=== PATIENT | male | born 1945 | race Caucasian/White ===

== ENCOUNTER 2019-06-20 02:36 | Inpatient (IN) | payer OTHER ==
--- NOTE | 2019-06-20 03:07 | ER ---
Nurse's Notes [facility] Name: Mj Mendez Age: 74 yrs Sex: Male : 1945 Arrival Date: 06/20/2019 Time: 02:37 Bed 5 Private MD: Diagnosis: Dyspnea;Weakness;Type 1 diabetes mellitus;Obesity, unspecified;Anemia, unspecified;Hypoglycemia, unspecified;Elevated white blood cell count Presentation: 06/20 02:53 Presenting complaint: [facility] called with report that pt dx pneumonia via chest ak1 xray on 06/17. pt started augment 875mg 06/18. pt denies SOB. pt called his daughter asking to come to ER due to cough x3 days. pt was given Tessalon eusebia at 2130. Transition of care: patient was not received from another setting of care. Onset of symptoms is unknown. Risk Assessment: Do you want to hurt yourself or someone else? Patient reports no desire to harm self or others. Initial Sepsis Screen: Does the patient meet any 2 criteria? No. Patient's initial sepsis screen is negative. Does the patient have a suspected source of infection? No. Patient's initial sepsis screen is negative. Care prior to arrival: None. 02:53 Method Of Arrival: EMS: [facility] ak1 02:53 Acuity: PAMELA 3 ak1 Triage Assessment: 03:02 General: Appears in no apparent distress. Behavior is calm, cooperative. Pain: Denies ak1 pain. EENT: No signs and/or symptoms were reported regarding the EENT system. Neuro: Level of Consciousness is awake, alert, obeys commands, Oriented to person, place, time, situation, Sound Person are equal bilaterally. Cardiovascular: No deficits noted. Respiratory: Reports pt dx pneumonia via chest xray 06/17/19. pt c/o nonproductive cough X3 days. GI: No signs and/or symptoms were reported involving the gastrointestinal system. : No signs and/or symptoms were reported regarding the genitourinary system. Derm: No signs and/or symptoms reported regarding the dermatologic system. Musculoskeletal: pt with right hip fx. Historical: - Allergies: 03:02 metformin; ak1 - Home Meds: 03:02 amlodipine 5 mg oral tab 1 tab once daily [Active]; asprin 325mg daily [Active]; ak1 metoprolol tartrate 50 mg oral tab 1 tab once daily [Active]; hydrochlorothiazide 25 mg Oral tab 1 tab once daily [Active]; Tessalon Perles 100 mg Oral cap 1 cap 3 times per day [Active]; Claritin 10 mg Oral tab 1 tab once daily [Active]; Insulin: Regular Sub-Q [Active]; losartan 100 mg oral tab 1 tab once daily [Active]; Augmentin Oral [Active]; Santyl 250 unit/gram Topical oint once daily [Active]; glipizide 10 mg oral tab 2 tabs once daily [Active]; omeprazole 20 mg Oral cpDR 1 cap once daily [Active]; terazosin oral 20mg oral [Active]; tramadol 50 mg Oral tab 1 tab every 12 hours PRN [Active]; colchicine 0.6 mg Oral tab 1 tab once daily [Active]; - PMHx: 03:02 Diabetes - IDDM; Hypertension; ak1 - PSHx: 03:02 back surgery; amputation left great toe; right hip fx; ak1 - Immunization history:: Adult Immunizations unknown. - Social history:: Smoking status: Patient/guardian denies using tobacco. - Ebola Screening: : No symptoms or risks identified at this time. - Family history:: not pertinent. Screenin:04 Abuse screen: Denies threats or abuse. Denies injuries from another. Nutritional ak1 screening: No deficits noted. Tuberculosis screening: No symptoms or risk factors identified. Fall Risk Gait- Impaired (20 pts.). Assessment: 03:37 General: Appears in no apparent distress. comfortable, Behavior is calm, cooperative. ak1 04:21 Reassessment: Patient appears in no apparent distress at this time. Patient and/or cc3 family updated on plan of care and expected duration. Pain level reassessed. Patient is alert, oriented x 3, equal unlabored respirations, skin warm/dry/pink. 05:26 Reassessment: Patient appears in no apparent distress at this time. Patient and/or ak1 family updated on plan of care and expected duration. Pain level reassessed. Patient is alert, oriented x 3, equal unlabored respirations, skin warm/dry/pink. Patient states feeling better. Patient states symptoms have improved. 06:30 Reassessment: Patient states feeling better. Patient states symptoms have improved. pt ak1 resting with eyes closed, resp even and unlabored. . 07:00 Reassessment: RECD REPORT FROM ROSANNA SHIRLEY. 74YO WM P/W COUGH, ADMIT IN PROCESS, DX WITH bp PNEUMONIA. 07:48 Reassessment: ADMIT COMPLETED, PT WES WITH TECH. bp Vital Signs: 02:52 BP 118 / 42; Pulse 89; Resp 18; Temp 98.1(O); Pulse Ox 97% on R/A; Weight 125.65 kg ak1 (R); Height 5 ft. 11 in. (180.34 cm) (R); Pain 0/10; 03:30 BP 133 / 62; Pulse 92; Resp 18; Pulse Ox 99% on R/A; ak1 04:20 BP 148 / 62; Pulse 86; Resp 19 S; Pulse Ox 97% on R/A; cc3 05:50 BP 172 / 57; Pulse 95; Resp 18; Temp 98.3; Pulse Ox 96% on R/A; Pain 0/10; ak1 06:30 BP 154 / 63; Pulse 98; Resp 16; Temp 98.3; Pulse Ox 96% on R/A; Pain 0/10; ak1 07:00 BP 153 / 61; Pulse 100; Resp 18; Pulse Ox 97% ; bp 02:52 Body Mass Index 38.63 (125.65 kg, 180.34 cm) ak1 ED Course: 02:37 Patient arrived in ED. ds1 02:39 Santiago Fuentes MD is Attending Physician. richard 02:52 Arm band placed on Patient placed in an exam room, on a stretcher, on pulse oximetry, ak1 Patient notified of wait time. 02:55 Triage completed. ak1 03:04 Patient has correct armband on for positive identification. Bed in low position. Call ak1 light in reach. Side rails up X2. Adult w/ patient. Pulse ox on. NIBP on. 03:05 Sonny Mccain DO is Hospitalizing Provider. richard 03:10 XRAY Chest (1 view) In Process Unspecified. EDMS 03:15 Initial lab(s) drawn, by tn, sent to lab. First set of blood cultures drawn Second set ak1 of blood cultures drawn by me, EKG done, by ED staff, reviewed by Santiago Fuentes MD X-ray(s) taken. 03:37 Rosanna Holland, RN is Primary Nurse. ak1 03:37 Inserted saline lock: 20 gauge in right forearm, using aseptic technique. Blood ak1 collected. 03:39 No provider procedures requiring assistance completed. Patient admitted, IV remains in ak1 place. 05:08 CT Chest Abdomen Pelvis W/O Contrast In Process Unspecified. EDMS Administered Medications: 03:27 Drug: NS 0.9% 1000 ml Route: IV; Rate: 125 ml/hr; Site: right hand; cc3 05:13 Follow up: IV Status: Infusion continued upon admission ak1 04:16 Drug: Zosyn 3.375 grams Route: IVPB; Infused Over: 30 mins; Site: right forearm; ak1 05:20 Follow up: IV Status: Completed infusion ak1 04:30 Drug: Tussionex Pennkinetic ER 5 ml Route: PO; cc3 05:05 Follow up: Response: No adverse reaction; Marked relief of symptoms cc3 04:55 Drug: Xopenex 1.25 mg Route: Inhalation; cc3 04:55 Drug: AtroVENT Aerosol 0.5 mg Route: Inhalation; cc3 05:19 Drug: Lovenox 40 mg Route: Sub-Q; Site: right lower abdomen; ak1 05:20 Follow up: Response: No adverse reaction ak1 05:20 Drug: Magnesium Sulfate 1 grams Route: IVPB; Infused Over: 1 hrs; Site: right forearm; ak1 06:29 Follow up: IV Status: Completed infusion ak1 05:25 Drug: Zithromax 500 mg Route: IVPB; Infused Over: 1 hrs; Site: right forearm; ak1 06:29 Follow up: IV Status: Completed infusion ak1 Outcome: 03:06 Decision to Hospitalize by Provider. richard 03:38 Condition: stable ak1 03:38 Instructed on the need for admit. 07:47 Admitted to Med/surg accompanied by tech, family with patient, via stretcher, room 423, bp with chart, Report called to QUIRINO SHIRLEY 08:01 Patient left the ED. bp Signatures: Dispatcher [employer] Santiago Dixon MD MD cha Sanford, Demi ds1 Rosanna Holland, RN RN ak1 Jonathan Ramirez RN RN bp [place] cc3
--- NOTE | 2019-06-20 03:07 | EDPHYS ---
Physician Documentation [facility] Name: Mj Mendez Age: 74 yrs Sex: Male : 1945 Arrival Date: 06/20/2019 Time: 02:37 Bed 5 Private MD: MELISSA Physician Santiago Fuentes HPI: 06/20 03:01 This 74 yrs old Male presents to ER via EMS with complaints of cough and sob. richard 03:01 The patient has shortness of breath at rest, with light activity. Onset: The richard symptoms/episode began/occurred 3 day(s) ago. Duration: The symptoms are continuous, and are steadily getting worse. The patient's shortness of breath has no apparent modifying factors. The patient or guardian reports cough. Modifying factors: The symptoms are alleviated by nothing. the symptoms are aggravated by lying flat. Associated signs and symptoms: Pertinent positives: non-productive cough, weakness. Historical: - Allergies: 03:02 metformin; ak1 - Home Meds: 03:02 amlodipine 5 mg oral tab 1 tab once daily [Active]; asprin 325mg daily [Active]; ak1 metoprolol tartrate 50 mg oral tab 1 tab once daily [Active]; hydrochlorothiazide 25 mg Oral tab 1 tab once daily [Active]; Tessalon Perles 100 mg Oral cap 1 cap 3 times per day [Active]; Claritin 10 mg Oral tab 1 tab once daily [Active]; Insulin: Regular Sub-Q [Active]; losartan 100 mg oral tab 1 tab once daily [Active]; Augmentin Oral [Active]; Santyl 250 unit/gram Topical oint once daily [Active]; glipizide 10 mg oral tab 2 tabs once daily [Active]; omeprazole 20 mg Oral cpDR 1 cap once daily [Active]; terazosin oral 20mg oral [Active]; tramadol 50 mg Oral tab 1 tab every 12 hours PRN [Active]; colchicine 0.6 mg Oral tab 1 tab once daily [Active]; - PMHx: 03:02 Diabetes - IDDM; Hypertension; ak1 - PSHx: 03:02 back surgery; amputation left great toe; right hip fx; ak1 - Immunization history:: Adult Immunizations unknown. - Social history:: Smoking status: Patient/guardian denies using tobacco. - Ebola Screening: : No symptoms or risks identified at this time. - Family history:: not pertinent. ROS: 03:01 Constitutional: Negative for fever, chills, and weight loss, Eyes: Negative for injury, richard pain, redness, and discharge, ENT: Negative for injury, pain, and discharge, Neck: Negative for injury, pain, and swelling, Cardiovascular: Negative for chest pain, palpitations, and edema, Abdomen/GI: Negative for abdominal pain, nausea, vomiting, diarrhea, and constipation, Back: Negative for injury and pain, : Negative for injury, bleeding, discharge, and swelling, Skin: Negative for injury, rash, and discoloration, Neuro: Negative for headache, weakness, numbness, tingling, and seizure, Psych: Negative for depression, anxiety, suicide ideation, homicidal ideation, and hallucinations, Allergy/Immunology: Negative for hives, rash, and allergies, Endocrine: Negative for neck swelling, polydipsia, polyuria, polyphagia, and marked weight changes, Hematologic/Lymphatic: Negative for swollen nodes, abnormal bleeding, and unusual bruising. 03:01 Respiratory: Positive for cough. 03:01 MS/extremity: Positive for decreased range of motion, pain, swelling, tenderness, of the right leg. Exam: 03:01 Constitutional: This is a well developed, well nourished patient who is awake, alert, richard and in no acute distress. Head/Face: Normocephalic, atraumatic. Eyes: Pupils equal round and reactive to light, extra-ocular motions intact. Lids and lashes normal. Conjunctiva and sclera are non-icteric and not injected. Cornea within normal limits. Periorbital areas with no swelling, redness, or edema. ENT: Nares patent. No nasal discharge, no septal abnormalities noted. Tympanic membranes are normal and external auditory canals are clear. Oropharynx with no redness, swelling, or masses, exudates, or evidence of obstruction, uvula midline. Mucous membranes moist. Neck: Trachea midline, no thyromegaly or masses palpated, and no cervical lymphadenopathy. Supple, full range of motion without nuchal rigidity, or vertebral point tenderness. No Meningismus. Chest/axilla: Normal chest wall appearance and motion. Nontender with no deformity. No lesions are appreciated. Cardiovascular: Regular rate and rhythm with a normal S1 and S2. No gallops, murmurs, or rubs. Normal PMI, no JVD. No pulse deficits. Abdomen/GI: Soft, non-tender, with normal bowel sounds. No distension or tympany. No guarding or rebound. No evidence of tenderness throughout. Back: No spinal tenderness. No costovertebral tenderness. Full range of motion. Male : Normal genitalia with no discharge or lesions. Skin: Warm, dry with normal turgor. Normal color with no rashes, no lesions, and no evidence of cellulitis. Neuro: Awake and alert, GCS 15, oriented to person, place, time, and situation. Cranial nerves II-XII grossly intact. Motor strength 5/5 in all extremities. Sensory grossly intact. Cerebellar exam normal. Normal gait. Psych: Awake, alert, with orientation to person, place and time. Behavior, mood, and affect are within normal limits. 03:01 Respiratory: mild respiratory distress is noted, Respirations: normal, Breath sounds: decreased breath sounds, rhonchi, that are mild, are scattered, Respiratory rate: 20 Vital Signs: 02:52 BP 118 / 42; Pulse 89; Resp 18; Temp 98.1(O); Pulse Ox 97% on R/A; Weight 125.65 kg ak1 (R); Height 5 ft. 11 in. (180.34 cm) (R); Pain 0/10; 03:30 BP 133 / 62; Pulse 92; Resp 18; Pulse Ox 99% on R/A; ak1 04:20 BP 148 / 62; Pulse 86; Resp 19 S; Pulse Ox 97% on R/A; cc3 05:50 BP 172 / 57; Pulse 95; Resp 18; Temp 98.3; Pulse Ox 96% on R/A; Pain 0/10; ak1 06:30 BP 154 / 63; Pulse 98; Resp 16; Temp 98.3; Pulse Ox 96% on R/A; Pain 0/10; ak1 07:00 BP 153 / 61; Pulse 100; Resp 18; Pulse Ox 97% ; bp 02:52 Body Mass Index 38.63 (125.65 kg, 180.34 cm) ak1 MDM: 02:39 Patient medically screened. [facility] 03:04 Data reviewed: vital signs, nurses notes, lab test result(s), EKG, radiologic studies, [facility] CT scan, plain films. 06/20 02:43 Order name: Basic Metabolic Panel; Complete Time: 03:57 [facility] 06/20 02:43 Order name: CBC with Diff; Complete Time: 03:56 [facility] 06/20 02:43 Order name: LFT's; Complete Time: 03:57 [facility] 06/20 02:43 Order name: Magnesium; Complete Time: 03:57 [facility] 06/20 02:43 Order name: NT PRO-BNP; Complete Time: 03:57 [facility] 06/20 02:43 Order name: PT-INR; Complete Time: 03:56 [facility] 06/20 02:43 Order name: Troponin (emerg Dept Use Only); Complete Time: 03:57 [facility] 06/20 02:43 Order name: Blood Culture Adult (2) [facility] 06/20 02:43 Order name: Urine Culture [facility] 06/20 02:43 Order name: Procalcitonin; Complete Time: 04:48 [facility] 06/20 02:43 Order name: Lactate; Complete Time: 03:56 [facility] 06/20 02:43 Order name: Lipase; Complete Time: 03:57 [facility] 06/20 03:57 Order name: Type And Screen [facility] 06/20 05:03 Order name: ABO/RH no charge [facility] 06/20 02:43 Order name: XRAY Chest (1 view) [facility] 06/20 02:43 Order name: EKG; Complete Time: 02:45 [facility] 06/20 02:43 Order name: Cardiac monitoring; Complete Time: 03:20 [facility] 06/20 04:03 Order name: US Extremity Venous W Compression Kaveh: in the morning ok [facility] 06/20 04:37 Order name: CT Chest Abdomen Pelvis W/O Contrast [facility] 06/20 05:22 Order name: Urine Dipstick--Ancillary (enter results) [facility] 06/20 05:42 Order name: Urine Dipstick-Ancillary [facility] 06/20 02:43 Order name: EKG - Nurse/Tech; Complete Time: 03:58 [facility] 06/20 02:43 Order name: IV Saline Lock; Complete Time: 03:58 [facility] 06/20 02:43 Order name: Labs collected and sent; Complete Time: 03:58 [facility] 06/20 02:43 Order name: O2 Per Protocol; Complete Time: 03:04 [facility] 06/20 02:43 Order name: O2 Sat Monitoring; Complete Time: 03:04 [facility] 06/20 02:43 Order name: Urine Dipstick-Ancillary (obtain specimen); Complete Time: 05: [facility] 06/20 04:00 Order name: PO challenge; Complete Time: 04:17 [facility] Administered Medications: 03:27 Drug: NS 0.9% 1000 ml Route: IV; Rate: 125 ml/hr; Site: right hand; cc3 05:13 Follow up: IV Status: Infusion continued upon admission ak1 04:16 Drug: Zosyn 3.375 grams Route: IVPB; Infused Over: 30 mins; Site: right forearm; ak1 05:20 Follow up: IV Status: Completed infusion ak1 04:30 Drug: Tussionex Pennkinetic ER 5 ml Route: PO; cc3 05:05 Follow up: Response: No adverse reaction; Marked relief of symptoms cc3 04:55 Drug: Xopenex 1.25 mg Route: Inhalation; cc3 04:55 Drug: AtroVENT Aerosol 0.5 mg Route: Inhalation; cc3 05:19 Drug: Lovenox 40 mg Route: Sub-Q; Site: right lower abdomen; ak1 05:20 Follow up: Response: No adverse reaction ak1 05:20 Drug: Magnesium Sulfate 1 grams Route: IVPB; Infused Over: 1 hrs; Site: right forearm; ak1 06:29 Follow up: IV Status: Completed infusion ak1 05:25 Drug: Zithromax 500 mg Route: IVPB; Infused Over: 1 hrs; Site: right forearm; ak1 06:29 Follow up: IV Status: Completed infusion ak1 Disposition: 06/20/19 03:06 Hospitalization ordered by Sonny Mccain for Inpatient Admission. Preliminary diagnosis are Dyspnea, Weakness, Type 1 diabetes mellitus, Obesity, unspecified, Anemia, unspecified, Hypoglycemia, unspecified, Elevated white blood cell count. - Bed requested for Telemetry/MedSurg (Inpatient). - Status is Inpatient Admission. bp - Condition is Fair. - Problem is new. - Symptoms have improved. UTI on Admission? No Signatures: Dispatcher [employer] EDSantiago Diamond MD MD cha Krenek, Amber RN RN Jessica Granger, RN RN Jonathan Garza RN RN Nereyda Nguyen cc3 Corrections: (The following items were deleted from the chart) 04:01 03:06 Hospitalization Ordered by Sonny Mccain DO for Inpatient Admission. Preliminary richard diagnosis is Dyspnea; Weakness; Type 1 diabetes mellitus; Obesity, unspecified. Bed requested for Telemetry/MedSurg (Inpatient). Status is Inpatient Admission. Condition is Fair. Problem is new. Symptoms have improved. UTI on Admission? No. richard 05:03 04:01 06/20/2019 03:06 Hospitalization Ordered by Sonny Mccain DO for Inpatient cg Admission. Preliminary diagnosis is Dyspnea; Weakness; Type 1 diabetes mellitus; Obesity, unspecified; Anemia, unspecified; Hypoglycemia, unspecified; Elevated white blood cell count. Bed requested for Telemetry/MedSurg (Inpatient). Status is Inpatient Admission. Condition is Fair. Problem is new. Symptoms have improved. UTI on Admission? No. richard 05:09 04:21 [place] Wo Con+CT.RAD.BRZ ordered. [facility] EDIL 08:01 05:03 06/20/2019 03:06 Hospitalization Ordered by Sonny Mccain DO for Inpatient bp Admission. Preliminary diagnosis is Dyspnea; Weakness; Type 1 diabetes mellitus; Obesity, unspecified; Anemia, unspecified; Hypoglycemia, unspecified; Elevated white blood cell count. Bed requested for Telemetry/MedSurg (Inpatient). Status is Inpatient Admission. Condition is Fair. Problem is new. Symptoms have improved. UTI on Admission? No. cg
[2019-06-20] MEDS ORDERED: NA CHLORIDE 0.9% 1,000 ML ONE (03:22)
[2019-06-20 03:40] LABS: Absolute Lymphocytes (CBC) 2.1 K/uL (0.7-4.9); Basophils % 0.8 % (0-1.3); Hematocrit 28.8 % (39.6-49.0); Lymphocytes % 14.6 % (15.3-44.8); MPV 6.9 fL (7.6-11.3); RBC Red Blood Cell Count 3.59 M/uL (4.33-5.43)
[2019-06-20 03:41] LABS: Protime INR 1.25
[2019-06-20 03:55] LABS: ALT/SGPT 144 U/L (12-78); AST/SGOT 76 U/L (15-37); Alkaline Phosphatase 142 U/L (45-117); BUN Blood Urea Nitrogen 47 mg/dL (7-18); Bicarbonate 22 mmol/L (21-32); Bilirubin Direct 0.1 mg/dL (0-0.2); Bilirubin Total 0.3 mg/dL (0.2-1.0); Glucose Level 62 mg/dL (74-106); Lipase 414 U/L (73-393); Magnesium 1.6 mg/dL (1.8-2.4); NT PRO-BNP 384 pg/mL (<450); Potassium 3.8 mmol/L (3.5-5.1); Protein, Total 6.9 g/dL (6.4-8.2); Sodium Level 142 mmol/L (136-145); Troponin (Emerg Dept Use Only) < 0.02 ng/mL (0.0-0.045)
[2019-06-20] MEDS ORDERED: MAGNESIUM SULFATE 1 gm IVPB 1 GM/100 ML BAG IV ONE ×2 (04:03→21:00)
[2019-06-20] MEDS ORDERED: PIPER/TAZO/NS 3.375gm 3.375 GM/100 ML BAG ONE (04:03)
[2019-06-20] MEDS ORDERED: LEVALBUTEROL 1.25 MG/3 ML NEB ONE (04:26)
[2019-06-20] MEDS ORDERED: IPRATROPIUM BROM 0.5MG/2.5ML ONE (04:26)
[2019-06-20] MEDS ORDERED: HYDROCODONE/CHLORPHEN 5 ML/OSYR ONE (04:27)
[2019-06-20] MEDS ORDERED: NA CHLORIDE 0.9% 250 ML ONE (04:28)
[2019-06-20] MEDS ORDERED: AZITHROMYCIN 500 MG INJ IVPB ONE (04:28)
--- NOTE | 2019-06-20 05:16 | P.HP ---
Certification for Inpatient Patient admitted to: Inpatient With expected LOS: >2 Midnights Patient will require the following post-hospital care: Other (Inpatient rehab vs back to SNF) Practitioner: I am a practitioner with admitting privileges, knowledge of patient current condition, hospital course, and medical plan of care. Services: Services provided to patient in accordance with Admission requirements found in Title 42 Section 412.3 of the Code of Federal Regulations Patient History Date of Service: 06/20/19 Primary Care Provider: [facility] Reason for admission: Cough, shortness of breath History of Present Illness: 74-year-old male presented to the emergency room from the skilled facility due to increasing cough, shortness of breath. Patient with history of diabetes mellitus type 2 insulin dependent, hypertension , gout, and obesity. Patient had right hip replacement early this month. He was transferred from the [facility] to the skilled facility. Since being at the skilled facility. He has had poor oral intake. Physical therapy has been slow. Over the last 3 days he has been having increasing cough, congestion and shortness of breath. Some chills noted. He denies fever. He was to start antibiotic therapy for possible underlying pneumonia. He came to the ER for further evaluation. Patient evaluated. White count 14.3, hemoglobin 9.1. In the ER patient evaluated. White count 14.3, hemoglobin 9.1. Platelet count 440. Sodium 142, potassium 3.8. BUN of 43, creatinine 1.3 with a GFR 52. 62. Lactic acid within normal range. AST ALT elevated at 76 and 144 respectively. Troponin unremarkable. Lipase 414. Chest x-ray shows pneumonia. CT chest and abdomen pending. Patient admitted for further evaluation and treatment When I saw the patient ER, he appeared comfortable. Oxygen saturation within normal range. Family reports that since being in the skilled facility, physical therapy has not done much. Recent right hip replacement done early this month. He has had poor oral intake. Decreased physical status noted. Patient is obese. Family concerned of pressor ulcers to the buttocks region. Family desires inpatient rehab versus skilled placement at discharge Allergies No Known Allergies Allergy (Unverified 10/24/15 08:43) Home medications list reviewed: Yes Home Medications: Amlodipine Besylate [Norvasc] 10 mg PO DAILY 10/24/15 Aspirin [Aspirin EC] 81 mg PO DAILY 10/24/15 Clobetasol Propionate/Emoll [Clobetasol Emollient 0.05% Crm] 1 gm TOP BID Ferrous Gluconate 324 mg PO DAILY 10/24/15 Finasteride [Proscar] 5 mg PO DAILY 10/24/15 Folic Acid 1 mg PO DAILY 10/24/15 Gabapentin [Gralise] 600 mg PO BID 10/24/15 Glipizide [Glipizide Xl] 10 mg PO DAILY 10/24/15 Lisinopril [Zestril] 40 mg PO DAILY 10/24/15 Losartan Potassium [Cozaar] 100 mg PO DAILY 10/24/15 Metformin HCl [Metformin HCl ER] 1,000 mg PO BID 10/24/15 Metoprolol Tartrate [Lopressor] 50 mg PO BID 10/24/15 Omeprazole 1 tab PO DAILY 10/24/15 Terazosin HCl [Hytrin] 20 mg PO BEDTIME 10/24/15 hydroCHLOROthiazide [Hydrochlorothiazide] 25 mg PO DAILY 10/24/15 - Past Medical/Surgical History Diabetic: Yes -: HTN -: Hyperlipidemia -: Diabetes mellitus type 2 insulin dependent -: Hx : Amputation left 2nd and 3rd toe -: BPH -: Osteoarthritis -: Obesity -: Amputation 2003 -: Appendix 1999 -: Gall bladder 2007 -: Right hip replacement Psychosocial/ Personal History: Patient normally lives at home. He is - Family History Family History: Reviewed- Non-Contributory - Social History Smoking Status: Never smoker Alcohol use: No CD- Drugs: No Caffeine use: Yes Place of Residence: Home Review of Systems General: Chills, Weakness, As per HPI Eyes: Unremarkable ENT: Nose Congestion, As per HPI Respiratory: Cough, Shortness of Breath, As per HPI Cardiovascular: Unremarkable Gastrointestinal: Unremarkable Genitourinary: Unremarkable Musculoskeletal: As per HPI Integumentary: Unremarkable Neurological: Unremarkable Lymphatics: Unremarkable Physical Examination - Physical Exam General: Alert, In no apparent distress, Oriented x3, Cooperative HEENT: Atraumatic, Normocephalic, PERRLA, Mucous membr. moist/pink Neck: Supple, No Thyromegaly Respiratory: Crackles/rales (Crackles to the bases bilateral) Cardiovascular: Normal pulses, Regular rate/rhythm Gastrointestinal: Normal bowel sounds, Soft and benign, Non-distended, No ascites, No tenderness, No masses, No rebound, No guarding Musculoskeletal: No erythema, No tenderness, No warmth Integumentary: No tenderness/swelling, No erythema, No warmth, No cyanosis, Other (Patient with history of left toes amputation) Neurological: Normal speech, Normal strength at 5/5 x4 extr, Normal tone, Normal affect - Studies Laboratory Data (last 24 hrs) 06/20/19 03:23: PT 14.6 H, INR 1.25 06/20/19 03:23: WBC 14.3 H D, Hgb 9.1 L, Hct 28.8 L, Plt Count 440 H 06/20/19 03:23: Sodium 142, Potassium 3.8, BUN 47 H, Creatinine 1.33 H, Glucose 62 L, Magnesium 1.6 L, Total Bilirubin 0.3, AST 76 H, ALT 144 H, Alkaline Phosphatase 142 H, Lipase 414 H Assessment and Plan - Plan Impression: Cough, shortness of breast suspect bilateral pneumonia Recent right hip replacement Anemia likely of chronic disease Diabetes mellitus type 2 insulin-dependent with hypoglycemia Renal insufficiency likely dehydration Hypertension Elevated liver function suspect fatty liver BPH Plan: Cough, shortness of breast suspect bilateral pneumonia: Patient will be admitted for further evaluation and treatment. CT scan chest/abdomen pelvis pending. Will start IV Rocephin and Zithromax. Pharmacy to monitor and adjust. Will provide medication for cough and congestion. Will maintain sats above 90%. Encourage incentive spirometer. Will provide DVT prophylaxis- Lovenox. Will provide IV fluids. Physical therapy will assess ambulation. Family desires patient to go to inpatient rehab versus skilled placement where he is at currently. Daytime hospitalist to continue his care. Anticipate discharge to inpatient rehab versus skilled placement likely on Saturday. Recent right hip replacement: Encourage physical therapy. Will provide incentive spirometer. Family desires patient to go to inpatient rehab. Await recommendation by physical therapy. Otherwise patient will return back to skilled placement facility. Anemia likely of chronic disease: Suspect iron deficiency. Will check iron and B12 studies. Patient may require supplementation. Will monitor hemoglobin. Diabetes mellitus type 2 insulin-dependent with hypoglycemia: Will need to monitor for hypoglycemia. Will continue to monitor Accu-Cheks. Will provide insulin sliding scale. Will hold off on basal insulin and his oral medication. Will provide IV fluids. Renal insufficiency likely dehydration: Will provide IV fluids. Will monitor and adjust appropriately. Hypertension: Restart losartan and metoprolol. Hold off on hydrochlorothiazide at this time. Will monitor-appropriately. Elevated liver function suspect fatty liver: Await CT scan. Monitor liver function closely. Suspect fatty liver disease. BPH: Continue medication. Discharge Plan: Home Plan to discharge in: Greater than 2 days - Advance Directives Does patient have a Living Will: No Does patient have a Durable POA for Healthcare: No - Code Status/Comfort Care Code Status Assessed: Yes (Patient is full code) Time Spent Managing Pts Care (In Minutes): 55
[2019-06-20] MEDS ORDERED: ENOXAPARIN 40 MG/0.4 ML SQ ONE (05:17)
[2019-06-20 05:42] LABS: Urine Blood 1+ (NEG); Urine Glucose NEGATIVE (NEG); Urine Protein NEGATIVE (NEG); Urine Specific Gravity 1.015 (1.005-1.030); Urine pH 5.5 (5.0-7.0)
[2019-06-20] MEDS ORDERED: ALBUTEROL 2.5 MG/3 ML NEB SOL NEB PRN (08:42)
[2019-06-20] MEDS ORDERED: BENZONATATE 100 MG CAP PO PRN (08:42)
[2019-06-20] MEDS: NACHLORIDE 0.45% 1,000 ML IV SCH (08:42)
[2019-06-20] MEDS ORDERED: IPRATROPIUM BROM 0.5MG/2.5ML NEB PRN (08:42)
[2019-06-20] MEDS: INSULIN -REGULAR HUMAN 50 UNIT/0.5 ML ML SQ SCH ×4 (08:42→21:00)
[2019-06-20] MEDS ORDERED: ONDANSETRON 4 MG/2 ML VIAL IV PRN (08:42)
[2019-06-20] MEDS: METOPROLOL XL 50 MG TAB PO SCH (08:42)
[2019-06-20] MEDS ORDERED: ACETAMINOPHEN 500 MG TAB PO PRN (08:42)
[2019-06-20] MEDS: LOSARTAN POTASSIUM 50 MG TABLET PO SCH (09:00)
[2019-06-20] MEDS ORDERED: ENOXAPARIN 40 MG/0.4 ML SQ SCH (09:00)
[2019-06-20 09:59] LABS: Ferritin 566.7 ng/mL (26-388)
[2019-06-20] MEDS: PANTOPRAZOLE 40MG TABLET PO SCH (10:22)
[2019-06-20] MEDS: GUAIFENESIN 600 MG SA TAB PO SCH ×2 (10:22→21:01)
[2019-06-20] MEDS: LORATADINE 10 MG TAB PO SCH (10:22)
[2019-06-20] MEDS: ASPIRIN EC 81 MG TAB PO SCH (10:22)
--- NOTE | 2019-06-20 11:31 | RAD REPORT ---
EXAM DESCRIPTION: RAD - Chest Single View - 06/20/2019 3:11 am CLINICAL HISTORY: Cough;Dyspnea Chest pain. COMPARISON: No comparisons FINDINGS: Portable technique limits examination quality. Small right pleural effusion infiltrate suspected. Calcified pleural plaques are evident. The heart i s normal in size. No displaced fractures. IMPRESSION: Small right base infiltrate suspected.
--- NOTE | 2019-06-20 12:03 | PN ---
Date of Progress Note: 06/20/2019 Code Status: Full. Patient is seen and examined, chart reviewed and case discussed with RN. Family at the bedside. Treatment plan explained. All questions answered. Medications: List reviewed. Physical Examination: Vital Signs: Temperature 98.3, heart rate 98, blood pressure 154/63, respirations 16, O2 at 96% on room air. General: Awake, alert, oriented x3. Elderly male, obese, ill-appearing. CV: S1, S2. Regular rate and rhythm. Peripheral pulses present. Respiratory: Diminished breath sounds. No wheezing. Some rhonchi heard. No use of accessory muscles. Gastrointestinal: Abdomen is soft, nondistended. Positive bowel sounds. Nontender. Extremities: No clubbing, cyanosis. Patient does have peripheral edema. Neurologic: Nonfocal. Musculoskeletal: Right hip incision site clean, dry, intact. Left foot status post amputation of the toes. Skin: The patient has multiple ulcerations including bilateral heels and stage I on the sacrum. Laboratory Data: Sodium 142, potassium 3.8, chloride 111, CO2 of 22, BUN 47, creatinine 1.33, glucose 62. Hemoglobin A1c pending. Iron 12, TIBC 155, transferrin 111, ferritin 566, magnesium 1.6, albumin is 2. WBC 14.3, H and H 9.1 and 28.8. Platelets 440. Cultures pending. Influenza screen, throat culture pending. Assessment And Plan: A 74-year-old male with: 1. Bilateral pneumonia. We will continue with IV antibiotics. Encourage incentive spirometer and physical therapy to ambulate patient and to have the patient sit up in the chair. We will follow up on blood cultures and sputum cultures. 2. Recent right hip replacement. Continue physical therapy. Continue DVT prophylaxis with Lovenox. 3. Anemia of chronic disease and iron deficiency. We will continue to monitor H and H. 4. Diabetes mellitus type 2, insulin dependent with hypoglycemia. We will continue with sliding scale. Hold off on basal insulin and oral medications. We will monitor. 5. Renal insufficiency, likely due to dehydration. We will continue IV fluids. Monitor kidney function. Avoid NSAIDs. 6. Hypomagnesemia. We will replace and monitor. 7. Severe protein-calorie malnutrition. Albumin is 2. 8. Essential hypertension. Continue losartan and metoprolol. Hold off hydrochlorothiazide. 9. Elevated liver function, likely due to fatty liver disease. CT scan of the abdomen is pending. 10. Benign prostatic hypertrophy. Continue home medications. 11. Obesity, BMI 38.6. 12. DVT prophylaxis. Lovenox. Plan: Inpatient rehab consultation, PT evaluation, OT evaluation. Anticipate discharge to rehab likely on Saturday. 17:01 ADDENDUM: Blood sugar levels in the 200s. Will resume lower dose of bedtime lantus. /NAINA Voice ID: [id number] Report ID: [id number] MTDD
--- NOTE | 2019-06-20 14:13 | EKG ---
Test Date: 2019-06-20 Test Time: 03:22:30 Interior Design Assistant: HELADIO MEASUREMENT RESULTS: Intervals: Rate: 88 AK: 224 QRSD: 80 QT: 344 QTc: 416 [place]: P: 112 AK: 224 QRS: 54 T: 43 INTERPRETIVE STATEMENTS: Sinus rhythm with 1st degree AV block Nonspecific T wave abnormality Abnormal ECG Compared to ECG 03/24/2003 18:27:00 First degree AV block now present T-wave abnormality now present Sinus tachycardia no longer present ST (T wave) deviation no longer present Electronically Signed On 06-20-19 14:13:17 CDT by Kavon Polo
[2019-06-20 16:21] VITALS: BMI 38.6
[2019-06-20] MEDS ORDERED: INSULIN DETEMIR 50 UNIT SQ SCH (21:00)
[2019-06-20] MEDS: INSULIN GLARGINE 100 UNITS/ML SQ SCH (21:00)
[2019-06-20] MEDS ORDERED: GLIPIZIDE 20 MG PO SCH (21:00)
[2019-06-20] MEDS: TERAZOSIN HCL 5 MG CAP PO SCH (21:00)
[2019-06-21] MEDS: NACHLORIDE 0.45% 1,000 ML IV SCH ×2 (04:42→17:23)
[2019-06-21 05:56] LABS: Basophils % 0.8 % (0-1.3); Hematocrit 25.2 % (39.6-49.0); Lymphocytes % 16.3 % (15.3-44.8); MPV 6.9 fL (7.6-11.3); RBC Red Blood Cell Count 3.16 M/uL (4.33-5.43)
[2019-06-21] MEDS: AZITHROMYCIN IV 500 MG in NA CHLORIDE 0.9% 250 ML IVPB SCH (05:57)
[2019-06-21] MEDS: METOPROLOL XL 50 MG TAB PO SCH (05:57)
[2019-06-21] MEDS: PANTOPRAZOLE 40MG TABLET PO SCH (05:57)
[2019-06-21 06:04] LABS: Bilirubin Total 0.7 mg/dL (0.2-1.0); Magnesium 1.6 mg/dL (1.8-2.4); Potassium 4.1 mmol/L (3.5-5.1); Protein, Total 6.5 g/dL (6.4-8.2)
[2019-06-21] MEDS ORDERED: MAGNESIUM SULFATE 1 gm IVPB 1 GM/100 ML BAG IV ONE (06:11)
[2019-06-21] MEDS: INSULIN -REGULAR HUMAN 50 UNIT/0.5 ML ML SQ SCH ×4 (07:30→21:29)
--- NOTE | 2019-06-21 07:51 | RAD REPORT ---
EXAM DESCRIPTION: US - Extrem Venous W Compress Kaveh - 06/20/2019 9:49 pm CLINICAL HISTORY: Bilateral lower extremity pain COMPARISON: None. TECHNIQUE: Real-time sonographic evaluation of the bilateral lower extremity common femoral, superfi cial femoral, popliteal and posterior tibial veins was performed. FINDINGS: Normal compressibility, flow augmentation, phasic flow and spontaneous flow are identified in the left and right lower extremity common femoral, superficial femoral, popliteal and posterior t ibial veins. No intraluminal filling defects seen. There is a 6 x 4 x 2 centimeter complex hypoechoic collection posterior to the left. This is most lik reginald a popliteal fossa cyst with hemorrhagic debris. IMPRESSION: No DVT in either lower extremity. Large complex collection posterior to the knee 6 x 4 x 2 cm most likely hemorrhagic debris in a Peters 's cyst.
[2019-06-21] MEDS: ENOXAPARIN 40 MG/0.4 ML SQ SCH (08:45)
[2019-06-21] MEDS: ASPIRIN EC 81 MG TAB PO SCH (08:45)
[2019-06-21] MEDS: CEFTRIAXONE/SWI 1gm 1 GM/10 ML SYR IV SCH (08:46)
[2019-06-21] MEDS: COLCHICINE 0.6 MG TAB PO SCH (08:46)
[2019-06-21] MEDS: LORATADINE 10 MG TAB PO SCH (08:46)
[2019-06-21] MEDS: GUAIFENESIN 600 MG SA TAB PO SCH ×2 (08:46→20:18)
[2019-06-21] MEDS: LOSARTAN POTASSIUM 50 MG TABLET PO SCH (08:46)
[2019-06-21] MEDS: MEDIHONEY 44 ML TOPICAL TUBE TOP SCH (09:00)
[2019-06-21] MEDS ORDERED: INSULIN DETEMIR 55 UNIT SQ SCH (09:00)
[2019-06-21] MEDS ORDERED: COLLAGENASE 30 GM OINTMENT TOP SCH (09:00)
--- NOTE | 2019-06-21 14:44 | RAD REPORT ---
EXAM DESCRIPTION: RAD - Hip Right 2 View - 06/21/2019 1:49 pm CLINICAL HISTORY: Right hip surgery, pelvic pain COMPARISON: None. FINDINGS: AP and frog-leg views of the right hip were obtained. Right total prosthesis of the hip h as been placed. Hardware is well positioned. No suspicious or unexpected finding. Detail is limited b y body habitus. IMPRESSION: Right total hip prosthesis in place. No suspicious or unexpected finding.
--- NOTE | 2019-06-21 15:40 | PN ---
Date of Progress Note: 06/21/2019 Subjective: Patient is seen and examined. Chart reviewed and case discussed with RN. Patient did w ork with the physical therapist yesterday, overall feels better. Medication List: Reviewed. Physical Examination: Vital Signs: Temperature 97.8, heart rate 72, blood pressure 143/66, respirations 18, O2 at 95% on r oom air. General: Awake, alert, oriented x3, obese male, somewhat ill appearing. No acute distress. CV: S1, S2. Peripheral pulses present. Regular rate and rhythm. Respiratory: Diminished breath sounds, rhonchi present. No wheezing or crackles. No use of accesso ry muscles. Gastrointestinal: Abdomen is soft, nondistended, nontender. Positive bowel sounds. Extremities: No clubbing, cyanosis, or edema. Neuro: Nonfocal. Musculoskeletal: Decreased range of motion of the right lower extremity. Incision site clean, dry, intact of the hip. Laboratory Data: Sodium 141, potassium 4.1, chloride 110, CO2 of 23, BUN 30, creatinine 0.99, glucos e 178, calcium 8.7, magnesium 1.6, albumin is 2. WBC 12.1, H and H 8.1 and 25.2, platelets 392. Blo od cultures, no growth to date. Urine culture, mixed marcos. Influenza screen still pending. Throat culture pending. Wound from the left heel is pending. Sputum cultures are also pending. Assessment And Plan: A 74-year-old male with: 1.Bilateral pneumonia. We will continue IV antibiotics. Encourage ambulation and incentive spirome try. I asked nurse to place the patient in the chair today for several hours. 2.Recent right hip replacement. We will continue PT. Continue deep venous thrombosis prophylaxis w ith Lovenox. 3.Anemia of chronic disease and iron deficiency. We will monitor H and H. 4.Diabetes mellitus type, insulin requiring with hypoglycemia. Continue with sliding scale insulin. 5.Renal insufficiency, likely due to dehydration. Continue IV fluids. 6.Hypomagnesemia. Replace and monitor. 7.Severe protein-calorie malnutrition. Albumin is 2. We will continue with supplementation. 8.Essential hypertension, stable. Continue home medications. 9.Elevated liver function, likely due to fatty liver disease. We will continue to monitor. 10.Benign prostatic hypertrophy, stable. 11.Obesity, BMI 38.6. 12.Deep venous thrombosis prophylaxis with Lovenox. /NAINA Voice ID: [id number] Report ID: [id number]
[2019-06-21] MEDS: TERAZOSIN HCL 5 MG CAP PO SCH (21:24)
[2019-06-21] MEDS: INSULIN GLARGINE 100 UNITS/ML SQ SCH (21:28)
[2019-06-22 05:04] LABS: Basophils % 0.5 % (0-1.3); Hematocrit 26.3 % (39.6-49.0); Lymphocytes % 15.9 % (15.3-44.8); MPV 6.9 fL (7.6-11.3); RBC Red Blood Cell Count 3.32 M/uL (4.33-5.43)
[2019-06-22 05:08] LABS: Albumin 1.9 g/dL (3.4-5.0); Bilirubin Total 0.4 mg/dL (0.2-1.0); Magnesium 1.5 mg/dL (1.8-2.4); Potassium 4.7 mmol/L (3.5-5.1); Protein, Total 6.4 g/dL (6.4-8.2)
[2019-06-22] MEDS: METOPROLOL XL 50 MG TAB PO SCH (06:24)
[2019-06-22] MEDS: PANTOPRAZOLE 40MG TABLET PO SCH (06:24)
[2019-06-22] MEDS: AZITHROMYCIN IV 500 MG in NA CHLORIDE 0.9% 250 ML IVPB SCH (06:24)
[2019-06-22] MEDS: INSULIN -REGULAR HUMAN 50 UNIT/0.5 ML ML SQ SCH ×3 (08:23→16:19)
[2019-06-22] MEDS: LORATADINE 10 MG TAB PO SCH (08:24)
[2019-06-22] MEDS: GUAIFENESIN 600 MG SA TAB PO SCH (08:24)
[2019-06-22] MEDS: ASPIRIN EC 81 MG TAB PO SCH (08:24)
[2019-06-22] MEDS: CEFTRIAXONE/SWI 1gm 1 GM/10 ML SYR IV SCH (08:24)
[2019-06-22] MEDS: COLCHICINE 0.6 MG TAB PO SCH (08:24)
[2019-06-22] MEDS: ENOXAPARIN 40 MG/0.4 ML SQ SCH (08:24)
[2019-06-22] MEDS: MEDIHONEY 44 ML TOPICAL TUBE TOP SCH (08:25)
[2019-06-22] MEDS: LOSARTAN POTASSIUM 50 MG TABLET PO SCH (08:25)
[2019-06-22] MEDS ORDERED: Magnesium Sulfate 2gm IVPB 2 G/50 ML BAG IV ONE (09:00)
--- NOTE | 2019-06-22 11:13 | RAD REPORT ---
EXAM DESCRIPTION: CT Chest, Abdomen and Pelvis Without Intravenous Contrast CLINICAL HISTORY: The patient is 74 years years old, Male; CONGESTION TECHNIQUE: Axial computed tomography images of the chest, abdomen and pelvis without intravenous con trast. Sagittal and coronal reformatted images were created and reviewed. This CT exam was perfor med using one or more of the following dose reduction techniques: automated exposure control, adjus tment of the mA and/or kV according to patient size, and/or use of iterative reconstruction technique . COMPARISON: No relevant prior studies available. FINDINGS: CHEST: LUNGS: There is a calcified granuloma in the left upper lobe and another in the right lower lobe c onsistent with antecedent granulomatous disease. Other tiny nodules less than 3 mm noted bilaterally. Fleischner Society Guidelines (MacMahon, et al. Radiology 2017; 284(1):228-43) suggest the followi ng. For low-risk patients, no follow-up is necessary. For high-risk patients (smoking history or other known risk factors) an optional chest CT at 12 months could be performed. Minimal groundglass opacification noted in the right lower lobe which may reflect mild edema. Infecti on not excluded. PLEURAL SPACE: There are bilateral pleural effusions with a dependent interpleural distance of up to 3.9 cm on the right and up to 0.7 cm on the left with associated adjacent compressive atelectasis. Small amount of loculated fluid noted in the intersection of the right major and minor fissures as well as elsewhere in the major fissure. There is extensive pleural calcification bilaterally suggesting prior asbestos exposure. HEART: Unremarkable. No cardiomegaly. No significant pericardial effusion. MEDIASTINUM: There is mild mural thickening in the distal esophagus. This may reflect nondistentio n and/or esophagitis. ABDOMEN: LIVER: The liver is enlarged, measuring 22.6 longitudinally in the right lobe. There are no focal defects in the liver. GALLBLADDER AND BILE DUCTS: The gallbladder is absent status post cholecystectomy with surgical cl ips in the gallbladder fossa. PANCREAS: There is mild diffuse atrophy of the pancreas without evidence of mass or acute pancreat itis. SPLEEN: The spleen is borderline enlarged, measuring 12.2 cm longitudinally. ADRENALS: There is focal thickening in the left adrenal gland, measuring 2.5 cm x 1.2 cm x 1.6 cm ACR White Paper guidelines (Keri, et al. JACR 2010; 7(10):754-73) suggest follow-up abdominal CT or MR in 12 months. Alternatively, if there is a history of malignancy, consider further evaluatio n with PET, unenhanced abdominal CT or MR. KIDNEYS AND URETERS: Unremarkable. There are no acute findings. There is no evidence of solid re nal mass, nonobstructive intrarenal calculi or pelvocaliectases/ureterectases. STOMACH AND BOWEL: There are scattered colonic diverticula with hyperdensities in the lumen of the ascending colon, presumably radiopaque ingested material. Dilated loops of small bowel containing air-fluid levels noted measuring up to 3.1 cm without areas o f abrupt transition and may reflect a mild focal ileus.. There is no evidence of intestinal obstructi on. The stomach contains hyperdense dependent material, probably ingested tablets or other radiopaque sub stance. PELVIS: APPENDIX: No findings to suggest acute appendicitis. BLADDER: Unremarkable, allowing for the degree of distention. There is no evidence of cystolithias is or bladder mass. REPRODUCTIVE: Unremarkable as visualized. CHEST, ABDOMEN and PELVIS: INTRAPERITONEAL SPACE: Unremarkable. No free air or free fluid. No significant focal fluid collect ion. BONES/JOINTS: There are no acute fractures. There are diffuse enthesopathic changes on the initial unremarkable as the consistent with diffuse id iopathic skeletal hyperostosis (DISH). There is multilevel degenerative disc disease with loss of disc height in the lumbar spine as well as mild erosive changes at L2-3 and L3-4. Absence of the spinous processes at L3 and L4 noted from pres umably postoperative. Grade 1 anterolisthesis of L4 relative to L5 is likely on the basis of facet arthropathy. Right total hip arthroplasty appears well seated and intact visualized. SOFT TISSUES: Unremarkable. VASCULATURE: There is three-vessel coronary atherosclerosis. LYMPH NODES: No evidence of hilar, mediastinal, supraclavicular or axillary adenopathy. IMPRESSION: 1. There is three-vessel coronary atherosclerosis. 2. Mild hepatomegaly. 3. Extensive pleural calcification suggests previous asbestos exposure. 4. Remainder of findings as described above. Electronically signed by: Amira Zavala MD 06/20/2019 6:32 AM CDT Due to temporary technical issues with the PACS/Fluency reporting system, reports are being signed by the in house radiologist as a courtesy to ensure prompt reporting. The interpreting radiologist is f ully responsible for the content of the report.
[2019-06-22 12:57] VITALS: O2SAT 96
--- NOTE | 2019-06-22 15:47 | PN ---
Date of Progress Note: 06/22/2019 Subjective: Patient seen and examined. Chart reviewed and case discussed with RN. Patient states alysia verdugo worked with Physical Therapy, was able to stand up, move [id number]. He does have some drainage from the hip incision site, serosanguineous. Medications: List reviewed. Physical Examination: Vital Signs: Temperature 98, heart rate 89, blood pressure 102/43, respirations 20, O2 95% on room a ir. General: Awake, alert, oriented x3. Elderly male, obese. CV: S1 and S2. Peripheral pulses present. Respiratory: Moving air well better. Minimal rhonchi. No wheezing or stridor. Gastrointestinal: Abdomen is soft, nontender, nondistended. Positive bowel sounds. No guarding or rigidity. Extremities: No clubbing, cyanosis, or edema. Neurologic: Nonfocal. Laboratory Data: Sodium 141, potassium 4.7, chloride 111, CO2 of 25, BUN 24, creatinine 0.96, glucos e 174, calcium 9.1, magnesium 1.5, albumin 1.9. WBC 12.7, H and H 8.7 and 26.3, platelets 412, neutr ophils 62%. Hep panel pending. Wound culture from the hip is pending. Influenza screen is negative . Group A strep rapid screen is also negative. Sputum culture shows normal marcos. Wound from the l eft heel showing skin marcos. Urine culture, mixed marcos. Blood cultures, no growth to date. Hip x- ray from 06/21/2019, personally reviewed, shows right total hip prosthesis in place. No suspicious f or unexpected finding. Assessment: A 74-year-old male with: 1.Bilateral pneumonia. We will continue with IV antibiotics. WBC count trending up, however, afebr ile. Continue with incentive spirometer and out of bed to the chair. 2.Recent right hip replacement. We will continue with PT. Continue deep venous thrombosis prophyla xis with Lovenox. 3.Hypomagnesemia. We will replace and monitor. 4.Renal insufficiency due to dehydration. Patient is on IV fluids. Kidney functions normalized. W e will discontinue fluids. 5.Severe protein-calorie malnutrition. Albumin is less than 2. We will continue with supplementati on. 6.Anemia of chronic disease and iron deficiency. Monitor H and H. 7.Essential hypertension, stable. 8.Elevated liver function, likely due to fatty liver disease. 9.Benign prostatic hypertrophy, stable. 10.Obesity, BMI 38.6. 11.Previous suspect asbestos exposure. 12.Left adrenal gland focal thickening on CT. Recommend followup abdominal CT or MR in 12 months. 13.Degenerative disk disease. 14.Right hip incision site drainage. Patient had recent surgery at the [facility]. There is some yellow to clear drainage from the incision site, which is minimally open. No surrounding erythema. Does not appear to be infected. We will culture drainage. Hip x-ray does not show any abscess or any unusual findings. We will continue to monitor. Plan: Referral for inpatient rehab. /NAINA Voice ID: [id number] Report ID: [id number]
[2019-06-22 16:19] VITALS: BP 145/64; TEMP 97.8
[2019-06-22] MEDS ORDERED: JUVEN PACKET PO SCH (21:00)
--- NOTE | 2019-06-23 00:29 | DS ---
Date of Discharge: 06/22/2019 Admitting Diagnoses: 1. Bilateral pneumonia. 2. Shortness of breath. 3. Recent right hip replacement at the [facility]. 4. Anemia of chronic disease. 5. Diabetes mellitus type 2, insulin requiring with hypoglycemia. 6. Renal insufficiency due to dehydration. 7. Essential hypertension. 8. Elevated liver function secondary to fatty liver disease. 9. Benign prostatic hypertrophy. 10. Obesity. Discharge Diagnoses: 1. Bilateral pneumonia, improving. 2. Recent right hip replacement, on Lovenox for deep venous thrombosis prophylaxis. 3. Anemia of chronic disease and iron deficiency, stable. 4. Diabetes mellitus type 2, insulin requiring with hypoglycemia, stable. 5. Renal insufficiency due to dehydration, improving. 6. Hypomagnesemia, replaced. 7. Severe protein-calorie malnutrition, albumin less than 2. 8. Essential hypertension, stable. 9. Elevated liver function, likely due to fatty liver disease. 10. Benign prostatic hypertrophy. 11. Obesity, body mass index 38.6. Hospital Course: Patient is a 74-year-old male, comes in with altered mental status and pneumonia, has multiple chronic medical conditions and complicated history, comes from nursing home facility after hip surgery at the [facility] 3 weeks ago. Patient was found to have pneumonia, pleural effusion. Patient had a Doppler study done which was negative for DVT. Patient was started on IV antibiotics. Cultures were obtained, which did not show any growth. His influenza screen and group A strep screen were negative. Patient did have a slight opening on his right hip incision site with very minimal drainage. No signs of infection that was cultured as well. Overall, the patient did well. His white blood cell count was trending down, not appear to be septic. He did have some hypoglycemia, however, that improved. He did have severe protein- calorie malnutrition with albumin of 1.9, started on supplements. Patient was working with physical therapy. Hip x-ray did not show any acute changes. He was then referred to rehab for further physical therapy and was accepted. He was then discharged in a stable condition. Activity: As per rehab. Medications: As per medication reconciliation list. Finish off course of antibiotics for pneumonia. Repeat chest x-ray in 2 to 3 days. Follow up with primary care physician in 2 to 3 days and follow up with orthopedic surgeon at the [facility] as scheduled. Return to ER for worsening condition. Diet: Diabetic. Physical Examination: For physical exam findings, please see progress note dictated on the day of discharge. BECKY Voice ID: [id number] Report ID: [id number] [email or web address]
[2019-06-25 04:31] LABS: HBsAG Nonreactive (Nonreactive)
== END 2019-06-22 18:00 | DRG 193 ==
LOC: ER 02:36 → ERHOLD 05:12 → 4TH 07:48
PROVIDERS: ADMIT Family Medicine; ATTEND Family Medicine
DX: J18.9 Pneumonia, unspecified organism (principal); E43 Unspecified severe protein-calorie malnutrition; J91.8 Pleural effusion in other conditions classified elsewhere; D50.9 Iron deficiency anemia, unspecified; E11.649 Type 2 diabetes mellitus with hypoglycemia without coma; N28.9 Disorder of kidney and ureter, unspecified; E86.0 Dehydration; E83.42 Hypomagnesemia; Z68.38 Body mass index [BMI] 38.0-38.9, adult; E66.9 Obesity, unspecified; I10 Essential (primary) hypertension; R79.89 Other specified abnormal findings of blood chemistry; N40.0 Benign prostatic hyperplasia without lower urinary tract symptoms; Z96.641 Presence of right artificial hip joint
CPT/HCPCS: 36415; 71045; 71250; 74176; 80048; 80053; 80074; 80076; 81003; 82607; 82728; 82962; 83036; 83540; 83605; 83690; 83735; 83880; 84145; 84466; 84484; 85025; 85610; 86850; 86900; 86901; 87040; 87070; 87077; 87081; 87086; 87088; 87186; 87205; 87804; 93005; 93970; 94640; 96361; 96365; 96367; 96368; 96372; 97110; 97116; 97161; 97530; 99251; 99285; J0456; J0696; J1650; J2543; J3475; J7030

== ENCOUNTER 2019-06-22 14:01 | Inpatient (IN) | payer OTHER ==
--- NOTE | 2019-06-22 17:04 | R.PREADM ---
SCREENING DATE AND TIME 06/22/2019 15:20 (CDT) ANTICIPATED REHAB ADMISSION DATE 06/24/2019 REFERRING FACILITY [facility] REFERRAL DATE AND TIME 06/22/2019 15:20 (CDT) REFERRAL ROOM# 423 ACUTE ADMIT DATE 06/20/2019 Previous Rehabilitation(s): No. 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 Magdi De Jesus M.D. MR# [id number] NAME NABIL MENDEZ ADDRESS [address] [place] [address] [place]IP [id number] DATE OF 1945 AGE 74 SSN# [id number] GENDER male MARITAL STATUS RACE white ADMIT FROM 02 - [facility] PRE-HOSPITAL LIVING SETTING 01 - Home (private home/apt. board/care, assisted living, half-way, transitional living) HOME TYPE AND DETAILS Type of home: single family house # of levels in the residence: 1 # of steps within the residence: 0 # of steps to enter the residence: 0 PRE-HOSPITAL LIVING WITH Family/Relatives FAMILY SUPPORT Yes PRIMARY FAMILY CONTACT NAME LISSY MENDEZ PRIMARY FAMILY CONTACT PHONE PRIMARY FAMILY CONTACT RELATIONSHIP PHONE PRIMARY FAMILY CONTACT ON ADM.? no IS PRIMARY FAMILY CONTACT AUTH. REP.? no 1ST EMERGENCY CONTACT LISSY MENDEZ 1ST CONTACT PHONE 1ST CONTACT RELATIONSHIP PHONE 1ST CONTACT ON ADM. no IS 1ST CONTACT AUTH. REP.? no PHONE 2ND CONTACT ON ADM.? no PATIENT EMPLOYMENT STATUS Retired (for age) PATIENT EMPLOYER No Employer PAYOR INFORMATION: 1ST PAYOR NAME MEDICARE 1ST PAYOR PHONE [phone] 1ST PAYOR INJURY/ILLNESS DUE TO ACCIDENT? No ANOTHER LIBERTARIAN RESPONSIBLE? No PRIMARY REHAB/ACUTE DIAGNOSIS: RIGHT HIP FRACTURE ONSET DATE 06/20/2019 REHAB IMPAIRMENT CATEGORY (BOOKER): 07 Fracture of LE (FracLE) MEETS 60% rule AFFECTED EXTREMITIES: RLE PRIMARY DIAGNOSIS-RELATED SURGERIES: Right Total Hip Replacement COMORBID REHAB/ACUTE DIAGNOSES: - Tier 3 Type 2 diabetes mellitus with diabetic neuropathy, unspecified (E11.40) - N/A Hypertension Hyperlipidemia BPH Osteoarthritis Obesity INTERVENTIONS: - Hypertension Fluid management Medications VS - Osteoarthritis Energy conservation Exercise Joint Protection Medications Pain management RISK FOR COMPLICATIONS: - Hypertension CVA Hypotension NC TIA - Osteoarthritis Falls SUMMARY OF ACUTE HOSPITALIZATION: Pt. is a 74 yo Right-handed white male. On 06/20/2019 he was admitted to [facility] with diagnosis RIGHT HIP FRACTURE. His impairment category is Orthopaedic Disorders 08 - Unilateral Hip Fracture (08.11). Pre-morbidly, Pt. was independent/mod-I in Self-Care, Sphincter Control, Transfers Control, Locomotio n, Communication, and Social Cognition; and he had good Sphincter Control. Currently, he has deficits of Self-Care, Transfers Control, Locomotion, Endurance, Balance, and Safet y Awareness. Pt. is now referred to [facility] for acute in-patient rehabilitation in order to maximize patient's functional independence in activities of daily living, strength, ROM, and mobi lity. Patient has realistic goal of being discharged at assistance level 6-[place] to reside at Home with Fam delmy/Relatives. Nabil Mendez is a 74 year old male that lives in a single mt house with his . Patient is independent with ADLs and self care. Early this month patient fell and had a right hip fracture and had Right Total Hip Replacement and was discharged to SNF but was not able to complete his therapy. On 06/20/2019, patient was brought to emergency room due to increasing cough and shortness of breath was admitted to [facility] and treated. He is now medically stable but in need of 24-hour nursing, doctor supervision and oversite participate in 3hours of therapy a day/15 hours per week and receive care with an intensive interdisciplinary approach. PAST MEDICAL HISTORY BPH Hyperlipidemia Hypertension Obesity Osteoarthritis Type 2 diabetes mellitus with diabetic neuropathy, unspecified (E11.40) PAST SURGICAL HISTORY: APPENDECTOMY Gall Bladder surgery Right hip replacement MEDICATION ALLERGIES: No Known Drug Allergies (NKDA) ENVIRONMENTAL ALLERGIES: None Known - Substance Allergies None Known - Other Allergies None Known CODE STATUS: Full code WEIGHT/HEIGHT/BMI: WEIGHT 277 lbs HEIGHT 5' 11" BMI 38.6 DIET: - Diet Type Regular - Diet - Solid Texture Regular - Diet - Liquid Texture Regular - Tube Feed N/A REVIEW OF SYSTEMS: - Gen Alert and awake Lying in bed No apparent distress Oriented to: person, time, and place - Vital Signs Temperature: 98 F SBP/DBP: 136/65 Pulse: 84 Resp: 20 Vital signs stable, afebrile - CVS RRR VITAL SIGNS Temperature: 98 F SBP/DBP: 136/65 Pulse: 84 Resp: 20 Vital signs stable, afebrile MEDICATIONS/TREATMENT: Other- See attached MAR (Medication Administration Record). See attached MAR (Medication Administration Record) Nabil Mendez.pdf. CURRENT SPHINCTER CONTROL: Pre-hospital bladder status: continent # of bladder accidents in the last 7 days prior to screenin Pre-hospital bowel status: continent # of bowel accidents in the last 7 days prior to screenin Last Bowel Movement Date: 06/22/2019 DETAILED CURRENT FUNCTIONAL STATUS: - Bladder accident frequency: Ind - No accidents in the past 7 days - Bowel accident frequency: Ind - No accidents in the past 7 days - Walking score based on distance walked: 1(<=50ft) - Wheelchair score based on distance traveled: 0(N/A) FUNCTIONAL STATUS: - Self-Care A. Eating Ind sup B. Grooming Ind sup C. Bathing Ind modA D. Dressing - Upper Ind modA E. Dressing - Lower Ind maxA F. Toileting Ind maxA - Sphincter Control G: Bladder control Ind Ind H: Bowel control Ind Ind - Transfers Control I. Bed/Chair/Wheelchair Ind maxA J. Toilet Ind maxA K. Tub/Shower Ind ADNO - Locomotion L. Walk/Wheelchair (C) Ind maxA L. Walk/Wheelchair (W) Ind maxA M. Stairs Ind ADNO - Communication N. Comprehension (B) Ind Ind O. Expression (B) Ind Ind - Social Cognition P. Social Interaction Ind Ind Q. Problem Solving Ind Ind R. Memory Ind Ind - Endurance Poor - Balance Fair - Safety Awareness Fair CURRENT FUNC. DEFICITS: Self-Care, Transfers Control, Locomotion, Endurance, Balance, and Safety Awareness THERAPY NOTES FROM ACUTE CARE: Attached. SPECIAL NEEDS: - Safety Concerns Skin breakdown precautions needed due to skin breakdown risk PRECAUTIONS: - Posterior Hip Precaution No adduction across midline No external rotation No hip flexion >90 degrees No internal rotation No wheel chair propulsion - Weight Bearing Precaution WBAT right LE PATIENT NEEDS ACTIVE AND ONGOING THERAPEUTIC INTERVENTION OF MULTIPLE THERAPY DISCIPLINES, INCLUDING: - Dietary and Nutrition Adequate Nutrition. Nutritional Education. Nutritional Supplements. PATIENT NEEDS CLOSE MEDICAL SUPERVISION BY A REHABILITATION PHYSICIAN FOR: Bowel and Bladder Management Coordination of Treatment Team Diabetes Management Medical and Co-Morbidity Management Post-Op Complications PATIENT REQUIRES 24X7 REHAB NURSING FOR MEDICAL AND FUNCTIONAL MGT. OF THE FOLLOWING DEFICITS: ADL's Ambulation Bowel and Bladder Management Communication Disease Management Medication Management Patient/Family Education Providing Safe Environment Transfers Pain Management DVT Management PATIENT REQUIRES INTENSIVE, COORDINATED INTERDISCIPLINARY APPROACH TO REHAB: Arranging Home Equipment/Services Discharge Planning Family Intervention/Training Application Operations Engineer/Case Management PATIENT REHAB POTENTIAL: Melody MENDEZ is able and expected to receive 3 hours of individualized therapy daily on at least 5 of juan ry 7 days Melody MENDEZ's prognosis for significant practical improvement within a reasonable period of time appears Good Expected level of measurable improvement will be of a practical value to Melody MENDEZ's functional capaci ty or adaptations to impairments Has a viable Discharge Plan Medically appropriate; condition is sufficiently stable to participate in intensive rehab program DISCHARGE PLAN: - Estimated Length of Stay (days) 14. - Consensus on plan Discharge plan has been discussed with primary caregiver. Patient/Family is in agreement with the janee n. Primary caregiver is in agreement with the plan. - Patient/Family Goals Return home with assistance. - Planned Living Setting Upon Discharge Home, to live with Family/Relatives. Transitional Living. RECOMMENDED CARE LEVEL: IRF RECOMMENDATION DETAILS: Recommended Admission to Comprehensive Rehabilitation Program to Increase Functional Kennedy SCREENER'S COMPLETENESS CONFIRMATION: - Screening Confirmation The patient data collection on this preadmission screening form is finished PHYSICIANS REVIEW AND ADMISSION DETERMINATION Admit - Based on my review of the Pre-Admission Screening results, in my medical judgment and experie nce, I concur with the findings and recommend admission to [facility], as this patient requires an IRF level of care. SIGNATURE PANEL: Clinical Liaison - [electronically] signed by Sarita Andujar on 06/22/2019 at 16:25 (CDT) Physician Reviewer - [electronically] signed by Dr. Magdi De Jesus M.D. on 06/22/2019 at 17:05 (CDT )
[2019-06-22] MEDS ORDERED: D50W 25 GM/50 ML SYRINGE IV PRN (18:36)
[2019-06-22] MEDS ORDERED: GLUCAGON 1 MG/VIAL IM PRN (18:36)
[2019-06-22] MEDS ORDERED: ACETAMINOPHEN 500 MG TAB PO PRN (18:45)
[2019-06-22] MEDS ORDERED: MAGNES/ALUMIN/SIMET 30ML UCUP PO PRN (18:45)
[2019-06-22] MEDS ORDERED: MAGNESIUM HYDROXIDE 8% 30 ML PO PRN (18:45)
[2019-06-22] MEDS ORDERED: ALBUTEROL 2.5 MG/3 ML NEB SOL NEB PRN (18:45)
[2019-06-22] MEDS ORDERED: IPRATROPIUM BROM 0.5MG/2.5ML NEB PRN (18:45)
[2019-06-22] MEDS: CEFUROXIME 250 MG TAB PO SCH (19:41)
[2019-06-22] MEDS: METOPROLOL TAR 50 MG TAB PO SCH (19:42)
[2019-06-22] MEDS: TERAZOSIN HCL 5 MG CAP PO SCH (20:27)
[2019-06-22 21:27] VITALS: BMI 28.5
[2019-06-22] MEDS: INSULIN GLARGINE 100 UNITS/ML SQ SCH (21:36)
[2019-06-22] MEDS: INSULIN -REGULAR HUMAN 50 UNIT/0.5 ML ML SQ SCH (21:37)
[2019-06-22] MEDS ORDERED: BENZONATATE 100 MG CAP PO PRN (22:27)
[2019-06-22] MEDS ORDERED: ONDANSETRON 4 MG (ODT) TAB PO PRN (22:27)
--- NOTE | 2019-06-23 00:09 | FAST ---
SHIFT START DATE/TIME: 06/22/2019 19:00 (CDT) SHIFT END DATE/TIME: 06/23/2019 07:00 (CDT) NAME NABIL MARTI DATE OF : 1945 DATE OF ADMISSION: 06/22/2019 18:11 (CDT) PHONE: AGE: 74 SSN# [id number] GENDER: Male ENCOUNTER PHYSICIAN: Dr. Magdi De Jesus M.D. ADMISSION DIAGNOSIS: - Orthopaedic Disorders 08 - Unilateral Hip Fracture (08.11) RIGHT HIP FRACTURE. EATING: Activity did not occur on this shift EATING - SCORE: 0-UNK GROOMING: Activity did not occur on this shift GROOMING - SCORE: 0-UNK BATHING: Activity did not occur on this shift BATHING - SCORE: 0-UNK DRESSING - UPPER BODY: Patient is not dressing in public clothing ARTICLES SCORE Total number of steps: 0 DRESSING - UPPER BODY - SCORE: 0-UNK DRESSING - LOWER BODY: Patient is not dressing in public clothing ARTICLES SCORE Total number of steps: 0 DRESSING - LOWER BODY - SCORE: 0-UNK TOILETING: TOILETING - STEP 1: Does the patient require the assistance of a person or device, or need extra time with toileting? Yes . TOILETING - STEP 2: Does the patient require the assistance of a helper? Yes. TOILETING - STEP 3: How much assistance does the patient require from the helper? Hands-on assistance from the helper TOILETING - STEP 4: Of the 3 tasks: 1) Adjusting clothing prior to use, 2) Cleansing of perineal area, 3) Adjusting clot stefano after use; How many tasks does the patient perform WITHOUT assistance of the helper? No tasks; h elper performs all three tasks TOILETING - SCORE: 1-DEP BLADDER MANAGEMENT: Boaz removes incontinent device (Depends, pull ups, etc.); cleans the patient after accident / inco ntinent episode; and, applies new incontinent device. BLADDER MANAGEMENT - SCORE: 1-DEP BOWEL MANAGEMENT: Activity did not occur on this shift BOWEL MANAGEMENT - SCORE: 7-IND TRANSFERS: BED, CHAIR, WHEELCHAIR: Patient requires more than one helper and/or the use of a mechanical lift is utilized TRANSFERS: BED, CHAIR, WHEELCHAIR - SCORE: 1-DEP TRANSFERS: TOILET: Activity did not occur on this shift TRANSFERS: TOILET - SCORE: 0-UNK TRANSFERS: SHOWER: Activity did not occur on this shift TRANSFERS: SHOWER - SCORE: 0-UNK TRANSFERS: TUB: Activity did not occur on this shift TRANSFERS: TUB - SCORE: 0-UNK LOCOMOTION: WALK: Activity did not occur on this shift LOCOMOTION: WALK - SCORE: 0-UNK LOCOMOTION: WHEELCHAIR: Activity did not occur on this shift LOCOMOTION: WHEELCHAIR - SCORE: 0-UNK COMPREHENSION: COMPREHENSION: TYPE: Both COMPREHENSION - STEP 1: Does the patient require help from a person or device, or need extra time to understand complex and a bstract ideas (such as current events, finances, discharge planning, medical issues, relationships, e tc)? Yes. COMPREHENSION - STEP 2: Does the patient require help to understand questions or statements about basic needs or ideas (such as hunger, thirst, sleep, safety, daily schedule, room location, or discomfort) half or more of the t merle? No. COMPREHENSION - STEP 3: How often does the patient need help to understand directions and conversation about basic needs? 10% - 24% of the time COMPREHENSION - SCORE: 4-MIN EXPRESSION EXPRESSION: TYPE: Both EXPRESSION - STEP 1: Does the patient require help from a person or device, or need extra time expressing complex and abst ract ideas (such as current events, finances, discharge planning, medical issues, relationships, etc) ? No. EXPRESSION - STEP 2: Does the patient need extra time, require an assistive device (such as augmentive communication syste m or a communication board), OR does s/he have mild difficulty expressing complex and abstract ideas (including mild dysarthria or mild word-find problems)? No. EXPRESSION - SCORE: 7-IND SOCIAL INTERACTION: SOCIAL INTERACTION - STEP 1: Does the patient require a helper to interact with others in social and therapeutic situations? No. SOCIAL INTERACTION - STEP 2: Does the patient need extra time in social situations, OR does s/he interact with staff, other patien ts, and family members ONLY in structured environments, OR does s/he require medication for social in teraction? Yes, patient needs extra time SOCIAL INTERACTION - SCORE: 6-SUYAPA PROBLEM SOLVING: PROBLEM SOLVING - STEP 1: Does the patient need help from a person or device, or need extra time to solve complex problems such as managing a checking account or confronting interpersonal problems? Yes. PROBLEM SOLVING - STEP 2: Does the patient solve basic routine problems half or more of the time? Yes. PROBLEM SOLVING - STEP 3: How often does the patient need help to solve basic routine problems? 25%-49% of the time PROBLEM SOLVING - SCORE: 3-MOD MEMORY: MEMORY - STEP 1: Does the patient need help from a person or device, or need extra time to remember frequently encount ered people, daily routines, and executing requests? No. MEMORY - STEP 2: Does the patient have slight difficulty recognizing frequently encountered people, daily routines, or executing requests without the need for repetition or using self-initiated or environmental cues to remember? Yes. MEMORY - SCORE: 6-SUYAPA SIGNATURE PANEL: The following modified sections: Eating - Score, Grooming - Score, Dressing - Upper Body - Score, Karl ssing - Lower Body - Score, Toileting - Score, Bladder Management - Score, Bowel Management - Score, Transfers: Bed, Chair, Wheelchair - Score, Transfers: Toilet - Score, Transfers: Shower - Score, Miguel sfers: Tub - Score, Locomotion: Walk - Score, Locomotion: Wheelchair - Score, Comprehension - Score, Expression - Score, Social Interaction - Score, Problem Solving - Score, Memory - Score were [electro nically] signed by Hazel Miller CNA on SatJun 23 2019 00:08:49 GMT-0500 (Central Daylight Time)
[2019-06-23 06:15] LABS: Absolute Lymphocytes (CBC) 2.2 K/uL (0.7-4.9); Basophils % 0.8 % (0-1.3); Hematocrit 26.3 % (39.6-49.0); Lymphocytes % 17.6 % (15.3-44.8); MPV 6.7 fL (7.6-11.3); RBC Red Blood Cell Count 3.31 M/uL (4.33-5.43)
[2019-06-23 06:35] LABS: Albumin 1.9 g/dL (3.4-5.0); Prealbumin 10.7 mg/dL (20-40)
[2019-06-23 06:37] LABS: Magnesium 1.4 mg/dL (1.8-2.4)
[2019-06-23] MEDS: PANTOPRAZOLE 40MG TABLET PO SCH (06:45)
[2019-06-23] MEDS: INSULIN -REGULAR HUMAN 50 UNIT/0.5 ML ML SQ SCH ×4 (07:30→20:44)
[2019-06-23] MEDS: CEFUROXIME 250 MG TAB PO SCH ×2 (07:41→19:15)
[2019-06-23] MEDS: LOSARTAN POTASSIUM 50 MG TABLET PO SCH (07:41)
[2019-06-23] MEDS: GUAIFENESIN 600 MG SA TAB PO SCH ×2 (07:41→19:14)
[2019-06-23] MEDS: COLCHICINE 0.6 MG TAB PO SCH (07:41)
[2019-06-23] MEDS: ASPIRIN EC 81 MG TAB PO SCH (07:41)
[2019-06-23] MEDS: METOPROLOL TAR 50 MG TAB PO SCH ×2 (07:41→19:16)
[2019-06-23] MEDS: AMLODIPINE 5 MG TAB PO SCH (07:41)
[2019-06-23] MEDS: hydroCHLOROthiazide 12.5 MG CAP PO SCH (07:42)
[2019-06-23] MEDS: LORATADINE 10 MG TAB PO SCH (07:42)
[2019-06-23] MEDS: AZITHROMYCIN 250 MG TAB PO SCH (07:42)
[2019-06-23] MEDS: MAGNESIUM OXIDE 400 MG TAB PO SCH ×2 (07:42→19:15)
[2019-06-23] MEDS: ENOXAPARIN 40 MG/0.4 ML SQ SCH (07:43)
[2019-06-23] MEDS: glipiZIDE 5 MG TAB PO SCH ×2 (07:43→17:15)
[2019-06-23] MEDS: INSULIN GLARGINE 100 UNITS/ML SQ SCH ×2 (08:15→20:44)
[2019-06-23] MEDS: MEDIHONEY 44 ML TOPICAL TUBE TOP SCH (11:04)
[2019-06-23] MEDS: TRAMADOL HCL 50 MG TAB PO PRN (11:11)
[2019-06-23] MEDS ORDERED: NYSTATIN PWDR 100000 UNIT/GM TOP PRN (13:25)
--- NOTE | 2019-06-23 15:18 | FAST ---
SHIFT START DATE/TIME: 06/23/2019 07:00 (CDT) SHIFT END DATE/TIME: 06/23/2019 19:00 (CDT) NAME NABIL MARTI DATE OF : 1945 DATE OF ADMISSION: 06/22/2019 18:11 (CDT) PHONE: AGE: 74 SSN# [id number] GENDER: Male ENCOUNTER PHYSICIAN: Dr. Magdi De Jesus M.D. ADMISSION DIAGNOSIS: - Orthopaedic Disorders 08 - Unilateral Hip Fracture (08.11) RIGHT HIP FRACTURE. EATING: EATING - STEP 1: Does the patient require the assistance of a person or device, or need extra time when eating? Yes. EATING - STEP 2: Does the patient require the assistance of a helper? No, patient only requires an assistive device, O R s/he takes more than reasonable time to eat, OR there is a safety concern, OR s/he requires modifie d food consistency EATING - SCORE: 6-SUYAPA GROOMING: Activity did not occur on this shift GROOMING - SCORE: 0-UNK BATHING: Activity did not occur on this shift BATHING - SCORE: 0-UNK DRESSING - UPPER BODY: Activity did not occur on this shift ARTICLES SCORE Total number of steps: 0 DRESSING - UPPER BODY - SCORE: 0-UNK DRESSING - LOWER BODY: Activity did not occur on this shift ARTICLES SCORE Total number of steps: 0 DRESSING - LOWER BODY - SCORE: 0-UNK TOILETING: TOILETING - STEP 1: Does the patient require the assistance of a person or device, or need extra time with toileting? Yes . TOILETING - STEP 2: Does the patient require the assistance of a helper? Yes. TOILETING - STEP 3: How much assistance does the patient require from the helper? Hands-on assistance from the helper TOILETING - STEP 4: Of the 3 tasks: 1) Adjusting clothing prior to use, 2) Cleansing of perineal area, 3) Adjusting clot stefano after use; How many tasks does the patient perform WITHOUT assistance of the helper? One task TOILETING - SCORE: 2-MAX BLADDER MANAGEMENT: BLADDER MANAGEMENT - STEP 1: Does the patient control the bladder completely and intentionally without equipment or devices or med ications, and is always continent? No. BLADDER MANAGEMENT - STEP 2: Does the patient require the assistance of a helper? No, patient requires and independently uses an a ssistive device, such as a urinal, bedpan, bedside commode, catheter, absorbent pad, or collecting de vice BLADDER MANAGEMENT - SCORE: 6-SUYAPA BOWEL MANAGEMENT: Activity did not occur on this shift BOWEL MANAGEMENT - SCORE: 7-IND TRANSFERS: BED, CHAIR, WHEELCHAIR: TRANSFERS: BED, CHAIR, WHEELCHAIR - STEP 1: Does the patient require assistance of a person or device, or need extra time with bed, chair, or whe elchair transfers? Yes. TRANSFERS: BED, CHAIR, WHEELCHAIR - STEP 2: Does the patient require the assistance of a helper? Yes. TRANSFERS: BED, CHAIR, WHEELCHAIR - STEP 3: How much assistance does the patient require from the helper? Lifting of the patient TRANSFERS: BED, CHAIR, WHEELCHAIR - STEP 4: Does the helper lift the patient ONLY up? ONLY down? Up AND Down? ONLY up. TRANSFERS: BED, CHAIR, WHEELCHAIR - SCORE: 3-MOD TRANSFERS: TOILET: TRANSFERS: TOILET - STEP 1: Does the patient require the assistance of a person or device, or need extra time with toilet transfe rs? Yes. TRANSFERS: TOILET - STEP 2: Does the patient require the assistance of a helper? Yes. TRANSFERS: TOILET - STEP 3: How much assistance does the patient require from the helper? Patient performs half or more of the tr ansferring tasks TRANSFERS: TOILET - STEP 4: Does the patient need only incidental help such as contact guard or steadying during toilet transfer? No. Patient needs more than incidental help TRANSFERS: TOILET - SCORE: 3-MOD TRANSFERS: SHOWER: Activity did not occur on this shift TRANSFERS: SHOWER - SCORE: 0-UNK TRANSFERS: TUB: Activity did not occur on this shift TRANSFERS: TUB - SCORE: 0-UNK LOCOMOTION: WALK: Activity did not occur on this shift LOCOMOTION: WALK - SCORE: 0-UNK LOCOMOTION: WHEELCHAIR: Activity did not occur on this shift LOCOMOTION: WHEELCHAIR - SCORE: 0-UNK COMPREHENSION: COMPREHENSION - SCORE: 0-UNK EXPRESSION EXPRESSION - SCORE: 0-UNK SOCIAL INTERACTION: SOCIAL INTERACTION - SCORE: 0-UNK PROBLEM SOLVING: PROBLEM SOLVING - SCORE: 0-UNK MEMORY: MEMORY - SCORE: 0-UNK SIGNATURE PANEL: The following modified sections: Eating - Score, Grooming - Score, Bathing - Score, Dressing - Upper Body - Score, Dressing - Lower Body - Score, Toileting - Score, Bladder Management - Score, Bowel Man agement - Score, Transfers: Bed, Chair, Wheelchair - Score, Transfers: Toilet - Score, Transfers: Rosalina wer - Score, Transfers: Tub - Score, Locomotion: Walk - Score, Locomotion: Wheelchair - Score, Compre hension - Score, Expression - Score, Social Interaction - Score, Problem Solving - Score, Memory - Sc ore were [electronically] signed by Scott Alonzo on SatJun 23 2019 15:17:38 GMT-0500 (Central Daylight Time)
--- NOTE | 2019-06-23 16:21 | FAST ---
ENCOUNTER DATE AND TIME: 06/23/2019 08:00 (CDT) NAME NABIL MARTI DATE OF : 1945 DATE OF ADMISSION: 06/22/2019 18:11 (CDT) PHONE: AGE: 74 SSN# [id number] GENDER: Male ENCOUNTER PHYSICIAN: Dr. Magdi De Jesus M.D. ADMISSION DIAGNOSIS: - Orthopaedic Disorders 08 - Unilateral Hip Fracture (08.11) RIGHT HIP FRACTURE. EATING: Activity did not occur on this shift EATING - SCORE: 0-UNK GROOMING: Activity did not occur on this shift GROOMING - SCORE: 0-UNK BATHING: Activity did not occur on this shift BATHING - SCORE: 0-UNK DRESSING - UPPER BODY: Activity did not occur on this shift Patient is not dressing in public clothing ARTICLES SCORE Total number of steps: 0 DRESSING - UPPER BODY - SCORE: 0-UNK DRESSING - LOWER BODY: Activity did not occur on this shift Patient is not dressing in public clothing ARTICLES SCORE Total number of steps: 0 DRESSING - LOWER BODY - SCORE: 0-UNK TOILETING: Activity did not occur on this shift TOILETING - SCORE: 0-UNK BLADDER MANAGEMENT: Activity did not occur on this shift BLADDER MANAGEMENT - SCORE: 7-IND BOWEL MANAGEMENT: Activity did not occur on this shift BOWEL MANAGEMENT - SCORE: 7-IND TRANSFERS: BED, CHAIR, WHEELCHAIR: TRANSFERS: BED, CHAIR, WHEELCHAIR - STEP 1: Does the patient require assistance of a person or device, or need extra time with bed, chair, or whe elchair transfers? Yes. TRANSFERS: BED, CHAIR, WHEELCHAIR - STEP 2: Does the patient require the assistance of a helper? Yes. TRANSFERS: BED, CHAIR, WHEELCHAIR - STEP 3: How much assistance does the patient require from the helper? Lifting of the patient TRANSFERS: BED, CHAIR, WHEELCHAIR - STEP 4: Does the helper lift the patient ONLY up? ONLY down? Up AND Down? Up AND Down. TRANSFERS: BED, CHAIR, WHEELCHAIR - SCORE: 2-MAX TRANSFERS: TOILET: Activity did not occur on this shift TRANSFERS: TOILET - SCORE: 0-UNK TRANSFERS: SHOWER: Activity did not occur on this shift TRANSFERS: SHOWER - SCORE: 0-UNK TRANSFERS: TUB: Activity did not occur on this shift TRANSFERS: TUB - SCORE: 0-UNK LOCOMOTION: WALK: Patient walks less than 50 feet LOCOMOTION: WALK - SCORE: 1-DEP LOCOMOTION: WHEELCHAIR: LOCOMOTION: WHEELCHAIR - STEP 1: Does the patient need help to go 150 feet in a wheelchair? Yes. LOCOMOTION: WHEELCHAIR - STEP 2: How much assistance does the patient need from the helper? Patient goes less than 150 feet - but more than 50 feet - with the assistance of only one helper LOCOMOTION: WHEELCHAIR - SCORE: 2-MAX LOCOMOTION: STAIRS: Activity did not occur on this shift LOCOMOTION: STAIRS - SCORE: 0-UNK COMPREHENSION: COMPREHENSION - SCORE: 0-UNK EXPRESSION EXPRESSION - SCORE: 0-UNK SOCIAL INTERACTION: SOCIAL INTERACTION - SCORE: 0-UNK PROBLEM SOLVING: PROBLEM SOLVING - SCORE: 0-UNK MEMORY: MEMORY - SCORE: 0-UNK SIGNATURE PANEL: The following modified sections: Transfers: Bed, Chair, Wheelchair - Score, Locomotion: Walk - Score, Locomotion: Wheelchair - Score, Locomotion: Stairs - Score, Transfers: Toilet - Score were [electron [email or web address]] signed by David Carlin PT on SatJun 23 2019 16:20:56 T-0500 (Central Daylight Time)
--- NOTE | 2019-06-23 19:05 | R.HP ---
FACILITY: [facility] ENCOUNTER DATE AND TIME: 06/23/2019 19:01 (CDT) MR#: [id number] NAME NABIL MENDEZ ADDRESS: [address] [place] [address] CITY: [place]IP [address] PHONE: DATE OF : 1945 AGE: 74 SSN# [id number] GENDER: Male DEXTERITY Right-handed MARITAL STATUS RACE White PRE-HOSPITAL LIVING SETTING 01 - Home (private home/apt. board/care, assisted living, detention, transitional living) PRE-HOSPITAL LIVING WITH Family/Relatives ENCOUNTER PHYSICIAN: Dr. Magdi De Jesus M.D. REFERRING DOCTOR: tristin Valdez DATE OF ADMISSION: 06/22/2019 18:11 (CDT) REFERRING FACILITY [facility] HOME TYPE AND DETAILS: Type of home: single family house # of levels in the residence: 1 # of steps within the residence: 0 # of steps to enter the residence: 0 ADMISSION DIAGNOSIS: RIGHT HIP FRACTURE ONSET DATE: 06/20/2019 PRIMARY DIAGNOSIS-RELATED SURGERIES: Right Total Hip Replacement SECONDARY/COMORBID DIAGNOSES (TIERED): - Tier 3 Type 2 diabetes mellitus with diabetic neuropathy, unspecified (E11.40) - N/A Hypertension Hyperlipidemia BPH Osteoarthritis Obesity HISTORY OF PRESENT ILLNESS (HPI): Pt. is a 74 yo Right-handed white male. On 06/20/2019 he was admitted to [facility] with diagnosis RIGHT HIP FRACTURE. His impairment category is Orthopaedic Disorders 08 - Unilateral Hip Fracture (08.11). Pre-morbidly, Pt. was independent/mod-I in Self-Care, Sphincter Control, Transfers Control, Locomotio n, Communication, and Social Cognition; and he had good Sphincter Control. Currently, he has deficits of Self-Care, Transfers Control, Locomotion, Endurance, Balance, and Safet y Awareness. Pt. is now referred to [facility] for acute in-patient rehabilitation in order to maximize patient's functional independence in activities of daily living, strength, ROM, and mobi lity. Patient has realistic goal of being discharged at assistance level 6-[place] to reside at Home with Fam delmy/Relatives. Nabil Mendez is a 74 year old male that lives in a single mt house with his . Patient is independent with ADLs and self care. Early this month patient fell and had a right hip fracture and had Right Total Hip Replacement and was discharged to SNF but was not able to complete his therapy. On 06/20/2019, patient was brought to emergency room due to increasing cough and shortness of breath was admitted to [facility] and treated. He is now medically stable but in need of 24-hour nursing, doctor supervision and oversite participate in 3hours of therapy a day/15 hours per week and receive care with an intensive interdisciplinary approach. MEDICATION ALLERGIES: No Known Drug Allergies (NKDA) ENVIRONMENTAL ALLERGIES: None Known - Substance Allergies None Known - Other Allergies None Known PAST MEDICAL HISTORY: BPH Hyperlipidemia Hypertension Obesity Osteoarthritis Type 2 diabetes mellitus with diabetic neuropathy, unspecified (E11.40) PAST SURGICAL HISTORY: APPENDECTOMY Gall Bladder surgery Right hip replacement FAMILY HISTORY: Family history is not contributory. SOCIAL HISTORY: - Home Living Family/Relatives REVIEW OF SYSTEMS: - Gen No Chills Fatigue No Fever - Eyes No Double Vision No itchiness - ENMT No Difficulty Swallowing - CVS No Chest Discomfort No Chest Pain Fatigue No Weight Gain - Resp No Cough No Shortness of Breath - GI Continent No Abdominal Pain No Constipation No Diarrhea - Continent No Kidney Pain No Painful Urination No Urinary Urgency - MSK Joint Pain Muscle Cramps Stiffness - Skin No Itching No Rash No Suspicious Lesions - Neuro No Coordination Difficulty No Difficulty with Concentration No Memory Loss No Seizures No Weakness - Psych No Anxiety No Depression No HIV Exposure No Persistent Infections No Seasonal Allergies - Endo No Cold/Heat Intolerance No Excessive Hunger No Excessive Thirst No Excessive Urination PHYSICAL EXAM - Gen Alert and awake Lying in bed No apparent distress Oriented to: person, time, and place - Skin Right hip incision intact No abnormalities - Eyes No abnormalities - ENMT No abnormalities - Neck No abnormalities - CVS RRR - Chest No abnormalities - Resp Clear to auscultation - Abd Soft - GI nondistended Deferred - No abnormalities - Ext Mild bilateral lower extremity edema. - MSK 4+/5 weakness in both lower extremities. - Neuro No focal deficits - Psych No abnormalities VITAL SIGNS Temperature: 98 F SBP/DBP: 136/65 Pulse: 84 Resp: 20 NURSING: - Shower allowing shower - Lab Results blood Sugar Check ACHS - Skin care per protocol PRECAUTIONS: - Posterior Hip Precaution No adduction across midline No external rotation No hip flexion >90 degrees No internal rotation No wheel chair propulsion - Weight Bearing Precaution WBAT right LE ACTIVITIES OOB only with supervision FUNCTIONAL STATUS: - Self-Care A. Eating Ind sup B. Grooming Ind sup C. Bathing Ind modA D. Dressing - Upper Ind modA E. Dressing - Lower Ind maxA F. Toileting Ind maxA - Sphincter Control G: Bladder control Ind Ind H: Bowel control Ind Ind - Transfers Control I. Bed/Chair/Wheelchair Ind maxA J. Toilet Ind maxA K. Tub/Shower Ind ADNO - Locomotion L. Walk/Wheelchair (C) Ind maxA L. Walk/Wheelchair (W) Ind maxA M. Stairs Ind ADNO - Communication N. Comprehension (B) Ind Ind O. Expression (B) Ind Ind - Social Cognition P. Social Interaction Ind Ind Q. Problem Solving Ind Ind R. Memory Ind Ind - Endurance Poor - Balance Fair - Safety Awareness Fair CURRENT FUNC. DEFICITS: Self-Care, Transfers Control, Locomotion, Endurance, Balance, and Safety Awareness MEDICATIONS: - Other See attached MAR (Medication Administration Record) See attached MAR (Medication Administration Record) Nabil [email or web address].pdf ASSESSMENT: Pt. is a 74 yo Right-handed white male.On 06/20/2019 he was admitted to [facility] with diagnosis RIGHT HIP FRACTURE.His impairment category is Orthopaedic Disorders 08 - Unilater al Hip Fracture (08.11).Pre-morbidly, Pt. was independent/mod-I in Self-Care, Sphincter Control, Migule sfers Control, Locomotion, Communication, and Social Cognition; and he had good Sphincter Control.Cur rently, he has deficits of Self-Care, Transfers Control, Locomotion, Endurance, Balance, and Safety A wareness.Pt. is now referred to [facility] for acute in-patient rehabilitation in order to maximize patient's functional independence in activities of daily living, strength, ROM, and mobility.- Rehab Goal Patient has realistic goal of being discharged at assistance level 6-[place] to reside at Home with Fam delmy/Relatives. Nabil Mendez is a 74 year old male that lives in a single mt house with his . Patient is independent with ADLs and self care. Early this month patient fell and had a right hip fracture and had Right Total Hip Replacement and was discharged to SNF but was not able to complete his therapy. On 06/20/2019, patient was brought to emergency room due to increasing cough and shortness of breath was admitted to [facility] and treated. He is now medically stable but in need of 24-hour nursing, doctor supervision and oversite participate in 3hours of therapy a day/15 hours per week and receive care with an intensive interdisciplinary approach.REHAB PLAN: - Physical Therapy Decreased range of motion - to improve, our physical therapists will perform initial evaluation of pt 's status upon admission and devise an individualized program for increasing patient's Range of Motio n. Gait dysfunction - to improve, our physical therapists will perform initial evaluation of pt's status upon admission and devise an individualized program for Gait Training, and Wheel Chair mobility Inability to transfer - to improve, our physical therapists will perform initial evaluation of pt's s tatus upon admission and devise an individualized program for Bed mobility Need for home safety evaluation - to improve, our physical therapists will perform initial evaluation of pt's status upon admission and devise an individualized program for Home Evaluation Need in caregiver upon discharge - to improve, our physical therapists will perform initial evaluatio n of pt's status upon admission and devise an individualized program for Caregiver Training New precaution - to improve, our physical therapists will perform initial evaluation of pt's status u chano admission and devise an individualized program for Patient precaution education Edema - to improve, our physical therapists will perform initial evaluation of pt's status upon admi ssion and devise an individualized program for Elevation Training, and Lymphedema Therapy Poor balance - to improve, our physical therapists will perform initial evaluation of pt's status upo n admission and devise an individualized program for Balance Training Poor endurance - to improve, our physical therapists will perform initial evaluation of pt's status u chano admission and devise an individualized program for Endurance Training Weakness - to improve, our physical therapists will perform initial evaluation of pt's status upon ad mission and devise an individualized program for Aquatic Therapy, Neuromuscular Reeducation, and Stre ngthening Achieving independence - to improve, our physical therapists will perform initial evaluation of pt's status upon admission and devise an individualized program for Community Reintegration Activities - Occupational Therapy ADL deficits - to improve, our occupation therapists will perform initial evaluation of pt's status u chano admission and devise an individualized program for Bathing, Bed mobility, Community Reintegration , Cooking, Dressing, Eating, Fine Motor Skills, Grooming, Homemaking, Kitchen Mobility, Laundry, Angela ent Education, Safety Awareness, Splinting - Positioning, Transfers(Toilet, Tub, Shower), and Wheel C hair Management Need for care taker - to improve, our occupation therapists will perform initial evaluation of pt's s tatus upon admission and devise an individualized program for Caregiver Training Weakness - to improve, our occupation therapists will perform initial evaluation of pt's status upon admission and devise an individualized program for Aquatic Therapy, Balance, Endurance, UE ROM, and U E strengthening MEDICAL PLAN: - Anterior Hip Precaution No abduction No active extension No adduction across midline No external rotation No hip flexion >90 degrees No internal rotation - Diet - Liquid Texture Start Regular - Tube Feed Start N/A - Diet Type Start Regular - Posterior Hip Precaution No adduction across midline No external rotation No hip flexion >90 degrees No internal rotation No wheel chair propulsion - Lab Results blood Sugar Check ACHS - Weight Bearing Precaution WBAT right LE - Skin care per protocol - Other See attached MAR (Medication Administration Record) See attached MAR (Medication Administration Record) Nabil Mendez.pdf - Diet - Solid Texture Regular - Shower shower DISCHARGE PLAN: - Estimated Length of Stay (days) 14. - Consensus on plan Discharge plan has been discussed with primary caregiver. Patient/Family is in agreement with the janee n. Primary caregiver is in agreement with the plan. - Patient/Family Goals Return home with assistance. - Planned Living Setting Upon Discharge Home, to live with Family/Relatives. Transitional Living. SIGNATURE PANEL: (CDT)
--- NOTE | 2019-06-23 19:06 | PAPE ---
PATIENT: [facility] MR# [id number] REFERRING DOCTOR tristin Valdez EVALUATION DATE AND TIME 06/23/2019 19:06 (CDT) NAME NABIL MARTI DATE OF 1945 AGE 74 PHONE SSN# [id number] GENDER male EVALUATING PHYSICIAN Dr. Magdi De Jesus M.D. ADMISSION DIAGNOSIS: RIGHT HIP FRACTURE ONSET DATE 06/20/2019 SECONDARY/COMORBID DIAGNOSES TIERED: - Tier 3 Type 2 diabetes mellitus with diabetic neuropathy, unspecified (E11.40) - N/A Hypertension Hyperlipidemia BPH Osteoarthritis Obesity POST-ADMISSION FUNCTIONAL/MEDICAL STATUS: - Bladder Same accident frequency: Ind - No accidents in the past 7 days - Bowel Same accident frequency: Ind - No accidents in the past 7 days - Walking Same score based on distance walked: 1(<=50ft) - Wheelchair Same score based on distance traveled: 0(N/A) STATUS CHANGE EVALUATION: No change in Functional or Medical Status is identified compared with Pre-Admission screening. PATIENT NEEDS CLOSE MEDICAL SUPERVISION BY A REHABILITATION PHYSICIAN FOR: Bowel and Bladder Management Coordination of Treatment Team Diabetes Management Medical and Co-Morbidity Management Post-Op Complications PATIENT REQUIRES 24X7 REHAB NURSING FOR MEDICAL AND FUNCTIONAL MGT. OF THE FOLLOWING DEFICITS: ADL's Ambulation Bowel and Bladder Management Communication Disease Management Medication Management Patient/Family Education Providing Safe Environment Transfers Pain Management DVT Management PATIENT REQUIRES INTENSIVE, COORDINATED INTERDISCIPLINARY APPROACH TO REHAB: Arranging Home Equipment/Services Discharge Planning Family Intervention/Training [employer] Heavy Service/Case Management LIST OF IDENTIFIED AND POTENTIAL PROBLEMS: Alteration in leisure activities Bladder, Incontinence Blood Pressure, Hypertension/hypotension Issues Bowel, Incontinence Diabetes, Hyperglycemia/hypoglycemia Issues Infection, Actual or Potential Mobility Impaired Pain, Alteration in Comfort Self Care Deficit Skin Integrity, Actual or Potential Urinary Tract Infection (UTI), Actual or Potential RISK FOR COMPLICATIONS - Hypertension CVA. Hypotension. IA. TIA. - Osteoarthritis Falls. INTERVENTIONS - Hypertension - Osteoarthritis Energy conservation. Exercise. Joint Protection. Medications. Pain management. PATIENT COULD BE AT RISK FOR COMPLICATIONS FROM ADVERSE MEDICAL CONDITIONS DUE TO HIS/HER COMORBIDITI ES AND THE RIGORS OF THE INTENSIVE REHABILLITATION PROGRAM. METHODS OR INTERVENTIONS TO AVOID COMPLIC ATIONS INCLUDE: - Infection Clinical staff to assess and manage the signs and symptoms of infection including fever, redness, war mth, etc. - Urinary Tract Infection - Falls Patient will be evaluated for Fall Precautions and will be placed on Fall Precautions as indicated pe r protocol. - Skin Breakdown Nursing will assess skin daily using assessment tool and will place on Skin Breakdown Precautions as indicated per protocol. - Pain Clinical staff may employ non-medication methods such as massage, distraction, decrease stimulus, etc . as needed. Clinical staff will assess patient's pain level every shift per protocol to assess and e nsure pain management effectiveness. Medications will be given and the pain level re-assessed. PRELIMINARY PLAN OF CARE: - Physical Therapy Patient needs Physical Therapy for a daily minimum of 1.5 hours at least 5 out of 7 days, to improve: Mobility, Strengthening, Transfers, Stretching, ROM, Endurance, Ability to manage stairs, Gait, and Balance. - Rehabilitation Nursing Patient requires 24x7 Rehabilitation Nursing for: Pain Issues, Identifying and preventing risk factor s, Monitoring and reporting current medical conditions, Assisting with ambulation and transfer, Jason ting with all ADL-s, Teaching patients about disease process and medications, Family teaching, Provid ing safe environment, Bowel and Bladder Issues, Skin Integrity, and Medication Management. Patient needs [employer] Heavy Service and/or Case Management for: Discharge Planning, Arranging Home Equipmen t or Services, and Family Interventions. - Dietary and Nutrition Services Patient needs Dietary and Nutrition Services for: Adequate Nutrition, Nutritional Supplements, and Nu tritional Education. - Occupational Therapy Patient needs Occupational Therapy for a daily minimum of 1.5 hours at least 5 out of 7 days, to impr ove Activities of Daily Living, including: Eating, Grooming, Bathing, Dressing, Toileting, Toilet Tra nsfers, Community Reintegration, Higher functional activities, Adaptive Equipment, Splinting, Househo ld Tasks, and Other activities as determined. POTENTIAL FUNCTIONAL GOALS FOR PATIENT TO ACHIEVE BY DISCHARGE: - Safety Precaution Patient will remain free from falls or injury at time of discharge. - Bed Mobility Patient will perform bed mobility at 4-Sara level of assistance. - Transfers Patient will complete transfers from bed to chair at 4-Sara level of assistance. - Mobility Patient will ambulate 150 ft with 4-Sara level of assistance with RW. PATIENT REHAB POTENTIAL Melody MARTI is able and expected to receive 3 hours of individualized therapy daily on at least 5 of juan ry 7 days Melody MARTI's prognosis for significant practical improvement within a reasonable period of time appears Good Expected level of measurable improvement will be of a practical value to eMlody MARTI's functional capaci ty or adaptations to impairments Has a viable Discharge Plan Medically appropriate; condition is sufficiently stable to participate in intensive rehab program DISCHARGE PLAN: - Estimated Length of Stay (days) 14. - Consensus on plan Discharge plan has been discussed with primary caregiver. Patient/Family is in agreement with the janee n. Primary caregiver is in agreement with the plan. - Patient/Family Goals Return home with assistance. - Planned Living Setting Upon Discharge Home, to live with Family/Relatives. Transitional Living. CONCLUSION ON REHABILITATION NECESSITY: I have evaluated patient's pre-admission functional status and, comparing it to the patient's post-ad mission functional status now, I conclude that the pre-admission assessment was accurate. Patient's c ondition on admission supports the medical necessity of admission to [facility]. It is safe to proceed with patient's therapy program. SIGNATURE PANEL: (CDT)
[2019-06-23] MEDS: TERAZOSIN HCL 5 MG CAP PO SCH (20:43)
[2019-06-24] MEDS: PANTOPRAZOLE 40MG TABLET PO SCH (06:50)
[2019-06-24] MEDS: INSULIN -REGULAR HUMAN 50 UNIT/0.5 ML ML SQ SCH ×4 (07:30→19:21)
[2019-06-24] MEDS: ENOXAPARIN 40 MG/0.4 ML SQ SCH (07:57)
[2019-06-24] MEDS: GUAIFENESIN 600 MG SA TAB PO SCH ×2 (08:00→19:15)
[2019-06-24] MEDS: MEDIHONEY 44 ML TOPICAL TUBE TOP SCH (08:00)
[2019-06-24] MEDS: AZITHROMYCIN 250 MG TAB PO SCH (08:06)
[2019-06-24] MEDS: LIDOCAINE 4% PATCH TOP SCH (08:06)
[2019-06-24] MEDS: MAGNESIUM OXIDE 400 MG TAB PO SCH ×2 (08:08→19:22)
[2019-06-24] MEDS: METOPROLOL TAR 50 MG TAB PO SCH ×2 (08:08→19:19)
[2019-06-24] MEDS: LOSARTAN POTASSIUM 50 MG TABLET PO SCH (08:08)
[2019-06-24] MEDS: CEFUROXIME 250 MG TAB PO SCH ×2 (08:09→19:10)
[2019-06-24] MEDS: hydroCHLOROthiazide 12.5 MG CAP PO SCH (08:09)
[2019-06-24] MEDS: COLCHICINE 0.6 MG TAB PO SCH (08:10)
[2019-06-24] MEDS: glipiZIDE 5 MG TAB PO SCH ×2 (08:10→17:09)
[2019-06-24] MEDS: ASPIRIN EC 81 MG TAB PO SCH (08:10)
[2019-06-24] MEDS: AMLODIPINE 5 MG TAB PO SCH (08:10)
[2019-06-24] MEDS: LORATADINE 10 MG TAB PO SCH (08:10)
[2019-06-24] MEDS: INSULIN GLARGINE 100 UNITS/ML SQ SCH (08:15)
[2019-06-24] MEDS: TRAMADOL HCL 50 MG TAB PO PRN ×2 (08:25→19:11)
--- NOTE | 2019-06-24 14:27 | FAST ---
SHIFT START DATE/TIME: 06/24/2019 07:00 (CDT) SHIFT END DATE/TIME: 06/24/2019 19:00 (CDT) NAME NABIL MARTI DATE OF : 1945 DATE OF ADMISSION: 06/22/2019 18:11 (CDT) PHONE: AGE: 74 N# [id number] GENDER: Male ENCOUNTER PHYSICIAN: Dr. Magdi De Jesus M.D. ADMISSION DIAGNOSIS: - Orthopaedic Disorders 08 - Unilateral Hip Fracture (08.11) RIGHT HIP FRACTURE. EATING: EATING - STEP 1: Does the patient require the assistance of a person or device, or need extra time when eating? Yes. EATING - STEP 2: Does the patient require the assistance of a helper? Yes. EATING - STEP 3: Does the patient perform half or more of the eating tasks? Yes. EATING - STEP 4: Does the patient need only supervision, cuing, coaxing OR help to apply an orthosis OR help to cut fo od, open containers, pour liquids, or butter bread? Yes. EATING - SCORE: 5-SUP GROOMING: Activity did not occur on this shift GROOMING - SCORE: 0-UNK BATHING: Activity did not occur on this shift BATHING - SCORE: 0-UNK DRESSING - UPPER BODY: Activity did not occur on this shift ARTICLES SCORE Total number of steps: 0 DRESSING - UPPER BODY - SCORE: 0-UNK DRESSING - LOWER BODY: Activity did not occur on this shift ARTICLES SCORE Total number of steps: 0 DRESSING - LOWER BODY - SCORE: 0-UNK TOILETING: TOILETING - STEP 1: Does the patient require the assistance of a person or device, or need extra time with toileting? Yes . TOILETING - STEP 2: Does the patient require the assistance of a helper? Yes. TOILETING - STEP 3: How much assistance does the patient require from the helper? Hands-on assistance from the helper TOILETING - STEP 4: Of the 3 tasks: 1) Adjusting clothing prior to use, 2) Cleansing of perineal area, 3) Adjusting clot stefano after use; How many tasks does the patient perform WITHOUT assistance of the helper? One task TOILETING - SCORE: 2-MAX BLADDER MANAGEMENT: BLADDER MANAGEMENT - STEP 1: Does the patient control the bladder completely and intentionally without equipment or devices or med ications, and is always continent? No. BLADDER MANAGEMENT - STEP 2: Does the patient require the assistance of a helper? No, patient requires and independently uses an a ssistive device, such as a urinal, bedpan, bedside commode, catheter, absorbent pad, or collecting de vice BLADDER MANAGEMENT - SCORE: 6-SUYAPA BOWEL MANAGEMENT: Activity did not occur on this shift BOWEL MANAGEMENT - SCORE: 7-IND TRANSFERS: BED, CHAIR, WHEELCHAIR: TRANSFERS: BED, CHAIR, WHEELCHAIR - STEP 1: Does the patient require assistance of a person or device, or need extra time with bed, chair, or whe elchair transfers? Yes. TRANSFERS: BED, CHAIR, WHEELCHAIR - STEP 2: Does the patient require the assistance of a helper? Yes. TRANSFERS: BED, CHAIR, WHEELCHAIR - STEP 3: How much assistance does the patient require from the helper? Lifting of the patient TRANSFERS: BED, CHAIR, WHEELCHAIR - STEP 4: Does the helper lift the patient ONLY up? ONLY down? Up AND Down? ONLY up. TRANSFERS: BED, CHAIR, WHEELCHAIR - SCORE: 3-MOD TRANSFERS: TOILET: TRANSFERS: TOILET - STEP 1: Does the patient require the assistance of a person or device, or need extra time with toilet transfe rs? Yes. TRANSFERS: TOILET - STEP 2: Does the patient require the assistance of a helper? Yes. TRANSFERS: TOILET - STEP 3: How much assistance does the patient require from the helper? Patient performs less than half of the transferring tasks TRANSFERS: TOILET - STEP 4: Does the patient require total assistance for the toilet transfer such as the helper doing basically all the lifting? No. TRANSFERS: TOILET - SCORE: 2-MAX TRANSFERS: SHOWER: Activity did not occur on this shift TRANSFERS: SHOWER - SCORE: 0-UNK TRANSFERS: TUB: Activity did not occur on this shift TRANSFERS: TUB - SCORE: 0-UNK LOCOMOTION: WALK: Activity did not occur on this shift LOCOMOTION: WALK - SCORE: 0-UNK LOCOMOTION: WHEELCHAIR: Activity did not occur on this shift LOCOMOTION: WHEELCHAIR - SCORE: 0-UNK COMPREHENSION: COMPREHENSION - SCORE: 0-UNK EXPRESSION EXPRESSION - SCORE: 0-UNK SOCIAL INTERACTION: SOCIAL INTERACTION - SCORE: 0-UNK PROBLEM SOLVING: PROBLEM SOLVING - SCORE: 0-UNK MEMORY: MEMORY - SCORE: 0-UNK SIGNATURE PANEL: The following modified sections: Eating - Score, Grooming - Score, Bathing - Score, Dressing - Upper Body - Score, Dressing - Lower Body - Score, Toileting - Score, Bladder Management - Score, Bowel Man agement - Score, Transfers: Bed, Chair, Wheelchair - Score, Transfers: Bed, Chair, Wheelchair - Score , Transfers: Toilet - Score, Transfers: Toilet - Score, Transfers: Toilet - Score, Transfers: Shower - Score, Transfers: Tub - Score, Locomotion: Walk - Score, Locomotion: Wheelchair - Score, Comprehens ion - Score, Expression - Score, Social Interaction - Score, Problem Solving - Score, Memory - Score were [electronically] signed by Scott Alonzo on SatJun 24 2019 14:26:19 GMT-0500 ([facility] Day[facility] e)
--- NOTE | 2019-06-24 18:42 | R.PN ---
ENCOUNTER DATE AND TIME: 06/24/2019 18:38 (CDT) NAME NABIL MARTI DATE OF : 1945 DATE OF ADMISSION: 06/22/2019 18:11 (CDT) RIGHT HIP FRACTURECHIEF COMPLAINT: Right hip fracture SUBJECTIVE: Pt denied any depression. Pt denied any Shortness of Breath. He has less bilateral knee pain after 5% lidoderm patches were placed. He is making fair overall prog ress with physical and occupational therapy. VITAL SIGNS Temperature: 97.5 F SBP/DBP: 142/72 Pulse: 84 Resp: 16 MEDICATION ALLERGIES: No Known Drug Allergies (NKDA) ENVIRONMENTAL ALLERGIES: None Known - Substance Allergies None Known - Other Allergies None Known NURSING: - Shower allowing shower - Lab Results blood Sugar Check ACHS - Skin care per protocol PRECAUTIONS: - Posterior Hip Precaution No adduction across midline No external rotation No hip flexion >90 degrees No internal rotation No wheel chair propulsion - Weight Bearing Precaution WBAT right LE ACTIVITIES OOB only with supervision THERAPIES: - Dietary and Nutrition Adequate Nutrition. Nutritional Education. Nutritional Supplements. PHYSICAL EXAM - Gen Alert and awake Lying in bed No apparent distress Oriented to: person, time, and place - Skin Right hip incision intact No abnormalities - Eyes No abnormalities - ENMT No abnormalities - Neck No abnormalities - CVS RRR - Chest No abnormalities - Resp Clear to auscultation - Abd Soft - GI nondistended Deferred - No abnormalities - Ext Mild bilateral lower extremity edema. - MSK 4+/5 weakness in both lower extremities. - Neuro No focal deficits - Psych No abnormalities ASSESSMENT: Pt. is a 74 yo Right-handed white male.On 06/20/2019 he was admitted to [facility] with diagnosis RIGHT HIP FRACTURE.His impairment category is Orthopaedic Disorders 08 - Unilater al Hip Fracture (08.11).Pre-morbidly, Pt. was independent/mod-I in Self-Care, Sphincter Control, Miguel sfers Control, Locomotion, Communication, and Social Cognition; and he had good Sphincter Control.Cur rently, he has deficits of Self-Care, Transfers Control, Locomotion, Endurance, Balance, and Safety A wareness.Pt. is now referred to [facility] for acute in-patient rehabilitation in order to maximize patient's functional independence in activities of daily living, strength, ROM, and mobility.- Rehab Goal Patient has realistic goal of being discharged at assistance level 6-[place] to reside at Home with Fam delmy/Relatives. MDM/PLAN: - Physical Therapy Decreased range of motion - to improve, our physical therapists will perform initial evaluation of p t's status upon admission and devise an individualized program for increasing patient's Range of Patricio on. Gait dysfunction - to improve, our physical therapists will perform initial evaluation of pt's statu s upon admission and devise an individualized program for Gait Training, and Wheel Chair mobility Inability to transfer - to improve, our physical therapists will perform initial evaluation of pt's status upon admission and devise an individualized program for Bed mobility Need for home safety evaluation - to improve, our physical therapists will perform initial evaluatio n of pt's status upon admission and devise an individualized program for Home Evaluation Need in caregiver upon discharge - to improve, our physical therapists will perform initial evaluati on of pt's status upon admission and devise an individualized program for Caregiver Training Edema - to improve, our physical therapists will perform initial evaluation of pt's status upon admis alfredo and devise an individualized program for Elevation Training, and Lymphedema Therapy New precaution - to improve, our physical therapists will perform initial evaluation of pt's status upon admission and devise an individualized program for Patient precaution education Poor balance - to improve, our physical therapists will perform initial evaluation of pt's status up on admission and devise an individualized program for Balance Training Poor endurance - to improve, our physical therapists will perform initial evaluation of pt's status upon admission and devise an individualized program for Endurance Training Weakness - to improve, our physical therapists will perform initial evaluation of pt's status upon a dmission and devise an individualized program for Aquatic Therapy, Neuromuscular Reeducation, and Str engthening Achieving independence - to improve, our physical therapists will perform initial evaluation of pt's status upon admission and devise an individualized program for Community Reintegration Activities - Occupational Therapy ADL deficits - to improve, our occupation therapists will perform initial evaluation of pt's status upon admission and devise an individualized program for Bathing, Bed mobility, Community Reintegratio n, Cooking, Dressing, Eating, Fine Motor Skills, Grooming, Homemaking, Kitchen Mobility, Laundry, Pat ient Education, Safety Awareness, Splinting - Positioning, Transfers(Toilet, Tub, Shower), and Wheel Chair Management Need for point of care specialist - to improve, our occupation therapists will perform initial evaluation of pt's status upon admission and devise an individualized program for Caregiver Training Weakness - to improve, our occupation therapists will perform initial evaluation of pt's status upon admission and devise an individualized program for Aquatic Therapy, Balance, Endurance, UE ROM, and UE strengthening - Other See attached MAR (Medication Administration Record) See attached MAR (Medication Administration Record) Nabil Marti.pdf See attached MAR (Medication Administration Record) Nabil Marti.pdf - Anterior Hip Precaution No abduction No active extension No adduction across midline No external rotation No hip flexion >90 degrees No internal rotation - Diet - Liquid Texture Continue Regular - Tube Feed Continue N/A - Diet Type Continue Regular - Posterior Hip Precaution No adduction across midline No external rotation No hip flexion >90 degrees No internal rotation No wheel chair propulsion - Lab Results blood Sugar Check ACHS - Weight Bearing Precaution WBAT right LE - Skin care per protocol - Diet - Solid Texture Continue Regular - Shower allowing shower FUNCTIONAL STATUS: UPDATED AT WEEKLY TEAM CONFERENCE - Bladder Same accident frequency: 7-Ind - No accidents in the past 7 days - Bowel Same accident frequency: 7-Ind - No accidents in the past 7 days - Walking Same score based on distance walked: 1(<=50ft) - Wheelchair Same score based on distance traveled: 0(N/A) FUNCTIONAL STATUS: - Self-Care A. Eating sup B. Grooming sup C. Bathing modA D. Dressing - Upper modA E. Dressing - Lower maxA F. Toileting maxA - Sphincter Control G: Bladder control Ind H: Bowel control Ind - Transfers Control I. Bed/Chair/Wheelchair maxA J. Toilet maxA K. Tub/Shower ADNO - Locomotion L. Walk/Wheelchair (C) maxA L. Walk/Wheelchair (W) maxA M. Stairs ADNO - Communication N. Comprehension (B) Ind O. Expression (B) Ind - Social Cognition P. Social Interaction Ind Q. Problem Solving Ind R. Memory Ind - Endurance Poor - Balance Fair - Safety Awareness Fair CURRENT FUNC. DEFICITS: Self-Care, Transfers Control, Locomotion, Endurance, Balance, and Safety Awareness SIGNATURE PANEL: (CDT)
[2019-06-24] MEDS: JUVEN PACKET PO SCH (19:10)
[2019-06-24] MEDS: TERAZOSIN HCL 5 MG CAP PO SCH (19:20)
[2019-06-24] MEDS ORDERED: INSULIN GLARGINE 100 UNITS/ML SQ SCH (21:00)
[2019-06-25] MEDS: PANTOPRAZOLE 40MG TABLET PO SCH (06:15)
[2019-06-25] MEDS: ENOXAPARIN 40 MG/0.4 ML SQ SCH (07:27)
[2019-06-25 07:30] LABS: Basophils % 0.8 % (0-1.3); Hematocrit 27.3 % (39.6-49.0); Lymphocytes % 15.5 % (15.3-44.8); MPV 6.5 fL (7.6-11.3); RBC Red Blood Cell Count 3.42 M/uL (4.33-5.43)
[2019-06-25] MEDS: INSULIN -REGULAR HUMAN 50 UNIT/0.5 ML ML SQ SCH ×4 (07:30→20:24)
[2019-06-25] MEDS: MAGNESIUM OXIDE 400 MG TAB PO SCH ×2 (08:00→20:11)
[2019-06-25] MEDS ORDERED: INSULIN GLARGINE 100 UNITS/ML SQ SCH (08:00)
[2019-06-25] MEDS: LOSARTAN POTASSIUM 50 MG TABLET PO SCH (08:00)
[2019-06-25] MEDS: MEDIHONEY 44 ML TOPICAL TUBE TOP SCH (08:00)
[2019-06-25] MEDS: AMLODIPINE 5 MG TAB PO SCH (08:00)
[2019-06-25 08:01] LABS: Albumin 3.2 g/dL (3.4-5.0); Magnesium 2.1 mg/dL (1.8-2.4); Potassium 4.2 mmol/L (3.5-5.1); Prealbumin 12.2 mg/dL (20-40)
[2019-06-25] MEDS: CEFUROXIME 250 MG TAB PO SCH ×2 (08:12→20:23)
[2019-06-25] MEDS: LIDOCAINE 4% PATCH TOP SCH (08:12)
[2019-06-25] MEDS: GUAIFENESIN 600 MG SA TAB PO SCH ×2 (08:12→20:24)
[2019-06-25] MEDS: COLCHICINE 0.6 MG TAB PO SCH (08:13)
[2019-06-25] MEDS: hydroCHLOROthiazide 12.5 MG CAP PO SCH (08:13)
[2019-06-25] MEDS: METOPROLOL TAR 50 MG TAB PO SCH ×2 (08:13→20:00)
[2019-06-25] MEDS: glipiZIDE 5 MG TAB PO SCH ×2 (08:13→16:46)
[2019-06-25] MEDS: LORATADINE 10 MG TAB PO SCH (08:14)
[2019-06-25] MEDS: ASPIRIN EC 81 MG TAB PO SCH (08:14)
[2019-06-25] MEDS: JUVEN PACKET PO SCH ×2 (08:16→20:23)
[2019-06-25] MEDS: AZITHROMYCIN 250 MG TAB PO SCH (08:42)
[2019-06-25] MEDS: BACI/NEOMYCIN/POLY OINT 15GM TOP SCH (09:50)
--- NOTE | 2019-06-25 11:43 | FAST ---
SHIFT START DATE/TIME: 06/25/2019 07:00 (CDT) SHIFT END DATE/TIME: 06/25/2019 19:00 (CDT) NAME NABIL MARTI DATE OF : 1945 DATE OF ADMISSION: 06/22/2019 18:11 (CDT) PHONE: AGE: 74 N# [id number] GENDER: Male ENCOUNTER PHYSICIAN: Dr. Magdi De Jesus M.D. ADMISSION DIAGNOSIS: - Orthopaedic Disorders 08 - Unilateral Hip Fracture (08.11) RIGHT HIP FRACTURE. EATING: EATING - STEP 1: Does the patient require the assistance of a person or device, or need extra time when eating? Yes. EATING - STEP 2: Does the patient require the assistance of a helper? Yes. EATING - STEP 3: Does the patient perform half or more of the eating tasks? Yes. EATING - STEP 4: Does the patient need only supervision, cuing, coaxing OR help to apply an orthosis OR help to cut fo od, open containers, pour liquids, or butter bread? No. EATING - SCORE: 4-MIN GROOMING: Activity did not occur on this shift GROOMING - SCORE: 0-UNK BATHING: Activity did not occur on this shift BATHING - SCORE: 0-UNK DRESSING - UPPER BODY: Activity did not occur on this shift ARTICLES SCORE Total number of steps: 0 DRESSING - UPPER BODY - SCORE: 0-UNK DRESSING - LOWER BODY: Activity did not occur on this shift ARTICLES SCORE Total number of steps: 0 DRESSING - LOWER BODY - SCORE: 0-UNK TOILETING: TOILETING - STEP 1: Does the patient require the assistance of a person or device, or need extra time with toileting? Yes . TOILETING - STEP 2: Does the patient require the assistance of a helper? Yes. TOILETING - STEP 3: How much assistance does the patient require from the helper? Hands-on assistance from the helper TOILETING - STEP 4: Of the 3 tasks: 1) Adjusting clothing prior to use, 2) Cleansing of perineal area, 3) Adjusting clot stefano after use; How many tasks does the patient perform WITHOUT assistance of the helper? One task TOILETING - SCORE: 2-MAX BLADDER MANAGEMENT: BLADDER MANAGEMENT - STEP 1: Does the patient control the bladder completely and intentionally without equipment or devices or med ications, and is always continent? No. BLADDER MANAGEMENT - STEP 2: Does the patient require the assistance of a helper? No, patient requires and independently uses an a ssistive device, such as a urinal, bedpan, bedside commode, catheter, absorbent pad, or collecting de vice BLADDER MANAGEMENT - SCORE: 6-SUYAPA BOWEL MANAGEMENT: BOWEL MANAGEMENT - STEP 1: Does the patient control bowels completely and intentionally without equipment devices or medications AND is always continent? No. BOWEL MANAGEMENT - STEP 2: Does the patient require the assistance of a helper? No, patient requires and manages independently a n assistive device such as a bedpan, bedside commode, absorbent pad, incontinent device, or collectin g device BOWEL MANAGEMENT - SCORE: 6-SUYAPA TRANSFERS: BED, CHAIR, WHEELCHAIR: TRANSFERS: BED, CHAIR, WHEELCHAIR - STEP 1: Does the patient require assistance of a person or device, or need extra time with bed, chair, or whe elchair transfers? Yes. TRANSFERS: BED, CHAIR, WHEELCHAIR - STEP 2: Does the patient require the assistance of a helper? Yes. TRANSFERS: BED, CHAIR, WHEELCHAIR - STEP 3: How much assistance does the patient require from the helper? Lifting of the patient TRANSFERS: BED, CHAIR, WHEELCHAIR - STEP 4: Does the helper lift the patient ONLY up? ONLY down? Up AND Down? Up AND Down. TRANSFERS: BED, CHAIR, WHEELCHAIR - SCORE: 2-MAX TRANSFERS: TOILET: TRANSFERS: TOILET - STEP 1: Does the patient require the assistance of a person or device, or need extra time with toilet transfe rs? Yes. TRANSFERS: TOILET - STEP 2: Does the patient require the assistance of a helper? Yes. TRANSFERS: TOILET - STEP 3: How much assistance does the patient require from the helper? Patient performs half or more of the tr ansferring tasks TRANSFERS: TOILET - STEP 4: Does the patient need only incidental help such as contact guard or steadying during toilet transfer? No. Patient needs more than incidental help TRANSFERS: TOILET - SCORE: 3-MOD TRANSFERS: SHOWER: Activity did not occur on this shift TRANSFERS: SHOWER - SCORE: 0-UNK TRANSFERS: TUB: Activity did not occur on this shift TRANSFERS: TUB - SCORE: 0-UNK LOCOMOTION: WALK: Activity did not occur on this shift LOCOMOTION: WALK - SCORE: 0-UNK LOCOMOTION: WHEELCHAIR: Activity did not occur on this shift LOCOMOTION: WHEELCHAIR - SCORE: 0-UNK COMPREHENSION: COMPREHENSION - SCORE: 0-UNK EXPRESSION EXPRESSION - SCORE: 0-UNK SOCIAL INTERACTION: SOCIAL INTERACTION - SCORE: 0-UNK PROBLEM SOLVING: PROBLEM SOLVING - SCORE: 0-UNK MEMORY: MEMORY - SCORE: 0-UNK SIGNATURE PANEL: The following modified sections: Eating - Score, Grooming - Score, Bathing - Score, Dressing - Upper Body - Score, Dressing - Lower Body - Score, Toileting - Score, Bladder Management - Score, Bowel Man agement - Score, Transfers: Bed, Chair, Wheelchair - Score, Transfers: Bed, Chair, Wheelchair - Score , Transfers: Bed, Chair, Wheelchair - Score, Transfers: Toilet - Score, Transfers: Shower - Score, Tr ansfers: Tub - Score, Locomotion: Walk - Score, Locomotion: Wheelchair - Score, Comprehension - Score , Expression - Score, Social Interaction - Score, Problem Solving - Score, Memory - Score were [elect ronically] signed by Scott Alonzo on SatJun 25 2019 11:42:24 GMT-0500 (Central Daylight Time)
--- NOTE | 2019-06-25 15:14 | FAST ---
ENCOUNTER DATE AND TIME: 06/24/2019 08:00 (CDT) NAME NABIL MARTI DATE OF : 1945 DATE OF ADMISSION: 06/22/2019 18:11 (CDT) PHONE: AGE: 74 SSN# [id number] GENDER: Male ENCOUNTER PHYSICIAN: Dr. Magdi De Jesus M.D. ADMISSION DIAGNOSIS: - Orthopaedic Disorders 08 - Unilateral Hip Fracture (08.11) RIGHT HIP FRACTURE. EATING: Activity did not occur on this shift EATING - SCORE: 0-UNK GROOMING: Activity did not occur on this shift GROOMING - SCORE: 0-UNK BATHING: Activity did not occur on this shift BATHING - SCORE: 0-UNK DRESSING - UPPER BODY: Activity did not occur on this shift Patient is not dressing in public clothing ARTICLES SCORE Total number of steps: 0 DRESSING - UPPER BODY - SCORE: 0-UNK DRESSING - LOWER BODY: Activity did not occur on this shift Patient is not dressing in public clothing ARTICLES SCORE Total number of steps: 0 DRESSING - LOWER BODY - SCORE: 0-UNK TOILETING: Activity did not occur on this shift TOILETING - SCORE: 0-UNK BLADDER MANAGEMENT: Activity did not occur on this shift BLADDER MANAGEMENT - SCORE: 7-IND BOWEL MANAGEMENT: Activity did not occur on this shift BOWEL MANAGEMENT - SCORE: 7-IND TRANSFERS: BED, CHAIR, WHEELCHAIR: TRANSFERS: BED, CHAIR, WHEELCHAIR - STEP 1: Does the patient require assistance of a person or device, or need extra time with bed, chair, or whe elchair transfers? Yes. TRANSFERS: BED, CHAIR, WHEELCHAIR - STEP 2: Does the patient require the assistance of a helper? Yes. TRANSFERS: BED, CHAIR, WHEELCHAIR - STEP 3: How much assistance does the patient require from the helper? Lifting of the patient TRANSFERS: BED, CHAIR, WHEELCHAIR - STEP 4: Does the helper lift the patient ONLY up? ONLY down? Up AND Down? Up AND Down. TRANSFERS: BED, CHAIR, WHEELCHAIR - SCORE: 2-MAX TRANSFERS: TOILET: Activity did not occur on this shift TRANSFERS: TOILET - SCORE: 0-UNK TRANSFERS: SHOWER: Activity did not occur on this shift TRANSFERS: SHOWER - SCORE: 0-UNK TRANSFERS: TUB: Activity did not occur on this shift TRANSFERS: TUB - SCORE: 0-UNK LOCOMOTION: WALK: Patient walks less than 50 feet LOCOMOTION: WALK - SCORE: 1-DEP LOCOMOTION: WHEELCHAIR: LOCOMOTION: WHEELCHAIR - STEP 1: Does the patient need help to go 150 feet in a wheelchair? Yes. LOCOMOTION: WHEELCHAIR - STEP 2: How much assistance does the patient need from the helper? Only supervision, cuing, or coaxing LOCOMOTION: WHEELCHAIR - SCORE: 5-SUP LOCOMOTION: STAIRS: Activity did not occur on this shift LOCOMOTION: STAIRS - SCORE: 0-UNK COMPREHENSION: COMPREHENSION - SCORE: 0-UNK EXPRESSION EXPRESSION - SCORE: 0-UNK SOCIAL INTERACTION: SOCIAL INTERACTION - SCORE: 0-UNK PROBLEM SOLVING: PROBLEM SOLVING - SCORE: 0-UNK MEMORY: MEMORY - SCORE: 0-UNK SIGNATURE PANEL: The following modified sections: Transfers: Bed, Chair, Wheelchair - Score, Transfers: Toilet - Score , Locomotion: Walk - Score, Locomotion: Wheelchair - Score, Locomotion: Stairs - Score were [electron ically] signed by Bernardo Hurtado PTA on SatJun 25 2019 15:13:00 GMT-0500 (Central Daylight Time)
--- NOTE | 2019-06-25 15:31 | FAST ---
ENCOUNTER DATE AND TIME: 06/25/2019 08:00 (CDT) NAME NABIL MARTI DATE OF : 1945 DATE OF ADMISSION: 06/22/2019 18:11 (CDT) PHONE: AGE: 74 SSN# [id number] GENDER: Male ENCOUNTER PHYSICIAN: Dr. Magdi De Jesus M.D. ADMISSION DIAGNOSIS: - Orthopaedic Disorders 08 - Unilateral Hip Fracture (08.11) RIGHT HIP FRACTURE. EATING: Activity did not occur on this shift EATING - SCORE: 0-UNK GROOMING: Wash, rinse, and dry face Wash, rinse, and dry hands GROOMING - STEP 1: Does the patient require the assistance of a person or device, or need extra time when grooming? No. GROOMING - SCORE: 7-IND BATHING: Abdomen Buttocks Chest Left arm Left lower leg and foot Left upper leg Perineal area Right arm Right lower leg and foot Right upper leg BATHING - STEP 1: Does the patient require the assistance of a person or device, or need extra time when bathing? Yes. BATHING - STEP 2: Does the patient require the assistance of a helper? Yes. BATHING - STEP 3: How much assistance does the patient require from the helper? Only incidental help such as placement of a wash cloth in his/her hand a few times as s/he bathes OR help to bathe just one or two areas of the body BATHING - SCORE: 4-MIN DRESSING - UPPER BODY: T-shirt/pullover shirt (four steps) ARTICLES SCORE Total number of steps: 4 DRESSING - UPPER BODY - STEP 1: Does the patient require help from a person or device, or need extra time when dressing above the [address]? Yes. DRESSING - UPPER BODY - STEP 2: Does the patient require the assistance of a helper? Yes. DRESSING - UPPER BODY - STEP 3: Does the helper touch the patient while dressing? Yes. DRESSING - UPPER BODY - STEP 4: How many of the total steps does the patient complete on his/her own? 3 DRESSING - UPPER BODY - SCORE: 4-MIN DRESSING - LOWER BODY: Elastic waist pants (three steps) Slip-on shoe - Left foot (one step) Sock - Left foot (one step) Sock - Right foot (one step) Tied or buckled shoe - Right foot (two steps) Underwear (three steps) ARTICLES SCORE Total number of steps: 11 DRESSING - LOWER BODY - STEP 1: Does the patient require help from a person or device, or need extra time when dressing below the [address]? Yes. DRESSING - LOWER BODY - STEP 2: Does the patient require the assistance of a helper? Yes. DRESSING - LOWER BODY - STEP 3: Does the helper touch the patient while dressing? Yes. DRESSING - LOWER BODY - STEP 4: How many of the total steps does the patient complete on his/her own? 3 DRESSING - LOWER BODY - STEP 5: Does patient require total assistance for dressing below the waist such as the helper holding clothin g and performing basically all the activities? No. DRESSING - LOWER BODY - SCORE: 2-MAX TOILETING: Activity did not occur on this shift TOILETING - SCORE: 0-UNK BLADDER MANAGEMENT: Activity did not occur on this shift BLADDER MANAGEMENT - SCORE: 7-IND BOWEL MANAGEMENT: Activity did not occur on this shift BOWEL MANAGEMENT - SCORE: 7-IND TRANSFERS: BED, CHAIR, WHEELCHAIR: Activity did not occur on this shift TRANSFERS: BED, CHAIR, WHEELCHAIR - SCORE: 0-UNK TRANSFERS: TOILET: Activity did not occur on this shift TRANSFERS: TOILET - SCORE: 0-UNK TRANSFERS: SHOWER: TRANSFERS: SHOWER - STEP 1: Does the patient require the assistance of a person or device, or need extra time with shower transfe rs? Yes. TRANSFERS: SHOWER - STEP 2: Does the patient require the assistance of a helper? Yes. TRANSFERS: SHOWER - STEP 3: How much assistance does the patient require from the helper? More than incidental help TRANSFERS: SHOWER - STEP 4: How much more help does the patient require from the helper? Lifting the patient either up OR down fr om the wheelchair onto the shower chair TRANSFERS: SHOWER - SCORE: 3-MOD TRANSFERS: TUB: Activity did not occur on this shift TRANSFERS: TUB - SCORE: 0-UNK LOCOMOTION: WALK: Activity did not occur on this shift LOCOMOTION: WALK - SCORE: 0-UNK LOCOMOTION: WHEELCHAIR: Activity did not occur on this shift LOCOMOTION: WHEELCHAIR - SCORE: 0-UNK LOCOMOTION: STAIRS: Activity did not occur on this shift LOCOMOTION: STAIRS - SCORE: 0-UNK COMPREHENSION: COMPREHENSION: TYPE: Visual COMPREHENSION - STEP 1: Does the patient require help from a person or device, or need extra time to understand complex and a bstract ideas (such as current events, finances, discharge planning, medical issues, relationships, e tc)? No. COMPREHENSION - STEP 2: Does the patient need extra time, require an assistive device (such as glasses for visual comprehensi on or a hearing aid for auditory comprehension) or does s/he have mild difficulty understanding compl ex and abstract information? Yes. COMPREHENSION - SCORE: 6-SUYAPA EXPRESSION EXPRESSION: TYPE: Non-Vocal EXPRESSION - STEP 1: Does the patient require help from a person or device, or need extra time expressing complex and abst ract ideas (such as current events, finances, discharge planning, medical issues, relationships, etc) ? No. EXPRESSION - STEP 2: Does the patient need extra time, require an assistive device (such as augmentive communication syste m or a communication board), OR does s/he have mild difficulty expressing complex and abstract ideas (including mild dysarthria or mild word-find problems)? No. EXPRESSION - SCORE: 7-IND SOCIAL INTERACTION: SOCIAL INTERACTION - STEP 1: Does the patient require a helper to interact with others in social and therapeutic situations? No. SOCIAL INTERACTION - STEP 2: Does the patient need extra time in social situations, OR does s/he interact with staff, other patien ts, and family members ONLY in structured environments, OR does s/he require medication for social in teraction? No. SOCIAL INTERACTION - SCORE: 7-IND PROBLEM SOLVING: PROBLEM SOLVING - STEP 1: Does the patient need help from a person or device, or need extra time to solve complex problems such as managing a checking account or confronting interpersonal problems? No. PROBLEM SOLVING - STEP 2: Does the patient require extra time to make decisions or solve problems, OR does s/he have slight dif ficulty reading, initiating, or self-correcting in unfamiliar situations? Yes, patient needs extra ti me. PROBLEM SOLVING - SCORE: 6-SUYAPA MEMORY: MEMORY - STEP 1: Does the patient need help from a person or device, or need extra time to remember frequently encount ered people, daily routines, and executing requests? No. MEMORY - STEP 2: Does the patient have slight difficulty recognizing frequently encountered people, daily routines, or executing requests without the need for repetition or using self-initiated or environmental cues to remember? Yes. MEMORY - SCORE: 6-SUYAPA SIGNATURE PANEL: The following modified sections: Eating - Score, Grooming - Score, Bathing - Score, Dressing - Upper Body - Score, Dressing - Lower Body - Score, Dressing - Lower Body - Score, Toileting - Score, Transf ers: Bed, Chair, Wheelchair - Score, Transfers: Toilet - Score, Transfers: Shower - Score, Transfers: Shower - Score, Transfers: Tub - Score, Comprehension - Score, Expression - Score, Social Interactio n - Score, Problem Solving - Score, Memory - Score were [electronically] signed by ANNY Ayala on SatJun 25 2019 15:29:47 GMT-0500 (Central Daylight Time)
--- NOTE | 2019-06-25 16:37 | RAD REPORT ---
EXAM DESCRIPTION: RAD - Chest Single View - 06/25/2019 4:30 pm CLINICAL HISTORY: INCREASED IN WBC-ON ABX Chest pain. COMPARISON: Chest Single View dated 06/20/2019 FINDINGS: Portable technique limits examination quality. The lungs are grossly clear. Calcified pleural plaques are present bilaterally compatible with prior asbestos exposure. The heart is normal in size. No displaced fractures. IMPRESSION: No acute intrathoracic process suspected. Calcified pleural plaques bilaterally compatible with prior asbestos exposure.
--- NOTE | 2019-06-25 18:32 | R.PN ---
ENCOUNTER DATE AND TIME: 06/25/2019 18:30 (CDT) NAME NABIL MARTI DATE OF : 1945 DATE OF ADMISSION: 06/22/2019 18:11 (CDT) RIGHT HIP FRACTURECHIEF COMPLAINT: Right hip fracture SUBJECTIVE: Pt denied any depression. Pt denied any Shortness of Breath. He has less bilateral knee pain after 5% lidoderm patches were placed. He is making good overall prog ress with physical and occupational therapy. VITAL SIGNS Temperature: 97.5 F SBP/DBP: 150/68 Pulse: 81 Resp: 15 MEDICATION ALLERGIES: No Known Drug Allergies (NKDA) ENVIRONMENTAL ALLERGIES: None Known - Substance Allergies None Known - Other Allergies None Known NURSING: - Shower allowing shower - Lab Results blood Sugar Check ACHS - Skin care per protocol PRECAUTIONS: - Posterior Hip Precaution No adduction across midline No external rotation No hip flexion >90 degrees No internal rotation No wheel chair propulsion - Weight Bearing Precaution WBAT right LE ACTIVITIES OOB only with supervision THERAPIES: - Dietary and Nutrition Adequate Nutrition. Nutritional Education. Nutritional Supplements. PHYSICAL EXAM - Gen Alert and awake Lying in bed No apparent distress Oriented to: person, time, and place - Skin Right hip incision intact No abnormalities - Eyes No abnormalities - ENMT No abnormalities - Neck No abnormalities - CVS RRR - Chest No abnormalities - Resp Clear to auscultation - Abd Soft - GI nondistended Deferred - No abnormalities - Ext Mild bilateral lower extremity edema. - MSK 4+/5 weakness in both lower extremities. - Neuro No focal deficits - Psych No abnormalities ASSESSMENT: Pt. is a 74 yo Right-handed white male.On 06/20/2019 he was admitted to [facility] with diagnosis RIGHT HIP FRACTURE.His impairment category is Orthopaedic Disorders 08 - Unilater al Hip Fracture (08.11).Pre-morbidly, Pt. was independent/mod-I in Self-Care, Sphincter Control, Miguel sfers Control, Locomotion, Communication, and Social Cognition; and he had good Sphincter Control.Cur rently, he has deficits of Self-Care, Transfers Control, Locomotion, Endurance, Balance, and Safety A wareness.Pt. is now referred to [facility] for acute in-patient rehabilitation in order to maximize patient's functional independence in activities of daily living, strength, ROM, and mobility.- Rehab Goal Patient has realistic goal of being discharged at assistance level 6-[place] to reside at Home with Fam delmy/Relatives. MDM/PLAN: - Physical Therapy Decreased range of motion - to improve, our physical therapists will perform initial evaluation of p t's status upon admission and devise an individualized program for increasing patient's Range of Patricio on. Gait dysfunction - to improve, our physical therapists will perform initial evaluation of pt's statu s upon admission and devise an individualized program for Gait Training, and Wheel Chair mobility Inability to transfer - to improve, our physical therapists will perform initial evaluation of pt's status upon admission and devise an individualized program for Bed mobility Need for home safety evaluation - to improve, our physical therapists will perform initial evaluatio n of pt's status upon admission and devise an individualized program for Home Evaluation Need in caregiver upon discharge - to improve, our physical therapists will perform initial evaluati on of pt's status upon admission and devise an individualized program for Caregiver Training Edema - to improve, our physical therapists will perform initial evaluation of pt's status upon admi ssion and devise an individualized program for Elevation Training, and Lymphedema Therapy New precaution - to improve, our physical therapists will perform initial evaluation of pt's status upon admission and devise an individualized program for Patient precaution education Poor balance - to improve, our physical therapists will perform initial evaluation of pt's status up on admission and devise an individualized program for Balance Training Poor endurance - to improve, our physical therapists will perform initial evaluation of pt's status upon admission and devise an individualized program for Endurance Training Weakness - to improve, our physical therapists will perform initial evaluation of pt's status upon a dmission and devise an individualized program for Aquatic Therapy, Neuromuscular Reeducation, and Str engthening Achieving independence - to improve, our physical therapists will perform initial evaluation of pt's status upon admission and devise an individualized program for Community Reintegration Activities - Occupational Therapy ADL deficits - to improve, our occupation therapists will perform initial evaluation of pt's status upon admission and devise an individualized program for Bathing, Bed mobility, Community Reintegratio n, Cooking, Dressing, Eating, Fine Motor Skills, Grooming, Homemaking, Kitchen Mobility, Laundry, Pat ient Education, Safety Awareness, Splinting - Positioning, Transfers(Toilet, Tub, Shower), and Wheel Chair Management Need for reservoir caretaker - to improve, our occupation therapists will perform initial evaluation of pt's status upon admission and devise an individualized program for Caregiver Training Weakness - to improve, our occupation therapists will perform initial evaluation of pt's status upon admission and devise an individualized program for Aquatic Therapy, Balance, Endurance, UE ROM, and UE strengthening - Other See attached MAR (Medication Administration Record) See attached MAR (Medication Administration Record) Nabil Marti.pdf - Anterior Hip Precaution No abduction No active extension No adduction across midline No external rotation No hip flexion >90 degrees No internal rotation - Diet - Liquid Texture Continue Regular - Tube Feed Continue N/A - Diet Type Continue Regular - Posterior Hip Precaution No adduction across midline No external rotation No hip flexion >90 degrees No internal rotation No wheel chair propulsion - Lab Results blood Sugar Check ACHS - Weight Bearing Precaution WBAT right LE - Skin care per protocol - Diet - Solid Texture Continue Regular - Shower allowing shower FUNCTIONAL STATUS: UPDATED AT WEEKLY TEAM CONFERENCE - Bladder Same accident frequency: 7-Ind - No accidents in the past 7 days - Bowel Same accident frequency: 7-Ind - No accidents in the past 7 days - Walking Same score based on distance walked: 1(<=50ft) - Wheelchair Same score based on distance traveled: 0(N/A) FUNCTIONAL STATUS: - Self-Care A. Eating sup B. Grooming sup C. Bathing modA D. Dressing - Upper modA E. Dressing - Lower maxA F. Toileting maxA - Sphincter Control G: Bladder control Ind H: Bowel control Ind - Transfers Control I. Bed/Chair/Wheelchair maxA J. Toilet maxA K. Tub/Shower ADNO - Locomotion L. Walk/Wheelchair (C) maxA L. Walk/Wheelchair (W) maxA M. Stairs ADNO - Communication N. Comprehension (B) Ind O. Expression (B) Ind - Social Cognition P. Social Interaction Ind Q. Problem Solving Ind R. Memory Ind - Endurance Poor - Balance Fair - Safety Awareness Fair CURRENT FUNC. DEFICITS: Self-Care, Transfers Control, Locomotion, Endurance, Balance, and Safety Awareness SIGNATURE PANEL: (CDT)
[2019-06-25] MEDS: NYSTATIN 100MU/GM CREAM 15GM TOP SCH (20:24)
[2019-06-25] MEDS: TERAZOSIN HCL 5 MG CAP PO SCH (20:24)
[2019-06-25] MEDS: PROMOD 30 ML DOSE PO SCH (20:24)
[2019-06-25] MEDS: INSULIN GLARGINE 100 UNITS/ML SQ SCH (20:25)
[2019-06-26] MEDS: PANTOPRAZOLE 40MG TABLET PO SCH (06:50)
[2019-06-26] MEDS: ENOXAPARIN 40 MG/0.4 ML SQ SCH (06:57)
[2019-06-26] MEDS: LIDOCAINE 4% PATCH TOP SCH (07:07)
[2019-06-26] MEDS: INSULIN -REGULAR HUMAN 50 UNIT/0.5 ML ML SQ SCH ×4 (07:25→21:00)
[2019-06-26] MEDS: INSULIN GLARGINE 100 UNITS/ML SQ SCH ×2 (07:35→21:05)
[2019-06-26] MEDS: TRAMADOL HCL 50 MG TAB PO PRN ×2 (07:36→11:56)
[2019-06-26] MEDS: CEFUROXIME 250 MG TAB PO SCH ×2 (07:38→21:03)
[2019-06-26] MEDS: FERROUS SULFATE 325 MG TAB PO SCH (07:39)
[2019-06-26] MEDS: COLCHICINE 0.6 MG TAB PO SCH (07:39)
[2019-06-26] MEDS: AZITHROMYCIN 250 MG TAB PO SCH (07:39)
[2019-06-26] MEDS: hydroCHLOROthiazide 12.5 MG CAP PO SCH (07:39)
[2019-06-26] MEDS: ASPIRIN EC 81 MG TAB PO SCH (07:40)
[2019-06-26] MEDS: METOPROLOL TAR 50 MG TAB PO SCH ×2 (07:40→21:03)
[2019-06-26] MEDS: AMLODIPINE 5 MG TAB PO SCH (07:41)
[2019-06-26] MEDS: LORATADINE 10 MG TAB PO SCH (07:41)
[2019-06-26] MEDS: LOSARTAN POTASSIUM 50 MG TABLET PO SCH (07:41)
[2019-06-26] MEDS: glipiZIDE 5 MG TAB PO SCH ×2 (07:41→17:13)
[2019-06-26] MEDS: GUAIFENESIN 600 MG SA TAB PO SCH ×2 (07:41→21:03)
[2019-06-26] MEDS: FE SULF/FA/VIT B COMP & C TAB PO SCH (07:42)
[2019-06-26] MEDS: JUVEN PACKET PO SCH ×3 (07:43→21:05)
[2019-06-26] MEDS: NYSTATIN 100MU/GM CREAM 15GM TOP SCH ×2 (07:43→21:04)
[2019-06-26] MEDS: BACI/NEOMYCIN/POLY OINT 15GM TOP SCH ×2 (07:44→11:34)
[2019-06-26] MEDS: PROMOD 30 ML DOSE PO SCH ×3 (07:44→21:04)
[2019-06-26] MEDS: MAGNESIUM OXIDE 400 MG TAB PO SCH ×2 (07:46→20:00)
--- NOTE | 2019-06-26 08:19 | CON ---
Date of Consultation: 06/25/2019 Reason For Consultation: Heel decubitus. History Of Present Illness: Patient is a 74-year-old gentleman, who is on the rehab unit of [facility] following the right hip surgery and he was admitted with cough and shortness of breath on the May and he was noted to have a blister on his right heel and I was consulted. There was minimal drainage from it. No fever or chills. No purulent discharge, appeared to be bloody drainage probably a large blood blister. Review of Systems: Otherwise unremarkable. Past Medical History: Significant for hypertension, hyperlipidemia, diabetes type 2, BPH, obesity an d osteoarthritis. Past Surgical History: Toe amputation, left foot; appendectomy; cholecystectomy; right hip replaceme nt. Allergies: NONE. Social History: Patient does not smoke or drink. Family History: Noncontributory. Physical Examination: Vital Signs: Stable. He is afebrile. General: He is awake and alert. Head and Neck: No masses. Chest: Clear. Heart: S1, S2. Abdomen: Soft. Extremity: Neurovascularly intact with diminished dorsalis pedis posterior tibial pulses. On the ri ght heel there is approximately a 6 x 4 cm of a blister which was debrided and this was deemed just t he epidermis that the fluid was under and there was serous or bloody discharge. No signs of active i nfection around it and this debrided with scissors. Assessment: Right heel decubitus. Recommendations: Offload, nutritional optimization, Neosporin to wound. Re-guidance counselor pjaelyn MOJICA/NAINA Voice ID: [id number] Report ID: [id number]
--- NOTE | 2019-06-26 09:38 | P.RH.PN ---
Estimated Length of Stay: 16 Expected Discharge Date: 07/07/19 Discharge Disposition Plan: Home Family Support: Yes Group Home Goal: Mobility, Transfers, Self Care Vital Signs: Last Vital Signs Temp 97.7 F 06/26/19 06:43 Pulse 100 H 06/26/19 07:41 Resp 18 06/26/19 07:36 BP 137/56 L 06/26/19 07:41 Pulse Ox 99 06/26/19 07:36 Laboratory: Laboratory Last Values WBC 13.2 K/uL (4.3-10.9) H 06/25/19 07:19 RBC 3.42 M/uL (4.33-5.43) L 06/25/19 07:19 Hgb 8.7 g/dL (13.6-17.9) L 06/25/19 07:19 Hct 27.3 % (39.6-49.0) L 06/25/19 07:19 MCV 80.0 fL (80-100) 06/25/19 07:19 MCH 25.5 pg (27.0-35.0) L 06/25/19 07:19 MCHC 31.8 g/dL (32.0-36.0) L 06/25/19 07:19 RDW 17.8 % (12.1-15.2) H 06/25/19 07:19 Plt Count 477 K/uL (152-406) H 06/25/19 07:19 MPV 6.5 fL (7.6-11.3) L 06/25/19 07:19 Neutrophils % 66.5 % (41.7-73.7) 06/25/19 07:19 Lymphocytes % 15.5 % (15.3-44.8) 06/25/19 07:19 Monocytes % 10.6 % (3.3-12.3) 06/25/19 07:19 Eosinophils % 6.6 % (0-4.4) H 06/25/19 07:19 Basophils % 0.8 % (0-1.3) 06/25/19 07:19 Absolute Neutrophils 8.8 K/uL (1.8-8.0) H 06/25/19 07:19 Absolute Lymphocytes 2.0 K/uL (0.7-4.9) 06/25/19 07:19 Absolute Monocytes 1.4 K/uL (0.1-1.3) H 06/25/19 07:19 Absolute Eosinophils 0.9 K/uL (0-0.5) H 06/25/19 07:19 Absolute Basophils 0.1 K/uL (0-0.5) 06/25/19 07:19 Sodium 141 mmol/L (136-145) 06/25/19 07:19 Potassium 4.2 mmol/L (3.5-5.1) 06/25/19 07:19 Chloride 110 mmol/L (98-107) H 06/25/19 07:19 Carbon Dioxide 24 mmol/L (21-32) 06/25/19 07:19 BUN 35 mg/dL (7-18) H 06/25/19 07:19 Creatinine 2.96 mg/dL (0.55-1.3) H D 06/25/19 07:19 Estimated GFR 21 mL/min (=/>90) L 06/25/19 07:19 Glucose 79 mg/dL (74-106) 06/25/19 07:19 POC Glucose 125 mg/dl (65-120) H 06/26/19 07:24 Calcium 9.2 mg/dL (8.5-10.1) 06/25/19 07:19 Magnesium 2.1 mg/dL (1.8-2.4) D 06/25/19 07:19 Albumin 3.2 g/dL (3.4-5.0) L D 06/25/19 07:19 Prealbumin 12.2 mg/dL (20-40) L 06/25/19 07:19 Weight: 204 lb 8 oz Wound Present: Yes Closed Surgical Incision Present: Yes Negative Pressure Wound Therapy Present: No Physician Update: Labs reviewed. Hgb is low. He is on hemocyte plus. His chest x -ray shows possible asbestos exposure. Will discuss with the patient. He is making slow overall progress with physical and occupational therapy due to his knees, hips and shoulder. Medical Issues: Pheumonia - Azithromycin 250mg Daily PO, Cefuroxime 500mg BID PO Pain Issues: Tramadol 50mg Q6H PO PRN. Lidoderm patch 5% Daily Functional Improvement: Patient currently has not met any short-term goals at this time, however is showing progress w/ proper technique for hand placement, transfers, balance, and gait tx. Functional Improvement Occupational Therapy: Cont to educate pt on hip precautions and using A/E as needed for safety and for energy conservation techniques. Cont to increase pt's UB strength for adl tasks and cont to increase pt's static standing balace for bathing and clothing mgmt. Summary: Patient's care plan and residential goals have been reviewed and revised as necessary. Please see the Rehabilitation Signature page for all necessary signatures.
[2019-06-26] MEDS: MEDIHONEY 44 ML TOPICAL TUBE TOP SCH (11:47)
--- NOTE | 2019-06-26 15:00 | FAST ---
ENCOUNTER DATE AND TIME: 06/26/2019 08:00 (CDT) NAME NABIL MARTI DATE OF : 1945 DATE OF ADMISSION: 06/22/2019 18:11 (CDT) PHONE: AGE: 74 SSN# [id number] GENDER: Male ENCOUNTER PHYSICIAN: Dr. Magdi De Jesus M.D. ADMISSION DIAGNOSIS: - Orthopaedic Disorders 08 - Unilateral Hip Fracture (08.11) RIGHT HIP FRACTURE. EATING: Activity did not occur on this shift EATING - SCORE: 0-UNK GROOMING: Activity did not occur on this shift GROOMING - SCORE: 0-UNK BATHING: Activity did not occur on this shift BATHING - SCORE: 0-UNK DRESSING - UPPER BODY: Activity did not occur on this shift Patient is not dressing in public clothing ARTICLES SCORE Total number of steps: 0 DRESSING - UPPER BODY - SCORE: 0-UNK DRESSING - LOWER BODY: Activity did not occur on this shift Patient is not dressing in public clothing ARTICLES SCORE Total number of steps: 0 DRESSING - LOWER BODY - SCORE: 0-UNK TOILETING: Activity did not occur on this shift TOILETING - SCORE: 0-UNK BLADDER MANAGEMENT: Activity did not occur on this shift BLADDER MANAGEMENT - SCORE: 7-IND BOWEL MANAGEMENT: Activity did not occur on this shift BOWEL MANAGEMENT - SCORE: 7-IND TRANSFERS: BED, CHAIR, WHEELCHAIR: TRANSFERS: BED, CHAIR, WHEELCHAIR - STEP 1: Does the patient require assistance of a person or device, or need extra time with bed, chair, or whe elchair transfers? Yes. TRANSFERS: BED, CHAIR, WHEELCHAIR - STEP 2: Does the patient require the assistance of a helper? Yes. TRANSFERS: BED, CHAIR, WHEELCHAIR - STEP 3: How much assistance does the patient require from the helper? Steadying/guiding assistance TRANSFERS: BED, CHAIR, WHEELCHAIR - SCORE: 4-MIN TRANSFERS: TOILET: Activity did not occur on this shift TRANSFERS: TOILET - SCORE: 0-UNK TRANSFERS: SHOWER: Activity did not occur on this shift TRANSFERS: SHOWER - SCORE: 0-UNK TRANSFERS: TUB: Activity did not occur on this shift TRANSFERS: TUB - SCORE: 0-UNK LOCOMOTION: WALK: Patient walks less than 50 feet LOCOMOTION: WALK - SCORE: 1-DEP LOCOMOTION: WHEELCHAIR: LOCOMOTION: WHEELCHAIR - STEP 1: Does the patient need help to go 150 feet in a wheelchair? Yes. LOCOMOTION: WHEELCHAIR - STEP 2: How much assistance does the patient need from the helper? Only supervision, cuing, or coaxing LOCOMOTION: WHEELCHAIR - SCORE: 5-SUP LOCOMOTION: STAIRS: Activity did not occur on this shift LOCOMOTION: STAIRS - SCORE: 0-UNK COMPREHENSION: COMPREHENSION - SCORE: 0-UNK EXPRESSION EXPRESSION - SCORE: 0-UNK SOCIAL INTERACTION: SOCIAL INTERACTION - SCORE: 0-UNK PROBLEM SOLVING: PROBLEM SOLVING - SCORE: 0-UNK MEMORY: MEMORY - SCORE: 0-UNK SIGNATURE PANEL: The following modified sections: Transfers: Bed, Chair, Wheelchair - Score, Transfers: Toilet - Score , Locomotion: Walk - Score, Locomotion: Wheelchair - Score, Locomotion: Stairs - Score were [robert cummings] signed by Bernardo Hurtado PTA on SatJun 26 2019 14:59:58 GMT-0500 (Central Daylight Time)
[2019-06-26] MEDS: TERAZOSIN HCL 5 MG CAP PO SCH (21:03)
--- NOTE | 2019-06-27 02:31 | FAST ---
SHIFT START DATE/TIME: 06/26/2019 19:00 (CDT) SHIFT END DATE/TIME: 06/27/2019 07:00 (CDT) NAME NABIL MARTI DATE OF : 1945 DATE OF ADMISSION: 06/22/2019 18:11 (CDT) PHONE: AGE: 74 N# [id number] GENDER: Male ENCOUNTER PHYSICIAN: Dr. Magdi De Jesus M.D. ADMISSION DIAGNOSIS: - Orthopaedic Disorders 08 - Unilateral Hip Fracture (08.11) RIGHT HIP FRACTURE. EATING: Activity did not occur on this shift EATING - SCORE: 0-UNK GROOMING: Activity did not occur on this shift GROOMING - SCORE: 0-UNK BATHING: Activity did not occur on this shift BATHING - SCORE: 0-UNK DRESSING - UPPER BODY: Activity did not occur on this shift ARTICLES SCORE Total number of steps: 0 DRESSING - UPPER BODY - SCORE: 0-UNK DRESSING - LOWER BODY: Activity did not occur on this shift ARTICLES SCORE Total number of steps: 0 DRESSING - LOWER BODY - SCORE: 0-UNK TOILETING: TOILETING - STEP 1: Does the patient require the assistance of a person or device, or need extra time with toileting? Yes . TOILETING - STEP 2: Does the patient require the assistance of a helper? Yes. TOILETING - STEP 3: How much assistance does the patient require from the helper? Hands-on assistance from the helper TOILETING - STEP 4: Of the 3 tasks: 1) Adjusting clothing prior to use, 2) Cleansing of perineal area, 3) Adjusting clot stefano after use; How many tasks does the patient perform WITHOUT assistance of the helper? Three tasks with steadying assistance from the helper TOILETING - SCORE: 4-MIN BLADDER MANAGEMENT: BLADDER MANAGEMENT - STEP 1: Does the patient control the bladder completely and intentionally without equipment or devices or med ications, and is always continent? No. BLADDER MANAGEMENT - STEP 2: Does the patient require the assistance of a helper? Yes. BLADDER MANAGEMENT - STEP 3: How much assistance does the patient require from the helper? Only set-up of equipment - such as plac ing it within reach of the patient or emptying a device - to maintain either satisfactory voiding pat tern or managing an external device, such as an absorbent pad, ileal device, or catheter BLADDER MANAGEMENT - SCORE: 5-SUP BOWEL MANAGEMENT: Activity did not occur on this shift BOWEL MANAGEMENT - SCORE: 7-IND TRANSFERS: BED, CHAIR, WHEELCHAIR: Activity did not occur on this shift TRANSFERS: BED, CHAIR, WHEELCHAIR - SCORE: 0-UNK TRANSFERS: TOILET: Activity did not occur on this shift TRANSFERS: TOILET - SCORE: 0-UNK TRANSFERS: SHOWER: Activity did not occur on this shift TRANSFERS: SHOWER - SCORE: 0-UNK TRANSFERS: TUB: Activity did not occur on this shift TRANSFERS: TUB - SCORE: 0-UNK LOCOMOTION: WALK: Activity did not occur on this shift LOCOMOTION: WALK - SCORE: 0-UNK LOCOMOTION: WHEELCHAIR: Activity did not occur on this shift LOCOMOTION: WHEELCHAIR - SCORE: 0-UNK COMPREHENSION: COMPREHENSION: TYPE: Both COMPREHENSION - STEP 1: Does the patient require help from a person or device, or need extra time to understand complex and a bstract ideas (such as current events, finances, discharge planning, medical issues, relationships, e tc)? Yes. COMPREHENSION - STEP 2: Does the patient require help to understand questions or statements about basic needs or ideas (such as hunger, thirst, sleep, safety, daily schedule, room location, or discomfort) half or more of the t [place]? No. COMPREHENSION - STEP 3: How often does the patient need help to understand directions and conversation about basic needs? Les s than 10% of the time COMPREHENSION - SCORE: 5-SUP EXPRESSION EXPRESSION: TYPE: Both EXPRESSION - STEP 1: Does the patient require help from a person or device, or need extra time expressing complex and abst ract ideas (such as current events, finances, discharge planning, medical issues, relationships, etc) ? No. EXPRESSION - STEP 2: Does the patient need extra time, require an assistive device (such as augmentive communication syste m or a communication board), OR does s/he have mild difficulty expressing complex and abstract ideas (including mild dysarthria or mild word-find problems)? Yes. EXPRESSION - SCORE: 6-SUYAPA SOCIAL INTERACTION: SOCIAL INTERACTION - STEP 1: Does the patient require a helper to interact with others in social and therapeutic situations? No. SOCIAL INTERACTION - STEP 2: Does the patient need extra time in social situations, OR does s/he interact with staff, other patien ts, and family members ONLY in structured environments, OR does s/he require medication for social in teraction? Yes, patient needs extra time SOCIAL INTERACTION - SCORE: 6-SUYAPA PROBLEM SOLVING: PROBLEM SOLVING - STEP 1: Does the patient need help from a person or device, or need extra time to solve complex problems such as managing a checking account or confronting interpersonal problems? Yes. PROBLEM SOLVING - STEP 2: Does the patient solve basic routine problems half or more of the time? Yes. PROBLEM SOLVING - STEP 3: How often does the patient need help to solve basic routine problems? 10%-24% of the time PROBLEM SOLVING - SCORE: 4-MIN MEMORY: MEMORY - STEP 1: Does the patient need help from a person or device, or need extra time to remember frequently encount ered people, daily routines, and executing requests? No. MEMORY - STEP 2: Does the patient have slight difficulty recognizing frequently encountered people, daily routines, or executing requests without the need for repetition or using self-initiated or environmental cues to remember? Yes. MEMORY - SCORE: 6-SUYAPA
[2019-06-27] MEDS: PANTOPRAZOLE 40MG TABLET PO SCH (06:24)
[2019-06-27] MEDS: ENOXAPARIN 40 MG/0.4 ML SQ SCH (06:25)
[2019-06-27] MEDS: LIDOCAINE 4% PATCH TOP SCH ×2 (06:25→09:14)
[2019-06-27] MEDS: NYSTATIN 100MU/GM CREAM 15GM TOP SCH ×3 (06:25→19:25)
[2019-06-27] MEDS: INSULIN -REGULAR HUMAN 50 UNIT/0.5 ML ML SQ SCH ×4 (07:15→20:50)
[2019-06-27] MEDS: INSULIN GLARGINE 100 UNITS/ML SQ SCH ×2 (07:33→20:49)
[2019-06-27] MEDS: COLCHICINE 0.6 MG TAB PO SCH (07:34)
[2019-06-27] MEDS: AMLODIPINE 5 MG TAB PO SCH (07:34)
[2019-06-27] MEDS: CEFUROXIME 250 MG TAB PO SCH (07:34)
[2019-06-27] MEDS: ASPIRIN EC 81 MG TAB PO SCH (07:34)
[2019-06-27] MEDS: MAGNESIUM OXIDE 400 MG TAB PO SCH ×2 (07:35→19:25)
[2019-06-27] MEDS: LOSARTAN POTASSIUM 50 MG TABLET PO SCH (07:35)
[2019-06-27] MEDS: glipiZIDE 5 MG TAB PO SCH ×2 (07:35→17:03)
[2019-06-27] MEDS: FE SULF/FA/VIT B COMP & C TAB PO SCH (07:35)
[2019-06-27] MEDS: AZITHROMYCIN 250 MG TAB PO SCH (07:36)
[2019-06-27] MEDS: PROMOD 30 ML DOSE PO SCH ×2 (07:36→19:26)
[2019-06-27] MEDS: FERROUS SULFATE 325 MG TAB PO SCH (07:37)
[2019-06-27] MEDS: METOPROLOL TAR 50 MG TAB PO SCH ×2 (07:37→19:24)
[2019-06-27] MEDS: LORATADINE 10 MG TAB PO SCH (07:37)
[2019-06-27] MEDS: GUAIFENESIN 600 MG SA TAB PO SCH ×2 (07:37→19:25)
[2019-06-27] MEDS: JUVEN PACKET PO SCH ×2 (07:37→19:26)
[2019-06-27] MEDS: TRAMADOL HCL 50 MG TAB PO PRN (07:38)
[2019-06-27] MEDS: hydroCHLOROthiazide 12.5 MG CAP PO SCH (07:41)
[2019-06-27] MEDS: BACI/NEOMYCIN/POLY OINT 15GM TOP SCH (09:55)
[2019-06-27] MEDS: MEDIHONEY 44 ML TOPICAL TUBE TOP SCH (09:55)
--- NOTE | 2019-06-27 12:42 | FAST ---
ENCOUNTER DATE AND TIME: 06/27/2019 08:00 (CDT) NAME NABIL MARTI DATE OF : 1945 DATE OF ADMISSION: 06/22/2019 18:11 (CDT) PHONE: AGE: 74 SSN# [id number] GENDER: Male ENCOUNTER PHYSICIAN: Dr. Magdi De Jesus M.D. ADMISSION DIAGNOSIS: - Orthopaedic Disorders 08 - Unilateral Hip Fracture (08.11) RIGHT HIP FRACTURE. EATING: Activity did not occur on this shift EATING - SCORE: 0-UNK GROOMING: Comb/brush hair Oral care Wash, rinse, and dry face Wash, rinse, and dry hands GROOMING - STEP 1: Does the patient require the assistance of a person or device, or need extra time when grooming? No. GROOMING - SCORE: 7-IND BATHING: Abdomen Buttocks Chest Left arm Left lower leg and foot Left upper leg Perineal area Right arm Right lower leg and foot Right upper leg BATHING - STEP 1: Does the patient require the assistance of a person or device, or need extra time when bathing? Yes. BATHING - STEP 2: Does the patient require the assistance of a helper? Yes. BATHING - STEP 3: How much assistance does the patient require from the helper? Only incidental help such as placement of a wash cloth in his/her hand a few times as s/he bathes OR help to bathe just one or two areas of the body BATHING - SCORE: 4-MIN DRESSING - UPPER BODY: T-shirt/pullover shirt (four steps) ARTICLES SCORE Total number of steps: 4 DRESSING - UPPER BODY - STEP 1: Does the patient require help from a person or device, or need extra time when dressing above the [address]? Yes. DRESSING - UPPER BODY - STEP 2: Does the patient require the assistance of a helper? Yes. DRESSING - UPPER BODY - STEP 3: Does the helper touch the patient while dressing? No. DRESSING - UPPER BODY - SCORE: 5-SUP DRESSING - LOWER BODY: Elastic waist pants (three steps) Underwear (three steps) ARTICLES SCORE Total number of steps: 6 DRESSING - LOWER BODY - STEP 1: Does the patient require help from a person or device, or need extra time when dressing below the [address]? Yes. DRESSING - LOWER BODY - STEP 2: Does the patient require the assistance of a helper? Yes. DRESSING - LOWER BODY - STEP 3: Does the helper touch the patient while dressing? Yes. DRESSING - LOWER BODY - STEP 4: How many of the total steps does the patient complete on his/her own? 2 DRESSING - LOWER BODY - STEP 5: Does patient require total assistance for dressing below the waist such as the helper holding clothin g and performing basically all the activities? No. DRESSING - LOWER BODY - SCORE: 2-MAX TOILETING: TOILETING - STEP 1: Does the patient require the assistance of a person or device, or need extra time with toileting? Yes . TOILETING - STEP 2: Does the patient require the assistance of a helper? Yes. TOILETING - STEP 3: How much assistance does the patient require from the helper? Hands-on assistance from the helper TOILETING - STEP 4: Of the 3 tasks: 1) Adjusting clothing prior to use, 2) Cleansing of perineal area, 3) Adjusting clot stefano after use; How many tasks does the patient perform WITHOUT assistance of the helper? No tasks; h elper performs all three tasks TOILETING - SCORE: 1-DEP BLADDER MANAGEMENT: Activity did not occur on this shift BLADDER MANAGEMENT - SCORE: 7-IND BOWEL MANAGEMENT: Activity did not occur on this shift BOWEL MANAGEMENT - SCORE: 7-IND TRANSFERS: BED, CHAIR, WHEELCHAIR: TRANSFERS: BED, CHAIR, WHEELCHAIR - STEP 1: Does the patient require assistance of a person or device, or need extra time with bed, chair, or whe elchair transfers? Yes. TRANSFERS: BED, CHAIR, WHEELCHAIR - STEP 2: Does the patient require the assistance of a helper? Yes. TRANSFERS: BED, CHAIR, WHEELCHAIR - STEP 3: How much assistance does the patient require from the helper? Steadying/guiding assistance TRANSFERS: BED, CHAIR, WHEELCHAIR - SCORE: 4-MIN TRANSFERS: TOILET: TRANSFERS: TOILET - STEP 1: Does the patient require the assistance of a person or device, or need extra time with toilet transfe rs? Yes. TRANSFERS: TOILET - STEP 2: Does the patient require the assistance of a helper? Yes. TRANSFERS: TOILET - STEP 3: How much assistance does the patient require from the helper? Patient performs half or more of the tr ansferring tasks TRANSFERS: TOILET - STEP 4: Does the patient need only incidental help such as contact guard or steadying during toilet transfer? Yes. TRANSFERS: TOILET - SCORE: 4-MIN TRANSFERS: SHOWER: TRANSFERS: SHOWER - STEP 1: Does the patient require the assistance of a person or device, or need extra time with shower transfe rs? Yes. TRANSFERS: SHOWER - STEP 2: Does the patient require the assistance of a helper? Yes. TRANSFERS: SHOWER - STEP 3: How much assistance does the patient require from the helper? Only incidental help such as contact gu arding or steadying during shower transfers, or help to lift one leg into the shower TRANSFERS: SHOWER - SCORE: 4-MIN TRANSFERS: TUB: Activity did not occur on this shift TRANSFERS: TUB - SCORE: 0-UNK LOCOMOTION: WALK: Activity did not occur on this shift LOCOMOTION: WALK - SCORE: 0-UNK LOCOMOTION: WHEELCHAIR: Activity did not occur on this shift LOCOMOTION: WHEELCHAIR - SCORE: 0-UNK LOCOMOTION: STAIRS: Activity did not occur on this shift LOCOMOTION: STAIRS - SCORE: 0-UNK COMPREHENSION: COMPREHENSION: TYPE: Both COMPREHENSION - SCORE: 0-UNK EXPRESSION EXPRESSION - SCORE: 0-UNK SOCIAL INTERACTION: SOCIAL INTERACTION - SCORE: 0-UNK PROBLEM SOLVING: PROBLEM SOLVING - SCORE: 0-UNK MEMORY: MEMORY - SCORE: 0-UNK SIGNATURE PANEL: The following modified sections: Eating - Score, Eating - Score, Grooming - Score, Bathing - Score, D ressing - Upper Body - Score, Dressing - Upper Body - Score, Dressing - Lower Body - Score, Dressing - Lower Body - Score, Toileting - Score, Transfers: Bed, Chair, Wheelchair - Score, Transfers: Toilet - Score, Transfers: Shower - Score, Transfers: Tub - Score, Comprehension - Score, Expression - Scor e, Social Interaction - Score, Problem Solving - Score, Memory - Score were [electronically] signed ANNY Ferrer on Sat Jun 27 2019 12:42:35 GMT-0500 (Central Daylight Time)
[2019-06-27] MEDS ORDERED: ALBUTEROL 2.5 MG/3 ML NEB SOL NEB PRN (13:00)
[2019-06-27] MEDS ORDERED: IPRATROPIUM BROM 0.5MG/2.5ML NEB PRN (13:00)
[2019-06-27] MEDS: TERAZOSIN HCL 5 MG CAP PO SCH (20:48)
--- NOTE | 2019-06-28 00:45 | FAST ---
SHIFT START DATE/TIME: 06/27/2019 19:00 (CDT) SHIFT END DATE/TIME: 06/28/2019 07:00 (CDT) NAME NABIL MARTI DATE OF : 1945 DATE OF ADMISSION: 06/22/2019 18:11 (CDT) PHONE: AGE: 74 SSN# [id number] GENDER: Male ENCOUNTER PHYSICIAN: Dr. Magdi De Jesus M.D. ADMISSION DIAGNOSIS: - Orthopaedic Disorders 08 - Unilateral Hip Fracture (08.11) RIGHT HIP FRACTURE. EATING: Activity did not occur on this shift EATING - SCORE: 0-UNK GROOMING: Activity did not occur on this shift GROOMING - SCORE: 0-UNK BATHING: Activity did not occur on this shift BATHING - SCORE: 0-UNK DRESSING - UPPER BODY: Patient is not dressing in public clothing ARTICLES SCORE Total number of steps: 0 DRESSING - UPPER BODY - SCORE: 0-UNK DRESSING - LOWER BODY: Patient is not dressing in public clothing ARTICLES SCORE Total number of steps: 0 DRESSING - LOWER BODY - SCORE: 0-UNK TOILETING: TOILETING - STEP 1: Does the patient require the assistance of a person or device, or need extra time with toileting? Yes . TOILETING - STEP 2: Does the patient require the assistance of a helper? Yes. TOILETING - STEP 3: How much assistance does the patient require from the helper? Only supervision TOILETING - SCORE: 5-SUP BLADDER MANAGEMENT: [place] removes incontinent device (Depends, pull ups, etc.); cleans the patient after accident / inco ntinent episode; and, applies new incontinent device. BLADDER MANAGEMENT - SCORE: 1-DEP BOWEL MANAGEMENT: BOWEL MANAGEMENT - STEP 1: Does the patient control bowels completely and intentionally without equipment devices or medications AND is always continent? No. BOWEL MANAGEMENT - STEP 2: Does the patient require the assistance of a helper? No, patient requires medication for control such as stool softeners, suppositories, laxatives, enemas, or OTC medications BOWEL MANAGEMENT - SCORE: 6-SUYAPA TRANSFERS: BED, CHAIR, WHEELCHAIR: Activity did not occur on this shift TRANSFERS: BED, CHAIR, WHEELCHAIR - SCORE: 0-UNK TRANSFERS: TOILET: Activity did not occur on this shift TRANSFERS: TOILET - SCORE: 0-UNK TRANSFERS: SHOWER: Activity did not occur on this shift TRANSFERS: SHOWER - SCORE: 0-UNK TRANSFERS: TUB: Activity did not occur on this shift TRANSFERS: TUB - SCORE: 0-UNK LOCOMOTION: WALK: Activity did not occur on this shift LOCOMOTION: WALK - SCORE: 0-UNK LOCOMOTION: WHEELCHAIR: Activity did not occur on this shift LOCOMOTION: WHEELCHAIR - SCORE: 0-UNK COMPREHENSION: COMPREHENSION: TYPE: Both COMPREHENSION - STEP 1: Does the patient require help from a person or device, or need extra time to understand complex and a bstract ideas (such as current events, finances, discharge planning, medical issues, relationships, e tc)? No. COMPREHENSION - STEP 2: Does the patient need extra time, require an assistive device (such as glasses for visual comprehensi on or a hearing aid for auditory comprehension) or does s/he have mild difficulty understanding compl ex and abstract information? Yes. COMPREHENSION - SCORE: 6-SUYAPA EXPRESSION EXPRESSION: TYPE: Both EXPRESSION - STEP 1: Does the patient require help from a person or device, or need extra time expressing complex and abst ract ideas (such as current events, finances, discharge planning, medical issues, relationships, etc) ? No. EXPRESSION - STEP 2: Does the patient need extra time, require an assistive device (such as augmentive communication syste m or a communication board), OR does s/he have mild difficulty expressing complex and abstract ideas (including mild dysarthria or mild word-find problems)? No. EXPRESSION - SCORE: 7-IND SOCIAL INTERACTION: SOCIAL INTERACTION - STEP 1: Does the patient require a helper to interact with others in social and therapeutic situations? No. SOCIAL INTERACTION - STEP 2: Does the patient need extra time in social situations, OR does s/he interact with staff, other patien ts, and family members ONLY in structured environments, OR does s/he require medication for social in teraction? Yes, patient needs extra time SOCIAL INTERACTION - SCORE: 6-SUYAPA PROBLEM SOLVING: PROBLEM SOLVING - STEP 1: Does the patient need help from a person or device, or need extra time to solve complex problems such as managing a checking account or confronting interpersonal problems? Yes. PROBLEM SOLVING - STEP 2: Does the patient solve basic routine problems half or more of the time? Yes. PROBLEM SOLVING - STEP 3: How often does the patient need help to solve basic routine problems? 10%-24% of the time PROBLEM SOLVING - SCORE: 4-MIN MEMORY: MEMORY - STEP 1: Does the patient need help from a person or device, or need extra time to remember frequently encount ered people, daily routines, and executing requests? No. MEMORY - STEP 2: Does the patient have slight difficulty recognizing frequently encountered people, daily routines, or executing requests without the need for repetition or using self-initiated or environmental cues to remember? Yes. MEMORY - SCORE: 6-SUYAPA SIGNATURE PANEL: The following modified sections: Eating - Score, Grooming - Score, Dressing - Upper Body - Score, Karl ssing - Lower Body - Score, Toileting - Score, Bladder Management - Score, Bowel Management - Score, Transfers: Bed, Chair, Wheelchair - Score, Transfers: Toilet - Score, Transfers: Shower - Score, Miguel sfers: Tub - Score, Locomotion: Walk - Score, Locomotion: Wheelchair - Score, Comprehension - Score, Expression - Score, Social Interaction - Score, Problem Solving - Score, Problem Solving - Score, Mem ory - Score were [electronically] signed by Hazel Miller CNA on Sun Jun 28 2019 00:44:53 GMT-0500 (Central Daylight Time)
[2019-06-28] MEDS: PANTOPRAZOLE 40MG TABLET PO SCH (07:16)
[2019-06-28] MEDS: INSULIN -REGULAR HUMAN 50 UNIT/0.5 ML ML SQ SCH ×4 (07:30→20:45)
[2019-06-28] MEDS: INSULIN GLARGINE 100 UNITS/ML SQ SCH ×2 (07:47→20:45)
[2019-06-28] MEDS: FERROUS SULFATE 325 MG TAB PO SCH (07:48)
[2019-06-28] MEDS: COLCHICINE 0.6 MG TAB PO SCH (07:49)
[2019-06-28] MEDS: FE SULF/FA/VIT B COMP & C TAB PO SCH (07:50)
[2019-06-28] MEDS: hydroCHLOROthiazide 12.5 MG CAP PO SCH (07:50)
[2019-06-28] MEDS: glipiZIDE 5 MG TAB PO SCH ×2 (07:50→17:00)
[2019-06-28] MEDS: AMLODIPINE 5 MG TAB PO SCH (07:51)
[2019-06-28] MEDS: LORATADINE 10 MG TAB PO SCH (07:51)
[2019-06-28] MEDS: METOPROLOL TAR 50 MG TAB PO SCH ×2 (07:51→19:19)
[2019-06-28] MEDS: AZITHROMYCIN 250 MG TAB PO SCH (07:51)
[2019-06-28] MEDS: ASPIRIN EC 81 MG TAB PO SCH (07:51)
[2019-06-28] MEDS: MAGNESIUM OXIDE 400 MG TAB PO SCH ×2 (07:53→19:19)
[2019-06-28] MEDS: NYSTATIN 100MU/GM CREAM 15GM TOP SCH ×2 (08:00→19:20)
[2019-06-28] MEDS: GUAIFENESIN 600 MG SA TAB PO SCH ×2 (08:00→19:20)
[2019-06-28] MEDS: LOSARTAN POTASSIUM 50 MG TABLET PO SCH (08:00)
[2019-06-28] MEDS: BACI/NEOMYCIN/POLY OINT 15GM TOP SCH (08:00)
[2019-06-28] MEDS: MEDIHONEY 44 ML TOPICAL TUBE TOP SCH (09:00)
[2019-06-28] MEDS: ENOXAPARIN 40 MG/0.4 ML SQ SCH (09:04)
[2019-06-28] MEDS: PROMOD 30 ML DOSE PO SCH ×2 (09:05→19:21)
[2019-06-28] MEDS: JUVEN PACKET PO SCH ×2 (09:05→19:21)
[2019-06-28] MEDS: LIDOCAINE 4% PATCH TOP SCH (09:06)
[2019-06-28] MEDS: TRAMADOL HCL 50 MG TAB PO PRN (17:31)
[2019-06-28] MEDS: TERAZOSIN HCL 5 MG CAP PO SCH (20:44)
--- NOTE | 2019-06-29 01:21 | FAST ---
SHIFT START DATE/TIME: 06/28/2019 19:00 (CDT) SHIFT END DATE/TIME: 06/29/2019 07:00 (CDT) NAME NABIL MARTI DATE OF : 1945 DATE OF ADMISSION: 06/22/2019 18:11 (CDT) PHONE: AGE: 74 SSN# [id number] GENDER: Male ENCOUNTER PHYSICIAN: Dr. Magdi De Jesus M.D. ADMISSION DIAGNOSIS: - Orthopaedic Disorders 08 - Unilateral Hip Fracture (08.11) RIGHT HIP FRACTURE. EATING: Activity did not occur on this shift EATING - SCORE: 0-UNK GROOMING: Activity did not occur on this shift GROOMING - SCORE: 0-UNK BATHING: Activity did not occur on this shift BATHING - SCORE: 0-UNK DRESSING - UPPER BODY: Patient is not dressing in public clothing ARTICLES SCORE Total number of steps: 0 DRESSING - UPPER BODY - SCORE: 0-UNK DRESSING - LOWER BODY: Patient is not dressing in public clothing ARTICLES SCORE Total number of steps: 0 DRESSING - LOWER BODY - SCORE: 0-UNK TOILETING: TOILETING - STEP 1: Does the patient require the assistance of a person or device, or need extra time with toileting? Yes . TOILETING - STEP 2: Does the patient require the assistance of a helper? Yes. TOILETING - STEP 3: How much assistance does the patient require from the helper? Only supervision TOILETING - SCORE: 5-SUP BLADDER MANAGEMENT: [place] removes incontinent device (Depends, pull ups, etc.); cleans the patient after accident / inco ntinent episode; and, applies new incontinent device. BLADDER MANAGEMENT - SCORE: 1-DEP BOWEL MANAGEMENT: BOWEL MANAGEMENT - STEP 1: Does the patient control bowels completely and intentionally without equipment devices or medications AND is always continent? No. BOWEL MANAGEMENT - STEP 2: Does the patient require the assistance of a helper? No, patient requires medication for control such as stool softeners, suppositories, laxatives, enemas, or OTC medications BOWEL MANAGEMENT - SCORE: 6-SUYAPA TRANSFERS: BED, CHAIR, WHEELCHAIR: Activity did not occur on this shift TRANSFERS: BED, CHAIR, WHEELCHAIR - SCORE: 0-UNK TRANSFERS: TOILET: Activity did not occur on this shift TRANSFERS: TOILET - SCORE: 0-UNK TRANSFERS: SHOWER: Activity did not occur on this shift TRANSFERS: SHOWER - SCORE: 0-UNK TRANSFERS: TUB: Activity did not occur on this shift TRANSFERS: TUB - SCORE: 0-UNK LOCOMOTION: WALK: Activity did not occur on this shift LOCOMOTION: WALK - SCORE: 0-UNK LOCOMOTION: WHEELCHAIR: Activity did not occur on this shift LOCOMOTION: WHEELCHAIR - SCORE: 0-UNK COMPREHENSION: COMPREHENSION: TYPE: Both COMPREHENSION - STEP 1: Does the patient require help from a person or device, or need extra time to understand complex and a bstract ideas (such as current events, finances, discharge planning, medical issues, relationships, e tc)? No. COMPREHENSION - STEP 2: Does the patient need extra time, require an assistive device (such as glasses for visual comprehensi on or a hearing aid for auditory comprehension) or does s/he have mild difficulty understanding compl ex and abstract information? Yes. COMPREHENSION - SCORE: 6-SUYAPA EXPRESSION EXPRESSION: TYPE: Both EXPRESSION - STEP 1: Does the patient require help from a person or device, or need extra time expressing complex and abst ract ideas (such as current events, finances, discharge planning, medical issues, relationships, etc) ? No. EXPRESSION - STEP 2: Does the patient need extra time, require an assistive device (such as augmentive communication syste m or a communication board), OR does s/he have mild difficulty expressing complex and abstract ideas (including mild dysarthria or mild word-find problems)? No. EXPRESSION - SCORE: 7-IND SOCIAL INTERACTION: SOCIAL INTERACTION - STEP 1: Does the patient require a helper to interact with others in social and therapeutic situations? No. SOCIAL INTERACTION - STEP 2: Does the patient need extra time in social situations, OR does s/he interact with staff, other patien ts, and family members ONLY in structured environments, OR does s/he require medication for social in teraction? Yes, patient needs extra time SOCIAL INTERACTION - SCORE: 6-SUYAPA PROBLEM SOLVING: PROBLEM SOLVING - STEP 1: Does the patient need help from a person or device, or need extra time to solve complex problems such as managing a checking account or confronting interpersonal problems? Yes. PROBLEM SOLVING - STEP 2: Does the patient solve basic routine problems half or more of the time? Yes. PROBLEM SOLVING - STEP 3: How often does the patient need help to solve basic routine problems? 10%-24% of the time PROBLEM SOLVING - SCORE: 4-MIN MEMORY: MEMORY - STEP 1: Does the patient need help from a person or device, or need extra time to remember frequently encount ered people, daily routines, and executing requests? No. MEMORY - STEP 2: Does the patient have slight difficulty recognizing frequently encountered people, daily routines, or executing requests without the need for repetition or using self-initiated or environmental cues to remember? Yes. MEMORY - SCORE: 6-SUYAPA SIGNATURE PANEL: The following modified sections: Eating - Score, Grooming - Score, Dressing - Upper Body - Score, Karl ssing - Lower Body - Score, Toileting - Score, Bladder Management - Score, Bowel Management - Score, Transfers: Bed, Chair, Wheelchair - Score, Transfers: Toilet - Score, Transfers: Shower - Score, Miguel sfers: Tub - Score, Locomotion: Walk - Score, Locomotion: Wheelchair - Score, Comprehension - Score, Expression - Score, Social Interaction - Score, Problem Solving - Score, Memory - Score were [electro nically] signed by Hazel Miller CNA on SatJun 29 2019 01:20:59 GMT-0500 (Central Daylight Time)
[2019-06-29] MEDS: PANTOPRAZOLE 40MG TABLET PO SCH (06:45)
[2019-06-29] MEDS: ENOXAPARIN 40 MG/0.4 ML SQ SCH (07:06)
[2019-06-29] MEDS: INSULIN -REGULAR HUMAN 50 UNIT/0.5 ML ML SQ SCH ×4 (07:30→20:00)
[2019-06-29] MEDS: LIDOCAINE 4% PATCH TOP SCH (07:39)
[2019-06-29] MEDS: hydroCHLOROthiazide 12.5 MG CAP PO SCH (07:40)
[2019-06-29] MEDS: AZITHROMYCIN 250 MG TAB PO SCH (07:40)
[2019-06-29] MEDS: COLCHICINE 0.6 MG TAB PO SCH (07:40)
[2019-06-29] MEDS: LOSARTAN POTASSIUM 50 MG TABLET PO SCH (07:40)
[2019-06-29] MEDS: GUAIFENESIN 600 MG SA TAB PO SCH ×2 (07:40→19:50)
[2019-06-29] MEDS: FE SULF/FA/VIT B COMP & C TAB PO SCH (07:41)
[2019-06-29] MEDS: METOPROLOL TAR 50 MG TAB PO SCH ×2 (07:41→19:49)
[2019-06-29] MEDS: FERROUS SULFATE 325 MG TAB PO SCH (07:41)
[2019-06-29] MEDS: LORATADINE 10 MG TAB PO SCH (07:41)
[2019-06-29] MEDS: AMLODIPINE 5 MG TAB PO SCH (07:41)
[2019-06-29] MEDS: INSULIN GLARGINE 100 UNITS/ML SQ SCH ×2 (07:41→20:00)
[2019-06-29] MEDS: MAGNESIUM OXIDE 400 MG TAB PO SCH ×2 (07:41→19:49)
[2019-06-29] MEDS: glipiZIDE 5 MG TAB PO SCH ×2 (07:41→16:20)
[2019-06-29] MEDS: ASPIRIN EC 81 MG TAB PO SCH (07:41)
[2019-06-29] MEDS: JUVEN PACKET PO SCH ×2 (07:42→19:49)
[2019-06-29] MEDS: PROMOD 30 ML DOSE PO SCH ×2 (07:42→19:49)
[2019-06-29] MEDS: NYSTATIN 100MU/GM CREAM 15GM TOP SCH (07:42)
[2019-06-29] MEDS: BACI/NEOMYCIN/POLY OINT 15GM TOP SCH (07:42)
[2019-06-29] MEDS: MEDIHONEY 44 ML TOPICAL TUBE TOP SCH (07:42)
[2019-06-29 09:55] LABS: Absolute Lymphocytes (CBC) 2.1 K/uL (0.7-4.9); Basophils % 0.8 % (0-1.3); Lymphocytes % 17.6 % (15.3-44.8); RBC Red Blood Cell Count 3.79 M/uL (4.33-5.43)
[2019-06-29 10:07] LABS: Albumin 2.4 g/dL (3.4-5.0); Bilirubin Direct 0.1 mg/dL (0-0.2); Bilirubin Total 0.3 mg/dL (0.2-1.0); Protein, Total 7.2 g/dL (6.4-8.2)
[2019-06-29] MEDS: DOXYCYCLINE 100 MG CAP PO SCH ×2 (14:02→19:53)
--- NOTE | 2019-06-29 15:50 | RAD REPORT ---
EXAM DESCRIPTION: RAD CHEST SINGLE VIEW CLINICAL HISTORY: Chest pain, sepsis. COMPARISON: 06/25/2019 TECHNIQUE: Portable chest. FINDINGS: Haziness is present in the right lung base likely representing a small pleural effusion. Calcified pleural plaques are seen bilaterally compatible with prior asbestos exposure, A small opacity in the medial right lung base appears unchanged probably a small area of atelectasis or infiltrate. The heart is normal in size. IMPRESSION: Stable chest since the 06/25/2019 study.
--- NOTE | 2019-06-29 17:15 | R.PN ---
ENCOUNTER DATE AND TIME: 06/29/2019 17:14 (CDT) NAME NABIL MARTI DATE OF : 1945 DATE OF ADMISSION: 06/22/2019 18:11 (CDT) RIGHT HIP FRACTURECHIEF COMPLAINT: Right hip fracture SUBJECTIVE: Pt denied any depression. Pt denied any Shortness of Breath. He has less bilateral knee pain after 5% lidoderm patches were placed. He is making good overall prog ress with physical and occupational therapy. VITAL SIGNS Temperature: 97.8 F SBP/DBP: 145/75 Pulse: 77 Resp: 16 MEDICATION ALLERGIES: No Known Drug Allergies (NKDA) ENVIRONMENTAL ALLERGIES: None Known - Substance Allergies None Known - Other Allergies None Known NURSING: - Shower allowing shower - Lab Results blood Sugar Check ACHS - Skin care per protocol PRECAUTIONS: - Posterior Hip Precaution No adduction across midline No external rotation No hip flexion >90 degrees No internal rotation No wheel chair propulsion - Weight Bearing Precaution WBAT right LE ACTIVITIES OOB only with supervision THERAPIES: - Dietary and Nutrition Adequate Nutrition. Nutritional Education. Nutritional Supplements. PHYSICAL EXAM - Gen Alert and awake Lying in bed No apparent distress Oriented to: person, time, and place - Skin Right hip incision intact No abnormalities - Eyes No abnormalities - ENMT No abnormalities - Neck No abnormalities - CVS RRR - Chest No abnormalities - Resp Clear to auscultation - Abd Soft - GI nondistended Deferred - No abnormalities - Ext Mild bilateral lower extremity edema. - MSK 4+/5 weakness in both lower extremities. - Neuro No focal deficits - Psych No abnormalities ASSESSMENT: Pt. is a 74 yo Right-handed white male.On 06/20/2019 he was admitted to [facility] with diagnosis RIGHT HIP FRACTURE.His impairment category is Orthopaedic Disorders 08 - Unilater al Hip Fracture (08.11).Pre-morbidly, Pt. was independent/mod-I in Self-Care, Sphincter Control, Miguel sfers Control, Locomotion, Communication, and Social Cognition; and he had good Sphincter Control.Cur rently, he has deficits of Self-Care, Transfers Control, Locomotion, Endurance, Balance, and Safety A wareness.Pt. is now referred to [facility] for acute in-patient rehabilitation in order to maximize patient's functional independence in activities of daily living, strength, ROM, and mobility.- Rehab Goal Patient has realistic goal of being discharged at assistance level 6-[place] to reside at Home with Fam delmy/Relatives. MDM/PLAN: - Physical Therapy Decreased range of motion - to improve, our physical therapists will perform initial evaluation of p t's status upon admission and devise an individualized program for increasing patient's Range of Patricio on. Gait dysfunction - to improve, our physical therapists will perform initial evaluation of pt's statu s upon admission and devise an individualized program for Gait Training, and Wheel Chair mobility Inability to transfer - to improve, our physical therapists will perform initial evaluation of pt's status upon admission and devise an individualized program for Bed mobility Need for home safety evaluation - to improve, our physical therapists will perform initial evaluatio n of pt's status upon admission and devise an individualized program for Home Evaluation Need in caregiver upon discharge - to improve, our physical therapists will perform initial evaluati on of pt's status upon admission and devise an individualized program for Caregiver Training Edema - to improve, our physical therapists will perform initial evaluation of pt's status upon admi ssion and devise an individualized program for Elevation Training, and Lymphedema Therapy New precaution - to improve, our physical therapists will perform initial evaluation of pt's status upon admission and devise an individualized program for Patient precaution education Poor balance - to improve, our physical therapists will perform initial evaluation of pt's status up on admission and devise an individualized program for Balance Training Poor endurance - to improve, our physical therapists will perform initial evaluation of pt's status upon admission and devise an individualized program for Endurance Training Weakness - to improve, our physical therapists will perform initial evaluation of pt's status upon a dmission and devise an individualized program for Aquatic Therapy, Neuromuscular Reeducation, and Str engthening Achieving independence - to improve, our physical therapists will perform initial evaluation of pt's status upon admission and devise an individualized program for Community Reintegration Activities - Occupational Therapy ADL deficits - to improve, our occupation therapists will perform initial evaluation of pt's status upon admission and devise an individualized program for Bathing, Bed mobility, Community Reintegratio n, Cooking, Dressing, Eating, Fine Motor Skills, Grooming, Homemaking, Kitchen Mobility, Laundry, Pat ient Education, Safety Awareness, Splinting - Positioning, Transfers(Toilet, Tub, Shower), and Wheel Chair Management Need for health care administrator - to improve, our occupation therapists will perform initial evaluation of pt's status upon admission and devise an individualized program for Caregiver Training Weakness - to improve, our occupation therapists will perform initial evaluation of pt's status upon admission and devise an individualized program for Aquatic Therapy, Balance, Endurance, UE ROM, and UE strengthening - Other See attached MAR (Medication Administration Record) See attached MAR (Medication Administration Record) Nabil Marti.pdf - Anterior Hip Precaution No abduction No active extension No adduction across midline No external rotation No hip flexion >90 degrees No internal rotation - Diet - Liquid Texture Continue Regular - Tube Feed Continue N/A - Diet Type Continue Regular - Posterior Hip Precaution No adduction across midline No external rotation No hip flexion >90 degrees No internal rotation No wheel chair propulsion - Lab Results blood Sugar Check ACHS - Weight Bearing Precaution WBAT right LE - Skin care per protocol - Diet - Solid Texture Continue Regular - Shower allowing shower FUNCTIONAL STATUS: UPDATED AT WEEKLY TEAM CONFERENCE - Bladder Same accident frequency: 7-Ind - No accidents in the past 7 days - Bowel Same accident frequency: 7-Ind - No accidents in the past 7 days - Walking Same score based on distance walked: 1(<=50ft) - Wheelchair Same score based on distance traveled: 0(N/A) FUNCTIONAL STATUS: - Self-Care A. Eating sup B. Grooming sup C. Bathing modA D. Dressing - Upper modA E. Dressing - Lower maxA F. Toileting maxA - Sphincter Control G: Bladder control Ind H: Bowel control Ind - Transfers Control I. Bed/Chair/Wheelchair maxA J. Toilet maxA K. Tub/Shower ADNO - Locomotion L. Walk/Wheelchair (C) maxA L. Walk/Wheelchair (W) maxA M. Stairs ADNO - Communication N. Comprehension (B) Ind O. Expression (B) Ind - Social Cognition P. Social Interaction Ind Q. Problem Solving Ind R. Memory Ind - Endurance Poor - Balance Fair - Safety Awareness Fair CURRENT FUNC. DEFICITS: Self-Care, Transfers Control, Locomotion, Endurance, Balance, and Safety Awareness SIGNATURE PANEL: (CDT)
[2019-06-29 19:24] LABS: Urine Appearance CLEAR; Urine Bilirubin NEGATIVE (NEG); Urine Blood 1+ (NEG); Urine Color YELLOW; Urine Glucose NEGATIVE (NEG); Urine Protein NEGATIVE (NEG); Urine Specific Gravity 1.015 (1.005-1.030); Urine Urobilinogen 0.2 mg/dL (0.2-1.0)
[2019-06-29] MEDS: TERAZOSIN HCL 5 MG CAP PO SCH (19:50)
[2019-06-29] MEDS: TRAMADOL HCL 50 MG TAB PO PRN (19:50)
[2019-06-29 19:55] LABS: Urine Microscopic Reflex ORDER UMIC
[2019-06-29] MEDS: NYSTATIN PWDR 100000 UNIT/GM TOP SCH (20:00)
[2019-06-29 20:02] LABS: Urine Bacteria <20 /HPF (NONE SEEN); Urine Culture Reflex Order REFLEXED
--- NOTE | 2019-06-29 20:31 | CON ---
Date of Consultation: 06/29/2019 Reason For Consultation: Elevated lactate level, staph infection. Code status: Full History Of Present Illness: Patient is a 74-year-old male with past medical history of hypertension, hyperlipidemia, diabetes, BPH, who was admitted to the inpatient rehab facility after being treated for pneumonia in the hospital. Patient was found to have pneumonia and also had some drainage from his [facility] His cultures at that time grew out Staph haemolyticus and wound cultures from the left heel grew out Enterococcus faecalis. Patient has been seen by Dr. Rodríguez with General Surgery for heel wounds, has had debridement as well as local care done. Patient's chest x-ray has shown improvement, however, patient's lactate has been elevated, was 4.3, improved to 2.9. His procalcitonin is negative. There are no signs of sepsis, however, white count is still elevated at 12,000. Patient's kidney function has improved, however, still elevated at 1.33. Repeat blood cultures are pending at this time. Patient himself denies any specific symptoms. Does report decreased p.o. intake. States does not stay hydrated. Due to his severe osteoarthritis he is wanting a cup instead of the pitcher from which to drink. Patient otherwise denies any pain. Symptoms are constant, moderate, stable. Past Medical History: Hypertension, hyperlipidemia, diabetes mellitus type 2, insulin requiring, benign prostatic hyperplasia, osteoarthritis, obesity. Surgical History: Amputation of the left second and third toe, appendectomy, cholecystectomy, right hip replacement recently. Allergies: NO KNOWN DRUG ALLERGIES. Medications: List reviewed. Social History: Patient denies any tobacco use, alcohol use, or illicit drug use. Family History: Denies any premature coronary artery disease in the family. Physical Examination: Vital Signs: Temperature 97.6, heart rate 91, blood pressure 140/67, respirations 16, O2 95% on room air. General: Awake, alert, oriented x3. Elderly male, obese, BMI 31. HEENT: Normocephalic, atraumatic. PERRL, EOMI. Dry mucous membranes. Oropharynx is clear. Poor dentition. Conjunctivae anicteric. Neck: Supple. No JVD. Trachea midline. CV: S1, S2. Peripheral pulses present. Respiratory: Moving air well bilaterally. No wheezing or stridor. Gastrointestinal: Abdomen is soft, nontender, nondistended. Positive bowel sounds. No guarding or rigidity. Extremities: No clubbing or cyanosis. Patient does have peripheral edema. Neurologic: Nonfocal. Skin: Patient has minimal opening of the right hip incision site with no active drainage. Laboratory Data: Sodium 140, potassium 4, chloride 106, CO2 25, BUN 34, creatinine 1.33, glucose 209, lactate 4.3, repeat lactate is 2.9, calcium 9. Procalcitonin less than 0.05, WBC 12, H and H 9.7 and 31, platelets 527, neutrophils 69%. Blood cultures repeated pending. Right hip wound cultures from the growing out Staph haemolyticus, wound from the left heel growing out Enterococcus faecalis. Assessment And Plan: A 74-year-old male with; 1. Metabolic acidosis related to acute infection, dehydration. We will continue with fluids, encourage increased p.o. intake. 2. Staphylococcus haemolyticus infection in recent cultures from hip wound. We will start on doxycycline. 3. Bilateral pneumonia, cleared, improved. Patient was treated with IV antibiotics in the inpatient setting. Repeat chest x-ray is clear. 4. Anemia of chronic disease. 5. Diabetes mellitus type 2 insulin requiring with hyperglycemia. We will continue to monitor and continue home medications. 6. Acute kidney injury, likely related to above, dehydration. Continue with increased fluids. 7. Essential hypertension, stable. 8. Fatty liver disease, stable. 9. Benign prostatic hypertrophy. Thank you, we will follow along with. We will repeat lactate in a.m. /NAINA Voice ID: [id number] Report ID: [id number] [facility]
[2019-06-30] MEDS: ENOXAPARIN 40 MG/0.4 ML SQ SCH (06:45)
[2019-06-30] MEDS: PANTOPRAZOLE 40MG TABLET PO SCH (06:45)
[2019-06-30] MEDS: LIDOCAINE 4% PATCH TOP SCH (06:46)
[2019-06-30] MEDS: NYSTATIN PWDR 100000 UNIT/GM TOP SCH ×2 (06:46→19:42)
[2019-06-30] MEDS: INSULIN -REGULAR HUMAN 50 UNIT/0.5 ML ML SQ SCH ×4 (07:30→19:49)
[2019-06-30] MEDS: INSULIN GLARGINE 100 UNITS/ML SQ SCH ×2 (07:47→19:48)
[2019-06-30] MEDS: JUVEN PACKET PO SCH ×2 (07:49→19:41)
[2019-06-30] MEDS: PROMOD 30 ML DOSE PO SCH ×2 (07:49→19:41)
[2019-06-30] MEDS: MAGNESIUM OXIDE 400 MG TAB PO SCH ×2 (07:51→19:41)
[2019-06-30] MEDS: DOXYCYCLINE 100 MG CAP PO SCH ×2 (07:51→19:40)
[2019-06-30] MEDS: AMLODIPINE 5 MG TAB PO SCH (07:52)
[2019-06-30] MEDS: COLCHICINE 0.6 MG TAB PO SCH (07:52)
[2019-06-30] MEDS: FE SULF/FA/VIT B COMP & C TAB PO SCH (07:52)
[2019-06-30] MEDS: glipiZIDE 5 MG TAB PO SCH ×2 (07:52→17:06)
[2019-06-30] MEDS: LORATADINE 10 MG TAB PO SCH (07:53)
[2019-06-30] MEDS: FERROUS SULFATE 325 MG TAB PO SCH (07:53)
[2019-06-30] MEDS: ASPIRIN EC 81 MG TAB PO SCH (07:53)
[2019-06-30] MEDS: hydroCHLOROthiazide 12.5 MG CAP PO SCH (07:53)
[2019-06-30] MEDS: GUAIFENESIN 600 MG SA TAB PO SCH ×2 (07:53→19:41)
[2019-06-30] MEDS: LOSARTAN POTASSIUM 50 MG TABLET PO SCH (07:53)
[2019-06-30] MEDS: TRAMADOL HCL 50 MG TAB PO PRN (07:54)
[2019-06-30] MEDS: METOPROLOL TAR 50 MG TAB PO SCH ×2 (07:54→19:40)
[2019-06-30] MEDS: BACI/NEOMYCIN/POLY OINT 15GM TOP SCH (10:38)
[2019-06-30] MEDS: MEDIHONEY 44 ML TOPICAL TUBE TOP SCH (10:38)
[2019-06-30] MEDS ORDERED: NA CHLORIDE 0.9% 1,000 ML IV ONE (14:00)
[2019-06-30 17:44] LABS: Absolute Lymphocytes (CBC) 2.7 K/uL (0.7-4.9); Basophils % 0.4 % (0-1.3); Hematocrit 29.6 % (39.6-49.0); Lymphocytes % 16.7 % (15.3-44.8); MPV 6.8 fL (7.6-11.3)
[2019-06-30 17:48] LABS: Potassium 4.5 mmol/L (3.5-5.1)
[2019-06-30] MEDS: TERAZOSIN HCL 5 MG CAP PO SCH (19:40)
--- NOTE | 2019-06-30 21:25 | PN ---
Date of Progress Note: 06/30/2019 Subjective: Patient is seen and examined. Chart reviewed and case discussed with RN. Patient does not appear to be in any acute distress. Working well with physical therapy. Medications: List reviewed. Physical Examination: Vital Signs: Heart rate 88, blood pressure 140/63, respirations 16, O2 94% on room air. General: Awake, alert, and oriented x3, not in any acute distress. CV: S1 and S2. Regular rate. Peripheral pulses present. Respiratory: Moving air well bilaterally. No wheezing. Gastrointestinal: Abdomen is soft, nontender, nondistended. Positive bowel sounds. Extremities: No clubbing, cyanosis, or edema. Neurologic: Nonfocal. Skin: Patient has wound on the left heel as well as healing incision site on the right hip. Laboratory Data: Repeat lactate is 3.4 and 3.6. Repeat blood cultures are pending. Patient is grow ing Staph haemolyticus from the wound in the right hip and Enterococcus faecalis from the wound on th e left heel. Assessment And Plan: A 74-year-old male with: 1.Metabolic acidosis secondary to acute infection and dehydration, resolving. 2.Staph haemolyticus infection from culture from the right hip wound. We will continue doxycycline. 3.Metabolic acidosis, may be related to exertion. We will check CBC, CMP, kidney function. We will give bolus 1 L normal saline. 4.Bilateral pneumonia, resolved. Chest x-ray is clear. 5.Anemia of chronic disease. H and H are stable. 6.Diabetes mellitus type 2, insulin requiring with hyperglycemia. We will continue with home medica tions. 7.Acute kidney injury. Continue to push fluids. We will obtain BMP. 8.Essential hypertension, stable. 9.Fatty liver disease, stable. 10.Benign prostatic hyperplasia, stable. SA/MODL Voice ID: [id number] Report ID: [id number]
--- NOTE | 2019-06-30 22:21 | R.PN ---
ENCOUNTER DATE AND TIME: 06/30/2019 22:19 (CDT) NAME NABIL MARTI DATE OF : 1945 DATE OF ADMISSION: 06/22/2019 18:11 (CDT) RIGHT HIP FRACTURECHIEF COMPLAINT: Right hip fracture SUBJECTIVE: Pt denied any depression. Pt denied any Shortness of Breath. He has less bilateral knee pain after 5% lidoderm patches were placed. He is making good overall prog ress with physical and occupational therapy. VITAL SIGNS Temperature: 97.8 F SBP/DBP: 154/83 Pulse: 82 Resp: 16 MEDICATION ALLERGIES: No Known Drug Allergies (NKDA) ENVIRONMENTAL ALLERGIES: None Known - Substance Allergies None Known - Other Allergies None Known NURSING: - Shower allowing shower - Lab Results blood Sugar Check ACHS - Skin care per protocol PRECAUTIONS: - Posterior Hip Precaution No adduction across midline No external rotation No hip flexion >90 degrees No internal rotation No wheel chair propulsion - Weight Bearing Precaution WBAT right LE ACTIVITIES OOB only with supervision THERAPIES: - Dietary and Nutrition Adequate Nutrition. Nutritional Education. Nutritional Supplements. PHYSICAL EXAM - Gen Alert and awake Lying in bed No apparent distress Oriented to: person, time, and place - Skin Right hip incision intact No abnormalities - Eyes No abnormalities - ENMT No abnormalities - Neck No abnormalities - CVS RRR - Chest No abnormalities - Resp Clear to auscultation - Abd Soft - GI nondistended Deferred - No abnormalities - Ext Mild bilateral lower extremity edema. - MSK 4+/5 weakness in both lower extremities. - Neuro No focal deficits - Psych No abnormalities ASSESSMENT: Pt. is a 74 yo Right-handed white male.On 06/20/2019 he was admitted to [facility] with diagnosis RIGHT HIP FRACTURE.His impairment category is Orthopaedic Disorders 08 - Unilater al Hip Fracture (08.11).Pre-morbidly, Pt. was independent/mod-I in Self-Care, Sphincter Control, Miguel sfers Control, Locomotion, Communication, and Social Cognition; and he had good Sphincter Control.Cur rently, he has deficits of Self-Care, Transfers Control, Locomotion, Endurance, Balance, and Safety A wareness.Pt. is now referred to [facility] for acute in-patient rehabilitation in order to maximize patient's functional independence in activities of daily living, strength, ROM, and mobility.- Rehab Goal Patient has realistic goal of being discharged at assistance level 6-[place] to reside at Home with Fam delmy/Relatives. MDM/PLAN: - Physical Therapy Decreased range of motion - to improve, our physical therapists will perform initial evaluation of p t's status upon admission and devise an individualized program for increasing patient's Range of Patricio on. Gait dysfunction - to improve, our physical therapists will perform initial evaluation of pt's statu s upon admission and devise an individualized program for Gait Training, and Wheel Chair mobility Inability to transfer - to improve, our physical therapists will perform initial evaluation of pt's status upon admission and devise an individualized program for Bed mobility Need for home safety evaluation - to improve, our physical therapists will perform initial evaluatio n of pt's status upon admission and devise an individualized program for Home Evaluation Need in caregiver upon discharge - to improve, our physical therapists will perform initial evaluati on of pt's status upon admission and devise an individualized program for Caregiver Training Edema - to improve, our physical therapists will perform initial evaluation of pt's status upon admi ssion and devise an individualized program for Elevation Training, and Lymphedema Therapy New precaution - to improve, our physical therapists will perform initial evaluation of pt's status upon admission and devise an individualized program for Patient precaution education Poor balance - to improve, our physical therapists will perform initial evaluation of pt's status up on admission and devise an individualized program for Balance Training Poor endurance - to improve, our physical therapists will perform initial evaluation of pt's status upon admission and devise an individualized program for Endurance Training Weakness - to improve, our physical therapists will perform initial evaluation of pt's status upon a dmission and devise an individualized program for Aquatic Therapy, Neuromuscular Reeducation, and Str engthening Achieving independence - to improve, our physical therapists will perform initial evaluation of pt's status upon admission and devise an individualized program for Community Reintegration Activities - Occupational Therapy ADL deficits - to improve, our occupation therapists will perform initial evaluation of pt's status upon admission and devise an individualized program for Bathing, Bed mobility, Community Reintegratio n, Cooking, Dressing, Eating, Fine Motor Skills, Grooming, Homemaking, Kitchen Mobility, Laundry, Pat ient Education, Safety Awareness, Splinting - Positioning, Transfers(Toilet, Tub, Shower), and Wheel Chair Management Need for pharmacy care coordinator - to improve, our occupation therapists will perform initial evaluation of pt's status upon admission and devise an individualized program for Caregiver Training Weakness - to improve, our occupation therapists will perform initial evaluation of pt's status upon admission and devise an individualized program for Aquatic Therapy, Balance, Endurance, UE ROM, and UE strengthening - Other See attached MAR (Medication Administration Record) See attached MAR (Medication Administration Record) Nabil Marti.pdf - Anterior Hip Precaution No abduction No active extension No adduction across midline No external rotation No hip flexion >90 degrees No internal rotation - Diet - Liquid Texture Continue Regular - Tube Feed Continue N/A - Diet Type Continue Regular - Posterior Hip Precaution No adduction across midline No external rotation No hip flexion >90 degrees No internal rotation No wheel chair propulsion - Lab Results blood Sugar Check ACHS - Weight Bearing Precaution WBAT right LE - Skin care per protocol - Diet - Solid Texture Continue Regular - Shower allowing shower FUNCTIONAL STATUS: UPDATED AT WEEKLY TEAM CONFERENCE - Bladder Same accident frequency: 7-Ind - No accidents in the past 7 days - Bowel Same accident frequency: 7-Ind - No accidents in the past 7 days - Walking Same score based on distance walked: 1(<=50ft) - Wheelchair Same score based on distance traveled: 0(N/A) FUNCTIONAL STATUS: - Self-Care A. Eating sup B. Grooming sup C. Bathing modA D. Dressing - Upper modA E. Dressing - Lower maxA F. Toileting maxA - Sphincter Control G: Bladder control Ind H: Bowel control Ind - Transfers Control I. Bed/Chair/Wheelchair maxA J. Toilet maxA K. Tub/Shower ADNO - Locomotion L. Walk/Wheelchair (C) maxA L. Walk/Wheelchair (W) maxA M. Stairs ADNO - Communication N. Comprehension (B) Ind O. Expression (B) Ind - Social Cognition P. Social Interaction Ind Q. Problem Solving Ind R. Memory Ind - Endurance Poor - Balance Fair - Safety Awareness Fair CURRENT FUNC. DEFICITS: Self-Care, Transfers Control, Locomotion, Endurance, Balance, and Safety Awareness SIGNATURE PANEL: (CDT)
[2019-07-01] MEDS: PANTOPRAZOLE 40MG TABLET PO SCH (06:38)
[2019-07-01] MEDS: ENOXAPARIN 40 MG/0.4 ML SQ SCH (06:39)
[2019-07-01] MEDS: INSULIN -REGULAR HUMAN 50 UNIT/0.5 ML ML SQ SCH ×4 (07:30→21:00)
[2019-07-01] MEDS: INSULIN GLARGINE 100 UNITS/ML SQ SCH ×2 (07:50→21:09)
[2019-07-01] MEDS: TRAMADOL HCL 50 MG TAB PO PRN (07:51)
[2019-07-01] MEDS: DOXYCYCLINE 100 MG CAP PO SCH ×2 (07:52→19:43)
[2019-07-01] MEDS: AMLODIPINE 5 MG TAB PO SCH (07:52)
[2019-07-01] MEDS: FERROUS SULFATE 325 MG TAB PO SCH (07:52)
[2019-07-01] MEDS: ASPIRIN EC 81 MG TAB PO SCH (07:53)
[2019-07-01] MEDS: MAGNESIUM OXIDE 400 MG TAB PO SCH ×2 (07:53→19:43)
[2019-07-01] MEDS: FE SULF/FA/VIT B COMP & C TAB PO SCH (07:53)
[2019-07-01] MEDS: glipiZIDE 5 MG TAB PO SCH ×2 (07:53→17:07)
[2019-07-01] MEDS: METOPROLOL TAR 50 MG TAB PO SCH ×2 (07:54→19:42)
[2019-07-01] MEDS: hydroCHLOROthiazide 12.5 MG CAP PO SCH (07:54)
[2019-07-01] MEDS: LORATADINE 10 MG TAB PO SCH (07:54)
[2019-07-01] MEDS: LOSARTAN POTASSIUM 50 MG TABLET PO SCH (07:55)
[2019-07-01] MEDS: COLCHICINE 0.6 MG TAB PO SCH (07:55)
[2019-07-01] MEDS: GUAIFENESIN 600 MG SA TAB PO SCH ×2 (07:55→19:43)
[2019-07-01] MEDS: JUVEN PACKET PO SCH ×2 (07:55→19:44)
[2019-07-01] MEDS: PROMOD 30 ML DOSE PO SCH ×2 (07:55→19:44)
[2019-07-01] MEDS: LIDOCAINE 4% PATCH TOP SCH (08:23)
[2019-07-01] MEDS: NYSTATIN PWDR 100000 UNIT/GM TOP SCH ×2 (08:24→19:44)
[2019-07-01] MEDS: BACI/NEOMYCIN/POLY OINT 15GM TOP SCH (09:14)
[2019-07-01] MEDS: MEDIHONEY 44 ML TOPICAL TUBE TOP SCH (09:14)
[2019-07-01] MEDS ORDERED: SODIUM CHLORIDE 0.9% 10ML INJ IV SCH (20:00)
[2019-07-01] MEDS: SODIUM CHLORIDE 0.9% 10ML INJ IV SCH (20:00)
--- NOTE | 2019-07-01 20:15 | PN ---
Date of Progress Note: 07/01/2019 Subjective: Patient is seen and examined. Chart reviewed and case discussed with RN and Dr. Devin rosario. Patient appears to be in no acute distress. Working well with physical therapy. Medication List: Reviewed. Physical Examination: Vital Signs: Temperature 98.8, heart rate 100, blood pressure 145/73, respirations 16, O2 96% on carlos m air. General: Awake, alert, oriented x3. No acute distress. Obese male. BMI 31. CV: S1, S2. Sinus tachycardia. Peripheral pulses present. Respiratory: Moving air well bilaterally. Abdomen: Soft, nontender, nondistended. Positive bowel sounds. Extremities: No clubbing, cyanosis, edema. Neurologic: Nonfocal. Skin: Patient has bilateral heel ulcers. Right heel has black eschar. Left heel has tendon exposed , but no apparent signs of infection, bandaged. Laboratory Data: WBC count from 06/30 is 16.3, lactate now down to 1.5, H and H 9.6 and 39.6, platel ets 516, neutrophils 69%. Cultures from 06/22/2019, right hip wound Staphylococcus haemolyticus and left heel wound Enterococcus faecalis both sensitive to tetracycline. Assessment And Plan: A 74-year-old male with: 1.Metabolic acidosis, improving lactate, now normalized. 2.Staphylococcus hemolyticus infection from right hip wound. Continue doxycycline. Patient also booker s elevated white blood cell count. 3.Anemia of chronic disease. Monitor H and H. Continue with iron supplementation. Transfuse as ne eded. 4.Bilateral heel wounds with Enterococcus faecalis growing from the left, status post debridement by Dr. Rodríguez. 5.Diabetes mellitus type 2, insulin requiring with hyperglycemia. We will continue home medications . Monitor Accu-Cheks. 6.Acute kidney injury. Creatinine is around 1.47. We will continue to monitor. 7.Essential hypertension, stable. 8.Fatty liver disease, stable. 9.Benign prostatic hyperplasia, stable. Clinically, patient does not appear septic or have any signs of acute infection. We will continue do xycycline for a total of 10 days. Patient states he was previously found to have elevated white bloo d cell count with unknown etiology, may have myelodysplastic syndrome. If continues to be elevated, we will send out for peripheral blood smear. /NAINA Voice ID: [id number] Report ID: [id number]
[2019-07-01] MEDS: TERAZOSIN HCL 5 MG CAP PO SCH (21:08)
[2019-07-02 06:47] LABS: Absolute Lymphocytes (CBC) 2.1 K/uL (0.7-4.9); Basophils % 0.9 % (0-1.3); Hematocrit 28.2 % (39.6-49.0); Lymphocytes % 18.6 % (15.3-44.8); MPV 6.4 fL (7.6-11.3); RBC Red Blood Cell Count 3.55 M/uL (4.33-5.43)
[2019-07-02 07:09] LABS: Albumin 2.3 g/dL (3.4-5.0); Magnesium 1.5 mg/dL (1.8-2.4); Potassium 4.3 mmol/L (3.5-5.1)
[2019-07-02] MEDS: INSULIN -REGULAR HUMAN 50 UNIT/0.5 ML ML SQ SCH ×4 (07:30→20:04)
[2019-07-02] MEDS: PANTOPRAZOLE 40MG TABLET PO SCH (07:55)
[2019-07-02] MEDS: LIDOCAINE 4% PATCH TOP SCH (07:56)
[2019-07-02] MEDS: hydroCHLOROthiazide 12.5 MG CAP PO SCH (07:56)
[2019-07-02] MEDS: ENOXAPARIN 40 MG/0.4 ML SQ SCH (07:56)
[2019-07-02] MEDS: GUAIFENESIN 600 MG SA TAB PO SCH ×2 (07:57→20:02)
[2019-07-02] MEDS: DOXYCYCLINE 100 MG CAP PO SCH ×2 (07:57→20:03)
[2019-07-02] MEDS: LORATADINE 10 MG TAB PO SCH (07:57)
[2019-07-02] MEDS: FE SULF/FA/VIT B COMP & C TAB PO SCH (07:57)
[2019-07-02] MEDS: glipiZIDE 5 MG TAB PO SCH ×2 (07:57→17:00)
[2019-07-02] MEDS: FERROUS SULFATE 325 MG TAB PO SCH (07:58)
[2019-07-02] MEDS: METOPROLOL TAR 50 MG TAB PO SCH ×2 (07:58→20:02)
[2019-07-02] MEDS: PROMOD 30 ML DOSE PO SCH ×3 (07:58→20:00)
[2019-07-02] MEDS: COLCHICINE 0.6 MG TAB PO SCH (07:58)
[2019-07-02] MEDS: ASPIRIN EC 81 MG TAB PO SCH (07:58)
[2019-07-02] MEDS: LOSARTAN POTASSIUM 50 MG TABLET PO SCH (07:58)
[2019-07-02] MEDS: AMLODIPINE 5 MG TAB PO SCH (07:58)
[2019-07-02] MEDS: SODIUM CHLORIDE 0.9% 10ML INJ IV SCH ×2 (07:59→20:00)
[2019-07-02] MEDS: MAGNESIUM OXIDE 400 MG TAB PO SCH ×2 (07:59→20:00)
[2019-07-02] MEDS: INSULIN GLARGINE 100 UNITS/ML SQ SCH ×2 (08:01→20:04)
[2019-07-02] MEDS: JUVEN PACKET PO SCH ×2 (08:01→20:00)
[2019-07-02] MEDS: NYSTATIN PWDR 100000 UNIT/GM TOP SCH ×2 (09:00→20:03)
[2019-07-02] MEDS: TRAMADOL HCL 50 MG TAB PO PRN (10:57)
[2019-07-02] MEDS: MEDIHONEY 44 ML TOPICAL TUBE TOP SCH (14:59)
[2019-07-02] MEDS: BACI/NEOMYCIN/POLY OINT 15GM TOP SCH (14:59)
[2019-07-02] MEDS: TERAZOSIN HCL 5 MG CAP PO SCH (20:44)
[2019-07-03] MEDS: PANTOPRAZOLE 40MG TABLET PO SCH (06:50)
[2019-07-03] MEDS: ENOXAPARIN 40 MG/0.4 ML SQ SCH (06:50)
[2019-07-03] MEDS: MAGNESIUM OXIDE 400 MG TAB PO SCH ×3 (06:51→17:14)
[2019-07-03] MEDS: FERROUS SULFATE 325 MG TAB PO SCH (06:51)
[2019-07-03] MEDS: LIDOCAINE 4% PATCH TOP SCH (06:51)
[2019-07-03] MEDS: GUAIFENESIN 600 MG SA TAB PO SCH ×2 (06:52→20:37)
[2019-07-03] MEDS: FE SULF/FA/VIT B COMP & C TAB PO SCH (06:52)
[2019-07-03] MEDS: COLCHICINE 0.6 MG TAB PO SCH (06:52)
[2019-07-03] MEDS: DOXYCYCLINE 100 MG CAP PO SCH ×2 (06:52→20:37)
[2019-07-03] MEDS: ASPIRIN EC 81 MG TAB PO SCH (06:52)
[2019-07-03] MEDS: LORATADINE 10 MG TAB PO SCH (06:52)
[2019-07-03] MEDS: glipiZIDE 5 MG TAB PO SCH ×2 (06:56→17:13)
[2019-07-03] MEDS: LOSARTAN POTASSIUM 50 MG TABLET PO SCH (06:56)
[2019-07-03] MEDS: AMLODIPINE 5 MG TAB PO SCH (06:56)
[2019-07-03] MEDS: hydroCHLOROthiazide 12.5 MG CAP PO SCH (06:57)
[2019-07-03] MEDS: INSULIN -REGULAR HUMAN 50 UNIT/0.5 ML ML SQ SCH ×4 (06:57→20:38)
[2019-07-03] MEDS: INSULIN GLARGINE 100 UNITS/ML SQ SCH ×2 (06:57→20:37)
[2019-07-03] MEDS: JUVEN PACKET PO SCH ×2 (06:58→20:36)
[2019-07-03] MEDS: MEDIHONEY 44 ML TOPICAL TUBE TOP SCH (07:00)
[2019-07-03] MEDS: METOPROLOL TAR 50 MG TAB PO SCH ×2 (07:00→20:36)
[2019-07-03] MEDS: BACI/NEOMYCIN/POLY OINT 15GM TOP SCH (07:01)
[2019-07-03] MEDS: NYSTATIN PWDR 100000 UNIT/GM TOP SCH ×2 (07:01→20:00)
[2019-07-03] MEDS: PROMOD 30 ML DOSE PO SCH ×2 (07:01→20:36)
[2019-07-03] MEDS: SODIUM CHLORIDE 0.9% 10ML INJ IV SCH (08:00)
--- NOTE | 2019-07-03 09:23 | P.RH.PN ---
Estimated Length of Stay: 16 Expected Discharge Date: 07/07/19 Discharge Disposition Plan: Home Family Support: Yes [facility] Goal: Mobility, Transfers, Self Care Vital Signs: Last Vital Signs Temp 97.4 F 07/03/19 07:17 Pulse 85 07/03/19 07:17 Resp 14 07/03/19 07:17 BP 142/66 H 07/03/19 07:17 Pulse Ox 95 07/03/19 07:17 Laboratory: Laboratory Last Values WBC 11.6 K/uL (4.3-10.9) H D 07/02/19 06:37 RBC 3.55 M/uL (4.33-5.43) L 07/02/19 06:37 Hgb 9.1 g/dL (13.6-17.9) L 07/02/19 06:37 Hct 28.2 % (39.6-49.0) L 07/02/19 06:37 MCV 79.3 fL (80-100) L 07/02/19 06:37 MCH 25.5 pg (27.0-35.0) L 07/02/19 06:37 MCHC 32.1 g/dL (32.0-36.0) 07/02/19 06:37 RDW 18.2 % (12.1-15.2) H 07/02/19 06:37 Plt Count 472 K/uL (152-406) H 07/02/19 06:37 MPV 6.4 fL (7.6-11.3) L 07/02/19 06:37 Neutrophils % 66.6 % (41.7-73.7) 07/02/19 06:37 Lymphocytes % 18.6 % (15.3-44.8) 07/02/19 06:37 Monocytes % 8.3 % (3.3-12.3) 07/02/19 06:37 Eosinophils % 5.6 % (0-4.4) H 07/02/19 06:37 Basophils % 0.9 % (0-1.3) 07/02/19 06:37 Absolute Neutrophils 7.7 K/uL (1.8-8.0) 07/02/19 06:37 Absolute Lymphocytes 2.1 K/uL (0.7-4.9) 07/02/19 06:37 Absolute Monocytes 1.0 K/uL (0.1-1.3) 07/02/19 06:37 Absolute Eosinophils 0.7 K/uL (0-0.5) H 07/02/19 06:37 Absolute Basophils 0.1 K/uL (0-0.5) 07/02/19 06:37 Sodium 143 mmol/L (136-145) 07/02/19 06:37 Potassium 4.3 mmol/L (3.5-5.1) 07/02/19 06:37 Chloride 110 mmol/L (98-107) H 07/02/19 06:37 Carbon Dioxide 28 mmol/L (21-32) 07/02/19 06:37 BUN 37 mg/dL (7-18) H 07/02/19 06:37 Creatinine 1.13 mg/dL (0.55-1.3) 07/02/19 06:37 Estimated GFR 63 mL/min (=/>90) L 07/02/19 06:37 Glucose 93 mg/dL (74-106) 07/02/19 06:37 POC Glucose 131 mg/dl (65-120) H 07/02/19 20:02 Lactic Acid 1.5 mmol/L (0.4-2.0) 06/30/19 20:20 Calcium 8.9 mg/dL (8.5-10.1) 07/02/19 06:37 Magnesium 1.5 mg/dL (1.8-2.4) L D 07/02/19 06:37 Total Bilirubin 0.3 mg/dL (0.2-1.0) 06/29/19 09:33 Direct Bilirubin 0.1 mg/dL (0-0.2) 06/29/19 09:33 AST 19 U/L (15-37) 06/29/19 09:33 ALT 31 U/L (12-78) 06/29/19 09:33 Alkaline Phosphatase 128 U/L (45-117) H 06/29/19 09:33 Serum Total Protein 7.2 g/dL (6.4-8.2) 06/29/19 09:33 Albumin 2.3 g/dL (3.4-5.0) L 07/02/19 06:37 Globulin 4.8 g/dL (2.3-3.5) H 06/29/19 09:33 Albumin/Globulin Ratio 0.5 (1.1-1.8) L 06/29/19 09:33 Prealbumin 15.0 mg/dL (20-40) L 07/02/19 06:37 Amylase 56 U/L (25-115) 06/29/19 09:33 Lipase 228 U/L (73-393) 06/29/19 09:33 Procalcitonin < 0.05 ng/mL (<0.50) 06/29/19 09:33 Urine Color Yellow 06/29/19 18:45 Urine Appearance Clear 06/29/19 18:45 Urine pH 5.0 (5.0-7.0) 06/29/19 18:45 Ur Specific [place] 1.015 (1.005-1.030) 06/29/19 18:45 Urine Ketones Negative (NEG) 06/29/19 18:45 Urine Blood 1+ (NEG) H 06/29/19 18:45 Urine Nitrite Negative (NEG) 06/29/19 18:45 Urine Bilirubin Negative (NEG) 06/29/19 18:45 Urine Urobilinogen 0.2 mg/dL (0.2-1.0) 06/29/19 18:45 Ur Leukocyte Esterase Negative (NEG) 06/29/19 18:45 Urine RBC 5-10 /HPF (NONE SEEN) H 06/29/19 18:45 Urine WBC 5-10 /HPF (<5) H 06/29/19 18:45 Ur Squamous Epith Cells <5 /HPF (NONE SEEN) 06/29/19 18:45 Urine Bacteria <20 /HPF (NONE SEEN) 06/29/19 18:45 Urine Culture Reflexed Reflexed 06/29/19 18:45 Urine Glucose Negative (NEG) 06/29/19 18:45 Urine Total Protein Negative (NEG) 06/29/19 18:45 Weight: 226 lb 3.2 oz Wound Present: Yes Closed Surgical Incision Present: Yes Negative Pressure Wound Therapy Present: No Physician Update: Low magnesium of 1.5. Will increase magnesium to 800 mg twice daily. His WBCs and mildly elevated. Doing better with occupational therapy. He is a supervision with mobilization using wheelchair and walker. Medical Issues: Patient has stage 2 diabetic ulcer on left heel, applied medihoney daily.On right heel, stage 2 partial thickness applied with neosporin daily. Patient's bladder incontinence is less than daily and bowel continence is always continent. Pain Issues: Tramadol 50mg Q6H PO PRN. Lidoderm patch 5% Daily to both knees Functional Improvement: Patient has progressed very well w/ each day of therapy. Patient's B knee are a hinderance to patient's progress, however patient continues to travel further each day, and shows marked improvement w/ technique in transfers and gait each session. Functional Improvement Occupational Therapy: Cont to educate and train pt on dressing/bathing tasks, using A/E as needed for safety and due to hip precautions. cont to educate and train pt on toilet hygiene and clothing mgmt/ bathing. Cont to increase pt's UB strength and static standing for functional transfers and bathing tasks. Summary: Patient's care plan and halfway goals have been reviewed and revised as necessary. Please see the Rehabilitation Signature page for all necessary signatures.
--- NOTE | 2019-07-03 18:27 | P.PN ---
Subjective Date of Service: 07/03/19 Subjective: No new changes Review of Systems 10-point ROS is otherwise unremarkable Physical Examination - Vital Signs Temperature: 97.4 F Blood Pressure: 142/66 Pulse: 85 Respirations: 14 Pulse Ox (%): 95 - Physical Exam General: Alert, In no apparent distress, Oriented x3, Obese HEENT: Atraumatic, PERRLA, EOMI Neck: Supple, JVD not distended Respiratory: Clear to auscultation bilaterally, Normal air movement Cardiovascular: Regular rate/rhythm, Normal S1 S2 Gastrointestinal: Normal bowel sounds, Soft and benign, Non-distended, No tenderness Musculoskeletal: No tenderness Integumentary: No rashes, Skin lesion (Bilateral heel ulcers) Neurological: Normal speech, Normal tone, Normal affect Lymphatics: No axilla or inguinal lymphadenopathy - Studies Medications List Reviewed: Yes Assessment And Plan - Plan 1. Metabolic acidosis, improving. lactate, now normalized. 2. Staphylococcus hemolyticus infection from right hip wound. Continue doxycycline. WBCs improving 3. Anemia of chronic disease. Monitor H and H. Continue with iron supplementation. Transfuse as needed. 4. Bilateral heel wounds with Enterococcus faecalis growing from the left, status post debridement by Dr. Rodríguez. 5. Diabetes mellitus type 2, insulin requiring with hyperglycemia. We will continue home medications. Monitor Accu-Cheks. 6. Acute kidney injury. Creatinine is around 1.47. We will continue to monitor. 7. Essential hypertension, stable. 8. Fatty liver disease, stable. 9. Benign prostatic hyperplasia, stable.
--- NOTE | 2019-07-03 19:04 | PN ---
Date of Progress Note: 07/02/2019 Subjective: Patient seen and examined. Chart reviewed and case discussed with RN. No acute events overnight. Patient did report some drainage from his left heel with PT. Medications List: Reviewed. Physical Examination: Vital Signs: Temperature 97.4, heart rate 83, blood pressure 140/66, respirations 16, O2 95% on room air. General: Awake, alert, oriented x3, not in any acute distress. CV: S1 and S2. No murmurs. Respiratory: Moving air well bilaterally. No wheezing or stridor. No use of accessory muscles. Gastrointestinal: Abdomen is soft, nontender, nondistended. Positive bowel sounds. Extremities: No clubbing, cyanosis, or edema. Neurologic: Nonfocal. Skin: Patient has wounds on bilateral heels. Right heel has black eschar formation. Left heel has tendon exposed with some minimal drainage. No erythema. No tenderness to palpation. No signs of ac tive infection. No necrotic tissue present. Laboratory Data: Sodium 143, potassium 4.3, chloride 110, CO2 of 28, BUN 37, creatinine 1.13, glucos e 93, calcium 8.9, magnesium 1.5, albumin 2.3. WBC 11.6, hemoglobin and hematocrit 9.1 and 28.2, janee telets 472, neutrophils 66%. Blood cultures, no growth to date. Assessment And Plan: A 74-year-old male with: 1.Staphylococcus hemolyticus infection from right hip wound. Continue doxycycline. White blood mili l count trended down. 2.Bilateral heel wound with Enterococcus faecalis growing from the left, status post debridement by Dr. Rodríguez, also sensitive to tetracycline. Continue with Kwan. 3.Anemia of chronic disease. Continue to monitor H and H. Continue iron supplementation. 4.Hypomagnesemia, replace and monitor. 5.Diabetes mellitus type 2, insulin requiring with hyperglycemia. Continue Accu-Cheks and oral hypo glycemics. 6.Acute kidney injury. Kidney function is now normalized. Continue to push IV. Continue patient o n p.o. fluids. 7.Essential hypertension, stable. 8.Fatty liver disease, stable. 9.Benign prostatic hyperplasia, stable. Plan: Continue doxycycline. We will discuss case with Dr. Rodríguez regarding left heel. Continue with his wound care instructions, [place], and would recommend the patient to have outpatient hematolog y followup for peripheral blood smear to rule out myelodysplastic syndrome. SA/MODL Voice ID: [id number] Report ID: [id number]
[2019-07-03] MEDS: TERAZOSIN HCL 5 MG CAP PO SCH (20:37)
[2019-07-04] MEDS: MAGNESIUM OXIDE 400 MG TAB PO SCH ×2 (05:07→17:00)
[2019-07-04] MEDS: PANTOPRAZOLE 40MG TABLET PO SCH (06:36)
[2019-07-04] MEDS: ENOXAPARIN 40 MG/0.4 ML SQ SCH (06:36)
[2019-07-04] MEDS: LIDOCAINE 4% PATCH TOP SCH (06:37)
[2019-07-04] MEDS: INSULIN -REGULAR HUMAN 50 UNIT/0.5 ML ML SQ SCH ×4 (07:30→19:45)
[2019-07-04] MEDS: PROMOD 30 ML DOSE PO SCH ×2 (08:00→19:45)
[2019-07-04] MEDS: JUVEN PACKET PO SCH ×2 (08:00→19:43)
[2019-07-04] MEDS: INSULIN GLARGINE 100 UNITS/ML SQ SCH ×2 (08:12→19:46)
[2019-07-04] MEDS: TRAMADOL HCL 50 MG TAB PO PRN ×3 (08:13→21:12)
[2019-07-04] MEDS: DOXYCYCLINE 100 MG CAP PO SCH ×2 (08:14→19:44)
[2019-07-04] MEDS: FERROUS SULFATE 325 MG TAB PO SCH (08:14)
[2019-07-04] MEDS: GUAIFENESIN 600 MG SA TAB PO SCH ×2 (08:14→19:44)
[2019-07-04] MEDS: FE SULF/FA/VIT B COMP & C TAB PO SCH (08:14)
[2019-07-04] MEDS: LORATADINE 10 MG TAB PO SCH (08:14)
[2019-07-04] MEDS: hydroCHLOROthiazide 12.5 MG CAP PO SCH (08:14)
[2019-07-04] MEDS: COLCHICINE 0.6 MG TAB PO SCH (08:15)
[2019-07-04] MEDS: AMLODIPINE 5 MG TAB PO SCH (08:15)
[2019-07-04] MEDS: glipiZIDE 5 MG TAB PO SCH ×2 (08:15→16:59)
[2019-07-04] MEDS: METOPROLOL TAR 50 MG TAB PO SCH ×2 (08:15→19:44)
[2019-07-04] MEDS: LOSARTAN POTASSIUM 50 MG TABLET PO SCH (08:15)
[2019-07-04] MEDS: ASPIRIN EC 81 MG TAB PO SCH (08:16)
[2019-07-04] MEDS: NYSTATIN PWDR 100000 UNIT/GM TOP SCH ×2 (09:39→19:42)
[2019-07-04] MEDS: MEDIHONEY 44 ML TOPICAL TUBE TOP SCH (09:40)
[2019-07-04] MEDS: BACI/NEOMYCIN/POLY OINT 15GM TOP SCH (09:40)
[2019-07-04] MEDS: TERAZOSIN HCL 5 MG CAP PO SCH (19:45)
[2019-07-05] MEDS: MAGNESIUM OXIDE 400 MG TAB PO SCH ×2 (05:08→17:15)
[2019-07-05] MEDS: ENOXAPARIN 40 MG/0.4 ML SQ SCH (06:27)
[2019-07-05] MEDS: PANTOPRAZOLE 40MG TABLET PO SCH (06:27)
[2019-07-05] MEDS: NYSTATIN PWDR 100000 UNIT/GM TOP SCH ×2 (06:28→19:22)
[2019-07-05] MEDS: LIDOCAINE 4% PATCH TOP SCH (06:28)
[2019-07-05] MEDS: INSULIN -REGULAR HUMAN 50 UNIT/0.5 ML ML SQ SCH ×4 (07:30→20:20)
[2019-07-05] MEDS: JUVEN PACKET PO SCH ×2 (08:00→19:22)
[2019-07-05] MEDS: PROMOD 30 ML DOSE PO SCH ×2 (08:00→19:23)
[2019-07-05] MEDS: INSULIN GLARGINE 100 UNITS/ML SQ SCH ×2 (08:31→20:19)
[2019-07-05] MEDS: AMLODIPINE 5 MG TAB PO SCH (08:32)
[2019-07-05] MEDS: ASPIRIN EC 81 MG TAB PO SCH (08:32)
[2019-07-05] MEDS: glipiZIDE 5 MG TAB PO SCH ×2 (08:33→15:55)
[2019-07-05] MEDS: FERROUS SULFATE 325 MG TAB PO SCH (08:33)
[2019-07-05] MEDS: LOSARTAN POTASSIUM 50 MG TABLET PO SCH (08:33)
[2019-07-05] MEDS: hydroCHLOROthiazide 12.5 MG CAP PO SCH (08:33)
[2019-07-05] MEDS: DOXYCYCLINE 100 MG CAP PO SCH ×2 (08:33→19:22)
[2019-07-05] MEDS: METOPROLOL TAR 50 MG TAB PO SCH ×2 (08:34→19:23)
[2019-07-05] MEDS: GUAIFENESIN 600 MG SA TAB PO SCH ×2 (08:34→19:23)
[2019-07-05] MEDS: COLCHICINE 0.6 MG TAB PO SCH (08:34)
[2019-07-05] MEDS: LORATADINE 10 MG TAB PO SCH (08:34)
[2019-07-05] MEDS: FE SULF/FA/VIT B COMP & C TAB PO SCH (08:34)
[2019-07-05] MEDS: TRAMADOL HCL 50 MG TAB PO PRN (08:35)
[2019-07-05] MEDS: MEDIHONEY 44 ML TOPICAL TUBE TOP SCH (08:40)
[2019-07-05] MEDS: BACI/NEOMYCIN/POLY OINT 15GM TOP SCH (08:40)
[2019-07-05] MEDS: TERAZOSIN HCL 5 MG CAP PO SCH (19:22)
--- NOTE | 2019-07-05 20:59 | PN ---
Date of Progress Note: 07/05/2019 Subjective: Patient seen and examined. Chart reviewed and case discussed with RN. Medications List: Reviewed. Physical Examination: Vital Signs: Temperature 97.4, heart rate 84, blood pressure 131/59, respirations 18, O2 of 95% on r oom air. General: Awake, alert, oriented x3, not in any acute distress, obese male. CV: S1, S2. No murmurs. Respiratory: Moving air well bilaterally. Abdomen: Soft, nontender, nondistended. Positive bowel sounds. Extremities: No clubbing, cyanosis, or edema. Neurologic: Nonfocal. Skin: Right heel has a necrotic eschar. No drainage. Left heel has an exposed tendon. No drainage . No signs of acute infection. No erythema. Laboratory Data: Blood glucose levels between 180 and 103. Repeat blood cultures, no growth to date . Urine culture, no growth to date. Assessment And Plan: A 74-year-old male with: 1.Metabolic acidosis, resolved. 2.Staphylococcus haemolyticus infection in the right hip wound. We will continue doxycycline for a total of 10 days, improving. 3.Anemia of chronic disease. Monitor H and H. 4.Bilateral heel wounds with Enterococcus faecalis growing from the left side, status post debrideme nt on the right. Continue wound care. 5.Diabetes mellitus type 2, insulin requiring with hyperglycemia. Continue on oral hypoglycemics. 6.Acute kidney injury. Creatinine normalized. Continue to monitor. 7.Essential hypertension, stable. 8.Fatty liver disease, stable. 9.Obesity, counseled. 10.BPH, stable. SA/MODL Voice ID: [id number] Report ID: [id number]
[2019-07-06] MEDS: MAGNESIUM OXIDE 400 MG TAB PO SCH ×2 (05:07→17:26)
[2019-07-06] MEDS: ENOXAPARIN 40 MG/0.4 ML SQ SCH (06:15)
[2019-07-06] MEDS: PANTOPRAZOLE 40MG TABLET PO SCH (06:15)
[2019-07-06] MEDS: INSULIN -REGULAR HUMAN 50 UNIT/0.5 ML ML SQ SCH ×4 (07:30→20:12)
[2019-07-06] MEDS: JUVEN PACKET PO SCH ×2 (08:00→20:00)
[2019-07-06] MEDS: PROMOD 30 ML DOSE PO SCH ×2 (08:00→20:00)
[2019-07-06] MEDS: INSULIN GLARGINE 100 UNITS/ML SQ SCH ×2 (08:15→20:11)
[2019-07-06] MEDS: AMLODIPINE 5 MG TAB PO SCH (08:16)
[2019-07-06] MEDS: TRAMADOL HCL 50 MG TAB PO PRN (08:18)
[2019-07-06] MEDS: DOXYCYCLINE 100 MG CAP PO SCH ×2 (08:19→20:07)
[2019-07-06] MEDS: ASPIRIN EC 81 MG TAB PO SCH (08:19)
[2019-07-06] MEDS: FERROUS SULFATE 325 MG TAB PO SCH (08:19)
[2019-07-06] MEDS: GUAIFENESIN 600 MG SA TAB PO SCH ×2 (08:19→20:07)
[2019-07-06] MEDS: glipiZIDE 5 MG TAB PO SCH ×2 (08:19→16:40)
[2019-07-06] MEDS: hydroCHLOROthiazide 12.5 MG CAP PO SCH (08:19)
[2019-07-06] MEDS: LOSARTAN POTASSIUM 50 MG TABLET PO SCH (08:20)
[2019-07-06] MEDS: LORATADINE 10 MG TAB PO SCH (08:20)
[2019-07-06] MEDS: METOPROLOL TAR 50 MG TAB PO SCH ×2 (08:20→20:00)
[2019-07-06] MEDS: COLCHICINE 0.6 MG TAB PO SCH (08:20)
[2019-07-06] MEDS: FE SULF/FA/VIT B COMP & C TAB PO SCH (08:21)
[2019-07-06] MEDS: BACI/NEOMYCIN/POLY OINT 15GM TOP SCH (09:30)
[2019-07-06] MEDS: MEDIHONEY 44 ML TOPICAL TUBE TOP SCH (09:30)
[2019-07-06] MEDS: NYSTATIN PWDR 100000 UNIT/GM TOP SCH ×2 (09:30→20:07)
[2019-07-06] MEDS: LIDOCAINE 4% PATCH TOP SCH (09:30)
[2019-07-06] MEDS: TERAZOSIN HCL 5 MG CAP PO SCH (21:00)
--- NOTE | 2019-07-06 22:14 | PN ---
Date of Progress Note: 07/06/2019 Subjective: Patient seen and examined, chart reviewed, and case discussed with RN. Patient denies a ny acute events overnight. No complaints. Medications: List reviewed. Physical Examination: Vital Signs: Temperature 97.4, heart rate 90, blood pressure 146/59, respirations 16, O2 96% on room air. General: Awake, alert, oriented x3, no acute distress. CV: S1-S2. Respiratory: Moving air well bilaterally. Abdomen: Soft, nontender, nondistended. Positive bowel sounds. Extremities: No clubbing or cyanosis. Patient has some peripheral edema. Neurologic: Nonfocal. Skin: The patient has bilateral heel ulcerations, bandage clean, dry, and intact. Laboratory Data: Glucose is 149. Cultures; no growth to date. Assessment And Plan: A 74-year-old male with; 1.Metabolic acidosis, resolved. 2.Staphylococcus haemolyticus infection right hip wound. Continue doxycycline for a total of 10 day s. Currently on day 7. 3.Anemia of chronic disease, stable. 4.Bilateral heel wounds with Enterococcus faecalis growing from the left side, status post debrideme nt on the right. We will continue wound care. Follow up with Dr. Rodríguez [facility] oint[facility] is for tomorrow. 5.Diabetes mellitus type 2 insulin requiring with hyperglycemia. We will continue oral hypoglycemic s. 6.Acute kidney injury, resolved. 7.Essential hypertension, stable. 8.Fatty liver disease, stable. 9.Obesity, counseled. 10.Benign prostatic hyperplasia, stable. Plan; we will follow at a distance reconsult as needed. /NAINA Voice ID: [id number] Report ID: [id number]
[2019-07-07] MEDS: MAGNESIUM OXIDE 400 MG TAB PO SCH ×2 (05:34→17:12)
[2019-07-07] MEDS: PANTOPRAZOLE 40MG TABLET PO SCH (05:34)
[2019-07-07] MEDS: LIDOCAINE 4% PATCH TOP SCH (07:05)
[2019-07-07] MEDS: ENOXAPARIN 40 MG/0.4 ML SQ SCH (07:05)
[2019-07-07] MEDS: INSULIN -REGULAR HUMAN 50 UNIT/0.5 ML ML SQ SCH ×4 (07:17→21:00)
[2019-07-07] MEDS: PROMOD 30 ML DOSE PO SCH ×2 (08:00→20:00)
[2019-07-07] MEDS: BACI/NEOMYCIN/POLY OINT 15GM TOP SCH (08:00)
[2019-07-07] MEDS: JUVEN PACKET PO SCH ×2 (08:00→20:00)
[2019-07-07] MEDS: MEDIHONEY 44 ML TOPICAL TUBE TOP SCH (08:00)
[2019-07-07] MEDS: NYSTATIN PWDR 100000 UNIT/GM TOP SCH ×2 (08:00→20:04)
[2019-07-07] MEDS: COLCHICINE 0.6 MG TAB PO SCH (08:01)
[2019-07-07] MEDS: glipiZIDE 5 MG TAB PO SCH ×2 (08:01→17:12)
[2019-07-07] MEDS: DOXYCYCLINE 100 MG CAP PO SCH ×2 (08:01→20:03)
[2019-07-07] MEDS: LORATADINE 10 MG TAB PO SCH (08:01)
[2019-07-07] MEDS: AMLODIPINE 5 MG TAB PO SCH (08:02)
[2019-07-07] MEDS: GUAIFENESIN 600 MG SA TAB PO SCH ×2 (08:03→20:03)
[2019-07-07] MEDS: hydroCHLOROthiazide 12.5 MG CAP PO SCH (08:03)
[2019-07-07] MEDS: FERROUS SULFATE 325 MG TAB PO SCH (08:03)
[2019-07-07] MEDS: ASPIRIN EC 81 MG TAB PO SCH (08:03)
[2019-07-07] MEDS: METOPROLOL TAR 50 MG TAB PO SCH ×2 (08:03→20:03)
[2019-07-07] MEDS: LOSARTAN POTASSIUM 50 MG TABLET PO SCH (08:04)
[2019-07-07] MEDS: FE SULF/FA/VIT B COMP & C TAB PO SCH (08:04)
[2019-07-07] MEDS: INSULIN GLARGINE 100 UNITS/ML SQ SCH ×2 (08:04→21:08)
[2019-07-07] MEDS: TERAZOSIN HCL 5 MG CAP PO SCH (21:09)
[2019-07-07] MEDS: TRAMADOL HCL 50 MG TAB PO PRN (21:55)
[2019-07-08] MEDS: MAGNESIUM OXIDE 400 MG TAB PO SCH ×2 (05:32→17:01)
[2019-07-08] MEDS: PANTOPRAZOLE 40MG TABLET PO SCH (05:33)
[2019-07-08] MEDS: INSULIN -REGULAR HUMAN 50 UNIT/0.5 ML ML SQ SCH ×4 (07:30→20:00)
[2019-07-08] MEDS: ENOXAPARIN 40 MG/0.4 ML SQ SCH (07:47)
[2019-07-08] MEDS: INSULIN GLARGINE 100 UNITS/ML SQ SCH ×2 (07:47→20:00)
[2019-07-08] MEDS: PROMOD 30 ML DOSE PO SCH ×2 (08:00→19:59)
[2019-07-08] MEDS: MEDIHONEY 44 ML TOPICAL TUBE TOP SCH (08:00)
[2019-07-08] MEDS: BACI/NEOMYCIN/POLY OINT 15GM TOP SCH (08:00)
[2019-07-08] MEDS: NYSTATIN PWDR 100000 UNIT/GM TOP SCH ×2 (08:00→20:01)
[2019-07-08] MEDS: JUVEN PACKET PO SCH ×2 (08:00→19:58)
[2019-07-08] MEDS: LIDOCAINE 4% PATCH TOP SCH (08:24)
[2019-07-08] MEDS: GUAIFENESIN 600 MG SA TAB PO SCH ×2 (08:25→19:59)
[2019-07-08] MEDS: COLCHICINE 0.6 MG TAB PO SCH (08:25)
[2019-07-08] MEDS: ASPIRIN EC 81 MG TAB PO SCH (08:26)
[2019-07-08] MEDS: METOPROLOL TAR 50 MG TAB PO SCH ×2 (08:26→19:58)
[2019-07-08] MEDS: glipiZIDE 5 MG TAB PO SCH ×2 (08:27→17:01)
[2019-07-08] MEDS: AMLODIPINE 5 MG TAB PO SCH (08:27)
[2019-07-08] MEDS: LOSARTAN POTASSIUM 50 MG TABLET PO SCH (08:27)
[2019-07-08] MEDS: DOXYCYCLINE 100 MG CAP PO SCH ×2 (08:28→19:58)
[2019-07-08] MEDS: FE SULF/FA/VIT B COMP & C TAB PO SCH (08:28)
[2019-07-08] MEDS: hydroCHLOROthiazide 12.5 MG CAP PO SCH (08:28)
[2019-07-08] MEDS: FERROUS SULFATE 325 MG TAB PO SCH (08:29)
[2019-07-08] MEDS: LORATADINE 10 MG TAB PO SCH (08:29)
[2019-07-08] MEDS ORDERED: NYSTATIN 100MU/GM CREAM 15GM TOP PRN (14:37)
--- NOTE | 2019-07-08 16:55 | FAST ---
SHIFT START DATE/TIME: 07/08/2019 07:00 (CDT) SHIFT END DATE/TIME: 07/08/2019 19:00 (CDT) NAME NABIL MARTI DATE OF : 1945 DATE OF ADMISSION: 06/22/2019 18:11 (CDT) PHONE: AGE: 74 N# [id number] GENDER: Male ENCOUNTER PHYSICIAN: Dr. Magdi De Jesus M.D. ADMISSION DIAGNOSIS: - Orthopaedic Disorders 08 - Unilateral Hip Fracture (08.11) RIGHT HIP FRACTURE. EATING: EATING - STEP 1: Does the patient complete the activity by him/herself with no assistance (physical, verbal/nonverbal cueing, setup/clean-up)? Yes. 1. [id number] ADMISSION PERFORMANCE: Independent CODE: 06 ORAL HYGIENE: ORAL HYGIENE - STEP 1: Does the patient complete the activity by him/herself with no assistance (physical, verbal/nonverbal cueing, setup/clean-up)? Yes. 1. [id number] ADMISSION PERFORMANCE: Independent CODE: 06 TOILETING HYGIENE: TOILETING HYGIENE - STEP 1: Does the patient complete the activity by him/herself with no assistance (physical, verbal/nonverbal cueing, setup/clean-up)? No. TOILETING HYGIENE - STEP 2: Does the patient need only setup/clean-up assistance from one helper? No. TOILETING HYGIENE - STEP 3: Does the patient need only verbal/nonverbal cueing or touching/steadying/contact guard assistance fro m one helper? Yes. 1. [id number] ADMISSION PERFORMANCE: Supervision or touching assistance CODE: 04 BATHING: Not assessed/no information CODE: - DRESSING - UPPER BODY: Not assessed/no information CODE: - DRESSING - LOWER BODY: DRESSING - LOWER BODY - STEP 1: Does the patient complete the activity by him/herself with no assistance (physical, verbal/nonverbal cueing, setup/clean-up)? No. DRESSING - LOWER BODY - STEP 2: Does the patient need only setup/clean-up assistance from one helper? No. DRESSING - LOWER BODY - STEP 3: Does the patient need only verbal/nonverbal cueing or touching/steadying/contact guard assistance fro m one helper? No. DRESSING - LOWER BODY - STEP 4: Does the patient need physical assistance - for example lifting or trunk support from one helper - wi th the helper providing less than half of the effort? Yes. 1. [id number] ADMISSION PERFORMANCE: Partial/moderate assistance CODE: 03 PUTTING ON/TAKING OFF FOOTWEAR: FOOTWEAR - STEP 1: Does the patient complete the activity by him/herself with no assistance (physical, verbal/nonverbal cueing, setup/clean-up)? No. FOOTWEAR - STEP 2: Does the patient need only setup/clean-up assistance from one helper? No. FOOTWEAR - STEP 3: Does the patient need only verbal/nonverbal cueing or touching/steadying/contact guard assistance fro m one helper? No. FOOTWEAR - STEP 4: Does the patient need physical assistance - for example lifting or trunk support from one helper - wi th the helper providing less than half of the effort? No. FOOTWEAR - STEP 5: Does the patient need physical assistance - for example lifting or trunk support from one helper - wi th the helper providing more than half of the effort? No. FOOTWEAR - STEP 6: Does the helper provide all of the effort? OR Is the assistance of two or more helpers required to co mplete the activity? Yes. 1. [id number] ADMISSION PERFORMANCE: Dependent CODE: 01 ROLL LEFT AND RIGHT: ROLL LEFT AND RIGHT - STEP 1: Does the patient complete the activity by him/herself with no assistance (physical, verbal/nonverbal cueing, setup/clean-up)? Yes. 1. [id number] ADMISSION PERFORMANCE: Independent CODE: 06 SIT TO LYING: SIT TO LYING - STEP 1: Does the patient complete the activity by him/herself with no assistance (physical, verbal/nonverbal cueing, setup/clean-up)? Yes. 1. [id number] ADMISSION PERFORMANCE: Independent CODE: 06 LYING TO SITTING: LYING TO SITTING ON SIDE OF BED - STEP 1: Does the patient complete the activity by him/herself with no assistance (physical, verbal/nonverbal cueing, setup/clean-up)? Yes. 1. [id number] ADMISSION PERFORMANCE: Independent CODE: 06 SIT TO STAND: SIT TO STAND - STEP 1: Does the patient complete the activity by him/herself with no assistance (physical, verbal/nonverbal cueing, setup/clean-up)? No. SIT TO STAND - STEP 2: Does the patient need only setup/clean-up assistance from one helper? No. SIT TO STAND - STEP 3: Does the patient need only verbal/nonverbal cueing or touching/steadying/contact guard assistance fro m one helper? Yes. 1. [id number] ADMISSION PERFORMANCE: Supervision or touching assistance CODE: 04 TRANSFERS: BED, CHAIR: CHAIR/[id number] TRANSFER - STEP 1: Does the patient complete the activity by him/herself with no assistance (physical, verbal/nonverbal cueing, setup/clean-up)? No. CHAIR/[id number] TRANSFER - STEP 2: Does the patient need only setup/clean-up assistance from one helper? No. CHAIR/[id number] TRANSFER - STEP 3: Does the patient need only verbal/nonverbal cueing or touching/steadying/contact guard assistance fro m one helper? Yes. 1. [id number] ADMISSION PERFORMANCE: Supervision or touching assistance CODE: TRANSFER TOILET: TOILET TRANSFER - STEP 1: Does the patient complete the activity by him/herself with no assistance (physical, verbal/nonverbal cueing, setup/clean-up)? No. TOILET TRANSFER - STEP 2: Does the patient need only setup/clean-up assistance from one helper? No. TOILET TRANSFER - STEP 3: Does the patient need only verbal/nonverbal cueing or touching/steadying/contact guard assistance fro m one helper? Yes. 1. [id number] ADMISSION PERFORMANCE: Supervision or touching assistance CODE: TRANSFERS: CAR: Not assessed/no information CODE: - WALK 10 FEET: Not assessed/no information CODE: - 1 STEP (CURB): Not assessed/no information CODE: - PICKING UP OBJECT: Not assessed/no information CODE: - DOES THE PATIENT USE A WHEELCHAIR/SCOOTER? Q1. DOES THE PATIENT USE A WHEELCHAIR/SCOOTER?: Yes CODE: 1 [id number] - COMMENTS: Manual Wheelchair WHEEL 50 FEET WITH TWO TURNS: WHEEL 50 FEET WITH TWO TURNS - STEP 1: Does the patient complete the activity by him/herself with no assistance (physical, verbal/nonverbal cueing, setup/clean-up)? Yes. 1. [id number] ADMISSION PERFORMANCE: Independent CODE: 06 INDICATE THE TYPE OF WHEELCHAIR/SCOOTER USED: CODE: EXPR WHEEL 150 FEET: WHEEL 150 FEET - STEP 1: Does the patient complete the activity by him/herself with no assistance (physical, verbal/nonverbal cueing, setup/clean-up)? Yes. 1. [id number] ADMISSION PERFORMANCE: Independent CODE: 06 INDICATE THE TYPE OF WHEELCHAIR/SCOOTER USED: CODE: EXPR BLADDER AND BOWEL: H350. BLADDER CONTINENCE (3-DAY ASSESSMENT PERIOD): Incontinent less than daily (e.g., once or twice during the 3-day assessment period) CODE: 2 H400. BOWEL CONTINENCE (3-DAY ASSESSMENT PERIOD): Always continent CODE: 0 SIGNATURE PANEL: The following modified sections: 1. [id number] Admission Performance, 1. [id number] Admission Performance, 1. [id number] Admission Performance, 1. HF7417V Admission Performance, 1. GG3818O Admission Performance, 1. [id number] Admission Performance, 1. HH1117d Admission Performance, 1. JY8769V Admission Performance , 1. WI5960U Admission Performance, 1. [id number] Admission Performance, 1. [id number] Admission Performanc e, 1. [id number] Admission Performance, 1. HH3155G Admission Performance, Q1. Does the patient use a whe elchair/scooter?, Q1. Does the patient use a wheelchair/scooter?, Q1. Does the patient use a wheelcha ir/scooter?, [id number] - Comments:, 1. [id number] Admission Performance, 1. AT9764B Admission Performance , Code, H350. Bladder Continence (3-day assessment period), H400. Bowel Continence (3-day assessment period) were [electronically] signed by Melody AndersonNJeffrey on SatJul 08 2019 16:54:52 T-0500 (Ce ntral Daylight Time)
[2019-07-08] MEDS: TERAZOSIN HCL 5 MG CAP PO SCH (19:59)
[2019-07-08] MEDS: TRAMADOL HCL 50 MG TAB PO PRN (20:05)
[2019-07-09] MEDS: MAGNESIUM OXIDE 400 MG TAB PO SCH ×2 (05:12→17:02)
[2019-07-09 06:16] LABS: Absolute Lymphocytes (CBC) 2.8 K/uL (0.7-4.9); Basophils % 0.7 % (0-1.3); Hematocrit 28.1 % (39.6-49.0); Lymphocytes % 23.7 % (15.3-44.8); MPV 7.1 fL (7.6-11.3); RBC Red Blood Cell Count 3.57 M/uL (4.33-5.43)
[2019-07-09 06:34] LABS: Albumin 2.4 g/dL (3.4-5.0); Magnesium 1.9 mg/dL (1.8-2.4); Potassium 4.4 mmol/L (3.5-5.1); Prealbumin 13.8 mg/dL (20-40)
[2019-07-09] MEDS: PANTOPRAZOLE 40MG TABLET PO SCH (06:54)
[2019-07-09] MEDS: ENOXAPARIN 40 MG/0.4 ML SQ SCH (07:00)
[2019-07-09] MEDS: LIDOCAINE 4% PATCH TOP SCH (07:00)
[2019-07-09] MEDS: INSULIN -REGULAR HUMAN 50 UNIT/0.5 ML ML SQ SCH ×4 (07:02→20:26)
[2019-07-09] MEDS: INSULIN GLARGINE 100 UNITS/ML SQ SCH ×2 (07:59→20:25)
[2019-07-09] MEDS: BACI/NEOMYCIN/POLY OINT 15GM TOP SCH (08:00)
[2019-07-09] MEDS: JUVEN PACKET PO SCH ×2 (08:00→20:00)
[2019-07-09] MEDS: LORATADINE 10 MG TAB PO SCH (08:00)
[2019-07-09] MEDS: MEDIHONEY 44 ML TOPICAL TUBE TOP SCH (08:00)
[2019-07-09] MEDS: FERROUS SULFATE 325 MG TAB PO SCH (08:00)
[2019-07-09] MEDS: ASPIRIN EC 81 MG TAB PO SCH (08:00)
[2019-07-09] MEDS: glipiZIDE 5 MG TAB PO SCH ×2 (08:00→17:01)
[2019-07-09] MEDS: DOXYCYCLINE 100 MG CAP PO SCH ×2 (08:00→20:25)
[2019-07-09] MEDS: PROMOD 30 ML DOSE PO SCH ×2 (08:00→20:00)
[2019-07-09] MEDS: NYSTATIN PWDR 100000 UNIT/GM TOP SCH ×2 (08:00→20:29)
[2019-07-09] MEDS: COLCHICINE 0.6 MG TAB PO SCH (08:01)
[2019-07-09] MEDS: GUAIFENESIN 600 MG SA TAB PO SCH ×2 (08:01→20:25)
[2019-07-09] MEDS: FE SULF/FA/VIT B COMP & C TAB PO SCH (08:01)
[2019-07-09] MEDS: AMLODIPINE 5 MG TAB PO SCH (08:01)
[2019-07-09] MEDS: METOPROLOL TAR 50 MG TAB PO SCH ×2 (08:01→20:25)
[2019-07-09] MEDS: hydroCHLOROthiazide 12.5 MG CAP PO SCH (08:01)
[2019-07-09] MEDS: LOSARTAN POTASSIUM 50 MG TABLET PO SCH (08:02)
--- NOTE | 2019-07-09 15:00 | FAST ---
ENCOUNTER DATE AND TIME: 07/09/2019 08:00 (CDT) NAME NABIL MARTI DATE OF : 1945 DATE OF ADMISSION: 06/22/2019 18:11 (CDT) PHONE: AGE: 74 N# [id number] GENDER: Male ENCOUNTER PHYSICIAN: Dr. Magdi De Jesus M.D. ADMISSION DIAGNOSIS: - Orthopaedic Disorders 08 - Unilateral Hip Fracture (08.11) RIGHT HIP FRACTURE. ROLL LEFT AND RIGHT: ROLL LEFT AND RIGHT - STEP 1: Does the patient complete the activity by him/herself with no assistance (physical, verbal/nonverbal cueing, setup/clean-up)? No. ROLL LEFT AND RIGHT - STEP 2: Does the patient need only setup/clean-up assistance from one helper? Yes. 1. [id number] ADMISSION PERFORMANCE: Setup or clean-up assistance CODE: 05 SIT TO LYING: SIT TO LYING - STEP 1: Does the patient complete the activity by him/herself with no assistance (physical, verbal/nonverbal cueing, setup/clean-up)? No. SIT TO LYING - STEP 2: Does the patient need only setup/clean-up assistance from one helper? Yes. 1. [id number] ADMISSION PERFORMANCE: Setup or clean-up assistance CODE: 05 LYING TO SITTING: LYING TO SITTING ON SIDE OF BED - STEP 1: Does the patient complete the activity by him/herself with no assistance (physical, verbal/nonverbal cueing, setup/clean-up)? No. LYING TO SITTING ON SIDE OF BED - STEP 2: Does the patient need only setup/clean-up assistance from one helper? Yes. 1. [id number] ADMISSION PERFORMANCE: Setup or clean-up assistance CODE: 05 SIT TO STAND: SIT TO STAND - STEP 1: Does the patient complete the activity by him/herself with no assistance (physical, verbal/nonverbal cueing, setup/clean-up)? No. SIT TO STAND - STEP 2: Does the patient need only setup/clean-up assistance from one helper? Yes. 1. [id number] ADMISSION PERFORMANCE: Setup or clean-up assistance CODE: 05 TRANSFERS: BED, CHAIR: CHAIR/[id number] TRANSFER - STEP 1: Does the patient complete the activity by him/herself with no assistance (physical, verbal/nonverbal cueing, setup/clean-up)? No. CHAIR/[id number] TRANSFER - STEP 2: Does the patient need only setup/clean-up assistance from one helper? Yes. 1. [id number] ADMISSION PERFORMANCE: Setup or clean-up assistance CODE: 05 TRANSFER TOILET: TOILET TRANSFER - STEP 1: Does the patient complete the activity by him/herself with no assistance (physical, verbal/nonverbal cueing, setup/clean-up)? No. TOILET TRANSFER - STEP 2: Does the patient need only setup/clean-up assistance from one helper? Yes. 1. [id number] ADMISSION PERFORMANCE: Setup or clean-up assistance CODE: 05 TRANSFERS: CAR: Not assessed/no information CODE: - WALK 10 FEET: WALK 10 FEET - STEP 1: Does the patient complete the activity by him/herself with no assistance (physical, verbal/nonverbal cueing, setup/clean-up)? No. WALK 10 FEET - STEP 2: Does the patient need only setup/clean-up assistance from one helper? Yes. 1. [id number] ADMISSION PERFORMANCE: Setup or clean-up assistance CODE: 05 WALK 50 FEET: WALK 50 FEET - STEP 1: Does the patient complete the activity by him/herself with no assistance (physical, verbal/nonverbal cueing, setup/clean-up)? No. WALK 50 FEET - STEP 2: Does the patient need only setup/clean-up assistance from one helper? Yes. 1. [id number] ADMISSION PERFORMANCE: Setup or clean-up assistance CODE: 05 WALK 150 FEET: Not assessed/no information CODE: - WALK 10 FEET UNEVEN: Not assessed/no information CODE: - 1 STEP (CURB): Not assessed/no information CODE: - PICKING UP OBJECT: Not assessed/no information CODE: - DOES THE PATIENT USE A WHEELCHAIR/SCOOTER? Q1. DOES THE PATIENT USE A WHEELCHAIR/SCOOTER?: Yes CODE: 1 WHEEL 50 FEET WITH TWO TURNS: WHEEL 50 FEET WITH TWO TURNS - STEP 1: Does the patient complete the activity by him/herself with no assistance (physical, verbal/nonverbal cueing, setup/clean-up)? Yes. 1. [id number] ADMISSION PERFORMANCE: Independent CODE: 06 INDICATE THE TYPE OF WHEELCHAIR/SCOOTER USED: RR1. INDICATE THE TYPE OF WHEELCHAIR/SCOOTER USED.: Manual CODE: 1 WHEEL 150 FEET: WHEEL 150 FEET - STEP 1: Does the patient complete the activity by him/herself with no assistance (physical, verbal/nonverbal cueing, setup/clean-up)? Yes. 1. [id number] ADMISSION PERFORMANCE: Independent CODE: 06 INDICATE THE TYPE OF WHEELCHAIR/SCOOTER USED: SS1. INDICATE THE TYPE OF WHEELCHAIR/SCOOTER USED.: Manual CODE: 1 BLADDER AND BOWEL: CODE: EXPR CODE: EXPR SIGNATURE PANEL: The following modified sections: 1. [id number] Admission Performance, 1. [id number] Admission Performance, 1. [id number] Admission Performance, 1. [id number] Admission Performance, 1. [id number] Admission Performance, 1. [id number] Admission Performance, 1. [id number] Admission Performance, 1. [id number] Admission Performance , Q1. Does the patient use a wheelchair/scooter?, 1. [id number] Admission Performance, RR1. Indicate the type of wheelchair/scooter used., 1. [id number] Admission Performance, Code, SS1. Indicate the type of wheelchair/scooter used. were [electronically] signed by Bernardo Hurtado PTA on SatJul 09 2019 14:59:31 GMT-0500 (Central Daylight Time)
--- NOTE | 2019-07-09 17:40 | R.PN ---
ENCOUNTER DATE AND TIME: 07/09/2019 17:36 (CDT) NAME NABIL MARTI DATE OF : 1945 DATE OF ADMISSION: 06/22/2019 18:11 (CDT) RIGHT HIP FRACTURECHIEF COMPLAINT: Right hip fracture SUBJECTIVE: Pt denied any depression. Pt denied any Shortness of Breath. He has less bilateral knee pain after 5% lidoderm patches were placed. He is making good overall prog ress with physical and occupational therapy. Blood work is stable. VITAL SIGNS Temperature: 97.6 F SBP/DBP:142/84 Pulse: 82 Resp: 17 MEDICATION ALLERGIES: No Known Drug Allergies (NKDA) ENVIRONMENTAL ALLERGIES: None Known - Substance Allergies None Known - Other Allergies None Known NURSING: - Shower allowing shower - Lab Results blood Sugar Check ACHS - Skin care per protocol PRECAUTIONS: - Posterior Hip Precaution No adduction across midline No external rotation No hip flexion >90 degrees No internal rotation No wheel chair propulsion - Weight Bearing Precaution WBAT right LE ACTIVITIES OOB only with supervision THERAPIES: - Dietary and Nutrition Adequate Nutrition. Nutritional Education. Nutritional Supplements. PHYSICAL EXAM - Gen Alert and awake Lying in bed No apparent distress Oriented to: person, time, and place - Skin Right hip incision intact No abnormalities - Eyes No abnormalities - ENMT No abnormalities - Neck No abnormalities - CVS RRR - Chest No abnormalities - Resp Clear to auscultation - Abd Soft - GI nondistended Deferred - No abnormalities - Ext Mild bilateral lower extremity edema. - MSK 4+/5 weakness in both lower extremities. - Neuro No focal deficits - Psych No abnormalities ASSESSMENT: Pt. is a 74 yo Right-handed white male.On 06/20/2019 he was admitted to [facility] with diagnosis RIGHT HIP FRACTURE.His impairment category is Orthopaedic Disorders 08 - Unilater al Hip Fracture (08.11).Pre-morbidly, Pt. was independent/mod-I in Self-Care, Sphincter Control, Miguel sfers Control, Locomotion, Communication, and Social Cognition; and he had good Sphincter Control.Cur rently, he has deficits of Self-Care, Transfers Control, Locomotion, Endurance, Balance, and Safety A wareness.Pt. is now referred to [facility] for acute in-patient rehabilitation in order to maximize patient's functional independence in activities of daily living, strength, ROM, and mobility.- Rehab Goal Patient has realistic goal of being discharged at assistance level 6-[place] to reside at Home with Fam delmy/Relatives. MDM/PLAN: - Physical Therapy Decreased range of motion - to improve, our physical therapists will perform initial evaluation of p t's status upon admission and devise an individualized program for increasing patient's Range of Patricio on. Gait dysfunction - to improve, our physical therapists will perform initial evaluation of pt's statu s upon admission and devise an individualized program for Gait Training, and Wheel Chair mobility Inability to transfer - to improve, our physical therapists will perform initial evaluation of pt's status upon admission and devise an individualized program for Bed mobility Need for home safety evaluation - to improve, our physical therapists will perform initial evaluatio n of pt's status upon admission and devise an individualized program for Home Evaluation Need in caregiver upon discharge - to improve, our physical therapists will perform initial evaluati on of pt's status upon admission and devise an individualized program for Caregiver Training Edema - to improve, our physical therapists will perform initial evaluation of pt's status upon admi ssion and devise an individualized program for Elevation Training, and Lymphedema Therapy New precaution - to improve, our physical therapists will perform initial evaluation of pt's status upon admission and devise an individualized program for Patient precaution education Poor balance - to improve, our physical therapists will perform initial evaluation of pt's status up on admission and devise an individualized program for Balance Training Poor endurance - to improve, our physical therapists will perform initial evaluation of pt's status upon admission and devise an individualized program for Endurance Training Weakness - to improve, our physical therapists will perform initial evaluation of pt's status upon a dmission and devise an individualized program for Aquatic Therapy, Neuromuscular Reeducation, and Str engthening Achieving independence - to improve, our physical therapists will perform initial evaluation of pt's status upon admission and devise an individualized program for Community Reintegration Activities - Occupational Therapy ADL deficits - to improve, our occupation therapists will perform initial evaluation of pt's status upon admission and devise an individualized program for Bathing, Bed mobility, Community Reintegratio n, Cooking, Dressing, Eating, Fine Motor Skills, Grooming, Homemaking, Kitchen Mobility, Laundry, Pat ient Education, Safety Awareness, Splinting - Positioning, Transfers(Toilet, Tub, Shower), and Wheel Chair Management Need for healthcare advisory services manager - to improve, our occupation therapists will perform initial evaluation of pt's status upon admission and devise an individualized program for Caregiver Training Weakness - to improve, our occupation therapists will perform initial evaluation of pt's status upon admission and devise an individualized program for Aquatic Therapy, Balance, Endurance, UE ROM, and UE strengthening - Other See attached MAR (Medication Administration Record) See attached MAR (Medication Administration Record) Nabil Marti.pdf - Anterior Hip Precaution No abduction No active extension No adduction across midline No external rotation No hip flexion >90 degrees No internal rotation - Diet - Liquid Texture Continue Regular - Tube Feed Continue N/A - Diet Type Continue Regular - Posterior Hip Precaution No adduction across midline No external rotation No hip flexion >90 degrees No internal rotation No wheel chair propulsion - Lab Results blood Sugar Check ACHS - Weight Bearing Precaution WBAT right LE - Skin care per protocol - Diet - Solid Texture Continue Regular - Shower allowing shower FUNCTIONAL STATUS: UPDATED AT WEEKLY TEAM CONFERENCE - Bladder Same accident frequency: 7-Ind - No accidents in the past 7 days - Bowel Same accident frequency: 7-Ind - No accidents in the past 7 days - Walking Same score based on distance walked: 1(<=50ft) - Wheelchair Same score based on distance traveled: 0(N/A) FUNCTIONAL STATUS: - Self-Care A. Eating sup B. Grooming sup C. Bathing modA D. Dressing - Upper modA E. Dressing - Lower maxA F. Toileting maxA - Sphincter Control G: Bladder control Ind H: Bowel control Ind - Transfers Control I. Bed/Chair/Wheelchair maxA J. Toilet maxA K. Tub/Shower ADNO - Locomotion L. Walk/Wheelchair (C) maxA L. Walk/Wheelchair (W) maxA M. Stairs ADNO - Communication N. Comprehension (B) Ind O. Expression (B) Ind - Social Cognition P. Social Interaction Ind Q. Problem Solving Ind R. Memory Ind - Endurance Poor - Balance Fair - Safety Awareness Fair QI SCORES:: - Self-Care A. Eating 05-Setup or clean-up assistance B. Oral hygiene 05-Setup or clean-up assistance C. Toileting hygiene 02-Substantial/maximal assistance E. Shower/bathe self 02-Substantial/maximal assistance F. Upper body dressing 02-Substantial/maximal assistance G. Lower body dressing 02-Substantial/maximal assistance H. Putting on/taking off footwear 02-Substantial/maximal assistance - Mobility A. Roll left and right 02-Substantial/maximal assistance B. Sit to lying 02-Substantial/maximal assistance C. Lying to sitting on side of bed 02-Substantial/maximal assistance D. Sit to stand 02-Substantial/maximal assistance E. Chair/wtk-cp-byyth transfer 02-Substantial/maximal assistance F. Toilet transfer 02-Substantial/maximal assistance G. Car transfer 88-Not attempted due to medical condition or safety concerns I. Walk 10 feet 01-Dependent J. Walk 50 feet with two turns 88-Not attempted due to medical condition or safety concerns K. Walk 150 feet 01-Dependent L. Walking 10 feet on uneven surfaces 09-Not applicable M. 1 step (curb) 09-Not applicable N. 4 steps 88-Not attempted due to medical condition or safety concerns O. 12 steps 88-Not attempted due to medical condition or safety concerns P. Picking up object 88-Not attempted due to medical condition or safety concerns R. Wheel 50 feet with two turns 88-Not attempted due to medical condition or safety concerns S. Wheel 150 feet 88-Not attempted due to medical condition or safety concerns - Bladder and Bowel Bladder continence 0-Always continent Bowel continence 0-Always continent CURRENT FUNC. DEFICITS: Self-Care, Transfers Control, Locomotion, Endurance, Balance, and Safety Awareness SIGNATURE PANEL: (CDT)
[2019-07-09] MEDS: TERAZOSIN HCL 5 MG CAP PO SCH (20:24)
[2019-07-09] MEDS: TRAMADOL HCL 50 MG TAB PO PRN (20:27)
[2019-07-10] MEDS: MAGNESIUM OXIDE 400 MG TAB PO SCH ×2 (05:37→16:56)
[2019-07-10] MEDS: PANTOPRAZOLE 40MG TABLET PO SCH (06:44)
[2019-07-10] MEDS: INSULIN -REGULAR HUMAN 50 UNIT/0.5 ML ML SQ SCH ×4 (07:25→20:04)
[2019-07-10] MEDS: PROMOD 30 ML DOSE PO SCH ×2 (08:00→20:00)
[2019-07-10] MEDS: JUVEN PACKET PO SCH ×2 (08:00→20:00)
[2019-07-10] MEDS: FE SULF/FA/VIT B COMP & C TAB PO SCH (08:28)
[2019-07-10] MEDS: LIDOCAINE 4% PATCH TOP SCH (08:28)
[2019-07-10] MEDS: DOXYCYCLINE 100 MG CAP PO SCH ×2 (08:28→20:00)
[2019-07-10] MEDS: hydroCHLOROthiazide 12.5 MG CAP PO SCH (08:29)
[2019-07-10] MEDS: COLCHICINE 0.6 MG TAB PO SCH (08:29)
[2019-07-10] MEDS: GUAIFENESIN 600 MG SA TAB PO SCH ×2 (08:29→20:01)
[2019-07-10] MEDS: LORATADINE 10 MG TAB PO SCH (08:29)
[2019-07-10] MEDS: LOSARTAN POTASSIUM 50 MG TABLET PO SCH (08:29)
[2019-07-10] MEDS: FERROUS SULFATE 325 MG TAB PO SCH (08:29)
[2019-07-10] MEDS: glipiZIDE 5 MG TAB PO SCH ×2 (08:29→16:56)
[2019-07-10] MEDS: ASPIRIN EC 81 MG TAB PO SCH (08:29)
[2019-07-10] MEDS: METOPROLOL TAR 50 MG TAB PO SCH ×2 (08:30→20:00)
[2019-07-10] MEDS: INSULIN GLARGINE 100 UNITS/ML SQ SCH ×2 (08:30→20:03)
[2019-07-10] MEDS: ENOXAPARIN 40 MG/0.4 ML SQ SCH (08:30)
[2019-07-10] MEDS: AMLODIPINE 5 MG TAB PO SCH (08:30)
--- NOTE | 2019-07-10 08:51 | FAST ---
ENCOUNTER DATE AND TIME: 07/08/2019 08:00 (CDT) NAME NABIL MARTI DATE OF : 1945 DATE OF ADMISSION: 06/22/2019 18:11 (CDT) PHONE: AGE: 74 N# [id number] GENDER: Male ENCOUNTER PHYSICIAN: Dr. Magdi De Jesus M.D. ADMISSION DIAGNOSIS: - Orthopaedic Disorders 08 - Unilateral Hip Fracture (08.11) RIGHT HIP FRACTURE. EATING: EATING - STEP 1: Does the patient complete the activity by him/herself with no assistance (physical, verbal/nonverbal cueing, setup/clean-up)? Yes. 1. [id number] ADMISSION PERFORMANCE: Independent CODE: 06 ORAL HYGIENE: ORAL HYGIENE - STEP 1: Does the patient complete the activity by him/herself with no assistance (physical, verbal/nonverbal cueing, setup/clean-up)? Yes. 1. [id number] ADMISSION PERFORMANCE: Independent CODE: 06 TOILETING HYGIENE: TOILETING HYGIENE - STEP 1: Does the patient complete the activity by him/herself with no assistance (physical, verbal/nonverbal cueing, setup/clean-up)? No. TOILETING HYGIENE - STEP 2: Does the patient need only setup/clean-up assistance from one helper? Yes. 1. [id number] ADMISSION PERFORMANCE: Setup or clean-up assistance CODE: 05 BATHING: SHOWER/BATHE SELF - STEP 1: Does the patient complete the activity by him/herself with no assistance (physical, verbal/nonverbal cueing, setup/clean-up)? No. SHOWER/BATHE SELF - STEP 2: Does the patient need only setup/clean-up assistance from one helper? Yes. 1. [id number] ADMISSION PERFORMANCE: Setup or clean-up assistance CODE: 05 DRESSING - UPPER BODY: DRESSING - UPPER BODY - STEP 1: Does the patient complete the activity by him/herself with no assistance (physical, verbal/nonverbal cueing, setup/clean-up)? Yes. 1. [id number] ADMISSION PERFORMANCE: Independent CODE: 06 DRESSING - LOWER BODY: DRESSING - LOWER BODY - STEP 1: Does the patient complete the activity by him/herself with no assistance (physical, verbal/nonverbal cueing, setup/clean-up)? No. DRESSING - LOWER BODY - STEP 2: Does the patient need only setup/clean-up assistance from one helper? No. DRESSING - LOWER BODY - STEP 3: Does the patient need only verbal/nonverbal cueing or touching/steadying/contact guard assistance fro m one helper? Yes. 1. [id number] ADMISSION PERFORMANCE: Supervision or touching assistance CODE: 04 PUTTING ON/TAKING OFF FOOTWEAR: FOOTWEAR - STEP 1: Does the patient complete the activity by him/herself with no assistance (physical, verbal/nonverbal cueing, setup/clean-up)? No. FOOTWEAR - STEP 2: Does the patient need only setup/clean-up assistance from one helper? No. FOOTWEAR - STEP 3: Does the patient need only verbal/nonverbal cueing or touching/steadying/contact guard assistance fro m one helper? Yes. 1. [id number] ADMISSION PERFORMANCE: Supervision or touching assistance CODE: 04 DOES THE PATIENT USE A WHEELCHAIR/SCOOTER? CODE: EXPR INDICATE THE TYPE OF WHEELCHAIR/SCOOTER USED: CODE: EXPR INDICATE THE TYPE OF WHEELCHAIR/SCOOTER USED: CODE: EXPR BLADDER AND BOWEL: CODE: EXPR CODE: EXPR SIGNATURE PANEL: The following modified sections: 1. [id number] Admission Performance, 1. [id number] Admission Performance, 1. [id number] Admission Performance, 1. [id number] Admission Performance, 1. RP3215h Admission Performance, 1. DD4352s Admission Performance, 1. [id number] Admission Performance were [electronically] signed by Gael Jay OT on SatJul 10 2019 08:50:46 T-0500 (Central Daylight Time)
[2019-07-10] MEDS: MEDIHONEY 44 ML TOPICAL TUBE TOP SCH (09:00)
[2019-07-10] MEDS: NYSTATIN PWDR 100000 UNIT/GM TOP SCH ×2 (09:00→20:06)
[2019-07-10] MEDS: BACI/NEOMYCIN/POLY OINT 15GM TOP SCH (09:00)
--- NOTE | 2019-07-10 09:38 | P.RH.PN ---
Estimated Length of Stay: 23 Expected Discharge Date: 07/14/19 Discharge Disposition Plan: Home Family Support: Yes Half-Way Goal: Mobility, Transfers, Self Care Vital Signs: Last Vital Signs Temp 97.5 F 07/09/19 18:30 Pulse 83 07/10/19 08:30 Resp 18 07/09/19 21:27 BP 137/58 L 07/10/19 08:30 Pulse Ox 99 07/09/19 21:27 Laboratory: Laboratory Last Values WBC 12.0 K/uL (4.3-10.9) H 07/09/19 05:32 RBC 3.57 M/uL (4.33-5.43) L 07/09/19 05:32 Hgb 9.3 g/dL (13.6-17.9) L 07/09/19 05:32 Hct 28.1 % (39.6-49.0) L 07/09/19 05:32 MCV 78.8 fL (80-100) L 07/09/19 05:32 MCH 26.0 pg (27.0-35.0) L 07/09/19 05:32 MCHC 33.0 g/dL (32.0-36.0) 07/09/19 05:32 RDW 18.1 % (12.1-15.2) H 07/09/19 05:32 Plt Count 378 K/uL (152-406) 07/09/19 05:32 MPV 7.1 fL (7.6-11.3) L D 07/09/19 05:32 Neutrophils % 57.4 % (41.7-73.7) 07/09/19 05:32 Lymphocytes % 23.7 % (15.3-44.8) 07/09/19 05:32 Monocytes % 9.4 % (3.3-12.3) 07/09/19 05:32 Eosinophils % 8.8 % (0-4.4) H 07/09/19 05:32 Basophils % 0.7 % (0-1.3) 07/09/19 05:32 Absolute Neutrophils 6.9 K/uL (1.8-8.0) 07/09/19 05:32 Absolute Lymphocytes 2.8 K/uL (0.7-4.9) 07/09/19 05:32 Absolute Monocytes 1.1 K/uL (0.1-1.3) 07/09/19 05:32 Absolute Eosinophils 1.1 K/uL (0-0.5) H 07/09/19 05:32 Absolute Basophils 0.1 K/uL (0-0.5) 07/09/19 05:32 Sodium 144 mmol/L (136-145) 07/09/19 05:32 Potassium 4.4 mmol/L (3.5-5.1) 07/09/19 05:32 Chloride 109 mmol/L (98-107) H 07/09/19 05:32 Carbon Dioxide 29 mmol/L (21-32) 07/09/19 05:32 BUN 31 mg/dL (7-18) H 07/09/19 05:32 Creatinine 1.23 mg/dL (0.55-1.3) 07/09/19 05:32 Estimated GFR 57 mL/min (=/>90) L 07/09/19 05:32 Glucose 81 mg/dL (74-106) 07/09/19 05:32 POC Glucose 109 mg/dl (65-120) 07/10/19 Unknown Lactic Acid 1.5 mmol/L (0.4-2.0) 06/30/19 20:20 Calcium 8.9 mg/dL (8.5-10.1) 07/09/19 05:32 Magnesium 1.9 mg/dL (1.8-2.4) 07/09/19 05:32 Total Bilirubin 0.3 mg/dL (0.2-1.0) 06/29/19 09:33 Direct Bilirubin 0.1 mg/dL (0-0.2) 06/29/19 09:33 AST 19 U/L (15-37) 06/29/19 09:33 ALT 31 U/L (12-78) 06/29/19 09:33 Alkaline Phosphatase 128 U/L (45-117) H 06/29/19 09:33 Serum Total Protein 7.2 g/dL (6.4-8.2) 06/29/19 09:33 Albumin 2.4 g/dL (3.4-5.0) L 07/09/19 05:32 Globulin 4.8 g/dL (2.3-3.5) H 06/29/19 09:33 Albumin/Globulin Ratio 0.5 (1.1-1.8) L 06/29/19 09:33 Prealbumin 13.8 mg/dL (20-40) L 07/09/19 05:32 Amylase 56 U/L (25-115) 06/29/19 09:33 Lipase 228 U/L (73-393) 06/29/19 09:33 Procalcitonin < 0.05 ng/mL (<0.50) 06/29/19 09:33 Urine Color Yellow 06/29/19 18:45 Urine Appearance Clear 06/29/19 18:45 Urine pH 5.0 (5.0-7.0) 06/29/19 18:45 Ur Specific [place] 1.015 (1.005-1.030) 06/29/19 18:45 Urine Ketones Negative (NEG) 06/29/19 18:45 Urine Blood 1+ (NEG) H 06/29/19 18:45 Urine Nitrite Negative (NEG) 06/29/19 18:45 Urine Bilirubin Negative (NEG) 06/29/19 18:45 Urine Urobilinogen 0.2 mg/dL (0.2-1.0) 06/29/19 18:45 Ur Leukocyte Esterase Negative (NEG) 06/29/19 18:45 Urine RBC 5-10 /HPF (NONE SEEN) H 06/29/19 18:45 Urine WBC 5-10 /HPF (<5) H 06/29/19 18:45 Ur Squamous Epith Cells <5 /HPF (NONE SEEN) 06/29/19 18:45 Urine Bacteria <20 /HPF (NONE SEEN) 06/29/19 18:45 Urine Culture Reflexed Reflexed 06/29/19 18:45 Urine Glucose Negative (NEG) 06/29/19 18:45 Urine Total Protein Negative (NEG) 06/29/19 18:45 Weight: 226 lb 3.2 oz Wound Present: Yes Closed Surgical Incision Present: Yes Negative Pressure Wound Therapy Present: No Physician Update: Labs reviewed and are stable. Hgb is mildly low, treated with hemocyte plus. He is making fair overall progress walking 130' with standby assistance. Medical Issues: Patient has stage 2 diabetic ulcer on left heel which is dried and healing well, applied medihoney daily.On right heel, stage 2 partial thickness dried and healing well, neosporin applied daily. Patient's bladder incontinence is less than daily and bowel continence is always continent. Pain Issues: Tramadol 50mg Q6H PO PRN. Lidoderm patch 5% Daily to both knees Functional Improvement: Patient has met all short-term goals at this time and continues to progress well toward long-term goals. Patient demonstrates good overall safety awareness, work ethic, and technique. Functional Improvement Occupational Therapy: Pt can benifit with continued therapy to increase pt's overall endurance and UB strength for adl tasks, cont to educate and train pt on energy conservation techniques for safety and for following hip precautions. pt able to recall hip precautions and is able to demo using the massotherapist and the sockaide for safety. Cont to increase pt's static standing balance for bathing and clothing mgmt for safety. Cont with the POC and the goals by the supervising OTR. Summary: Patient's care plan and residential goals have been reviewed and revised as necessary. Please see the Rehabilitation Signature page for all necessary signatures.
--- NOTE | 2019-07-10 14:37 | FAST ---
ENCOUNTER DATE AND TIME: 07/10/2019 08:00 (CDT) NAME NABIL MARTI DATE OF : 1945 DATE OF ADMISSION: 06/22/2019 18:11 (CDT) PHONE: AGE: 74 N# [id number] GENDER: Male ENCOUNTER PHYSICIAN: Dr. Magdi De Jesus M.D. ADMISSION DIAGNOSIS: - Orthopaedic Disorders 08 - Unilateral Hip Fracture (08.11) RIGHT HIP FRACTURE. EATING: Not assessed/no information CODE: - ORAL HYGIENE: ORAL HYGIENE - STEP 1: Does the patient complete the activity by him/herself with no assistance (physical, verbal/nonverbal cueing, setup/clean-up)? Yes. 1. [id number] ADMISSION PERFORMANCE: Independent CODE: 06 TOILETING HYGIENE: TOILETING HYGIENE - STEP 1: Does the patient complete the activity by him/herself with no assistance (physical, verbal/nonverbal cueing, setup/clean-up)? No. TOILETING HYGIENE - STEP 2: Does the patient need only setup/clean-up assistance from one helper? No. TOILETING HYGIENE - STEP 3: Does the patient need only verbal/nonverbal cueing or touching/steadying/contact guard assistance fro m one helper? Yes. 1. [id number] ADMISSION PERFORMANCE: Supervision or touching assistance CODE: 04 BATHING: SHOWER/BATHE SELF - STEP 1: Does the patient complete the activity by him/herself with no assistance (physical, verbal/nonverbal cueing, setup/clean-up)? No. SHOWER/BATHE SELF - STEP 2: Does the patient need only setup/clean-up assistance from one helper? No. SHOWER/BATHE SELF - STEP 3: Does the patient need only verbal/nonverbal cueing or touching/steadying/contact guard assistance fro m one helper? Yes. 1. [id number] ADMISSION PERFORMANCE: Supervision or touching assistance CODE: 04 DRESSING - UPPER BODY: DRESSING - UPPER BODY - STEP 1: Does the patient complete the activity by him/herself with no assistance (physical, verbal/nonverbal cueing, setup/clean-up)? Yes. 1. [id number] ADMISSION PERFORMANCE: Independent CODE: 06 DRESSING - LOWER BODY: DRESSING - LOWER BODY - STEP 1: Does the patient complete the activity by him/herself with no assistance (physical, verbal/nonverbal cueing, setup/clean-up)? No. DRESSING - LOWER BODY - STEP 2: Does the patient need only setup/clean-up assistance from one helper? No. DRESSING - LOWER BODY - STEP 3: Does the patient need only verbal/nonverbal cueing or touching/steadying/contact guard assistance fro m one helper? Yes. 1. [id number] ADMISSION PERFORMANCE: Supervision or touching assistance CODE: 04 PUTTING ON/TAKING OFF FOOTWEAR: FOOTWEAR - STEP 1: Does the patient complete the activity by him/herself with no assistance (physical, verbal/nonverbal cueing, setup/clean-up)? No. FOOTWEAR - STEP 2: Does the patient need only setup/clean-up assistance from one helper? No. FOOTWEAR - STEP 3: Does the patient need only verbal/nonverbal cueing or touching/steadying/contact guard assistance fro m one helper? Yes. 1. [id number] ADMISSION PERFORMANCE: Supervision or touching assistance CODE: 04 DOES THE PATIENT USE A WHEELCHAIR/SCOOTER? CODE: EXPR INDICATE THE TYPE OF WHEELCHAIR/SCOOTER USED: CODE: EXPR INDICATE THE TYPE OF WHEELCHAIR/SCOOTER USED: CODE: EXPR BLADDER AND BOWEL: CODE: EXPR CODE: EXPR SIGNATURE PANEL: The following modified sections: 1. [id number] Admission Performance, 1. [id number] Admission Performance, 1. [id number] Admission Performance, 1. BZ9716r Admission Performance, 1. YM9993r Admission Performance, 1. QL5938k Admission Performance, 1. IY4160y Admission Performance were [electronically] signed by ANNY Rutherford on SatJul 10 2019 14:36:01 T-0500 (Central Daylight Time)
[2019-07-10] MEDS: TERAZOSIN HCL 5 MG CAP PO SCH (20:01)
[2019-07-10] MEDS: TRAMADOL HCL 50 MG TAB PO PRN (20:01)
[2019-07-11] MEDS: MAGNESIUM OXIDE 400 MG TAB PO SCH ×2 (05:22→16:59)
[2019-07-11] MEDS: ENOXAPARIN 40 MG/0.4 ML SQ SCH (06:31)
[2019-07-11] MEDS: PANTOPRAZOLE 40MG TABLET PO SCH (06:31)
[2019-07-11] MEDS: LIDOCAINE 4% PATCH TOP SCH (06:31)
[2019-07-11] MEDS: INSULIN -REGULAR HUMAN 50 UNIT/0.5 ML ML SQ SCH ×4 (07:25→20:22)
[2019-07-11] MEDS: INSULIN GLARGINE 100 UNITS/ML SQ SCH ×2 (07:53→20:22)
[2019-07-11] MEDS: TRAMADOL HCL 50 MG TAB PO PRN ×2 (07:53→20:24)
[2019-07-11] MEDS: METOPROLOL TAR 50 MG TAB PO SCH ×2 (07:54→19:39)
[2019-07-11] MEDS: FERROUS SULFATE 325 MG TAB PO SCH (07:54)
[2019-07-11] MEDS: AMLODIPINE 5 MG TAB PO SCH (07:55)
[2019-07-11] MEDS: ASPIRIN EC 81 MG TAB PO SCH (07:55)
[2019-07-11] MEDS: glipiZIDE 5 MG TAB PO SCH ×2 (07:55→16:59)
[2019-07-11] MEDS: GUAIFENESIN 600 MG SA TAB PO SCH ×2 (07:55→19:39)
[2019-07-11] MEDS: COLCHICINE 0.6 MG TAB PO SCH (07:55)
[2019-07-11] MEDS: LOSARTAN POTASSIUM 50 MG TABLET PO SCH (07:56)
[2019-07-11] MEDS: FE SULF/FA/VIT B COMP & C TAB PO SCH (07:56)
[2019-07-11] MEDS: hydroCHLOROthiazide 12.5 MG CAP PO SCH (07:56)
[2019-07-11] MEDS: DOXYCYCLINE 100 MG CAP PO SCH ×2 (07:56→19:39)
[2019-07-11] MEDS: PROMOD 30 ML DOSE PO SCH ×2 (07:57→19:40)
[2019-07-11] MEDS: JUVEN PACKET PO SCH ×2 (07:57→19:40)
[2019-07-11] MEDS: LORATADINE 10 MG TAB PO SCH (07:57)
[2019-07-11] MEDS: BACI/NEOMYCIN/POLY OINT 15GM TOP SCH (08:37)
[2019-07-11] MEDS: MEDIHONEY 44 ML TOPICAL TUBE TOP SCH (08:38)
[2019-07-11] MEDS: NYSTATIN PWDR 100000 UNIT/GM TOP SCH ×2 (08:38→19:40)
[2019-07-11] MEDS: TERAZOSIN HCL 5 MG CAP PO SCH (20:20)
[2019-07-12] MEDS: MAGNESIUM OXIDE 400 MG TAB PO SCH ×2 (05:33→16:45)
[2019-07-12] MEDS: PANTOPRAZOLE 40MG TABLET PO SCH (05:34)
[2019-07-12] MEDS: NYSTATIN PWDR 100000 UNIT/GM TOP SCH ×2 (06:22→19:38)
[2019-07-12] MEDS: ENOXAPARIN 40 MG/0.4 ML SQ SCH (06:22)
[2019-07-12] MEDS: LIDOCAINE 4% PATCH TOP SCH (06:22)
[2019-07-12] MEDS: INSULIN -REGULAR HUMAN 50 UNIT/0.5 ML ML SQ SCH ×4 (07:30→20:34)
[2019-07-12] MEDS: INSULIN GLARGINE 100 UNITS/ML SQ SCH ×2 (07:56→20:33)
[2019-07-12] MEDS: TRAMADOL HCL 50 MG TAB PO PRN (07:57)
[2019-07-12] MEDS: FERROUS SULFATE 325 MG TAB PO SCH (07:58)
[2019-07-12] MEDS: METOPROLOL TAR 50 MG TAB PO SCH ×2 (07:58→19:39)
[2019-07-12] MEDS: LORATADINE 10 MG TAB PO SCH (07:58)
[2019-07-12] MEDS: AMLODIPINE 5 MG TAB PO SCH (07:58)
[2019-07-12] MEDS: GUAIFENESIN 600 MG SA TAB PO SCH ×2 (07:59→19:39)
[2019-07-12] MEDS: FE SULF/FA/VIT B COMP & C TAB PO SCH (07:59)
[2019-07-12] MEDS: hydroCHLOROthiazide 12.5 MG CAP PO SCH (07:59)
[2019-07-12] MEDS: LOSARTAN POTASSIUM 50 MG TABLET PO SCH (07:59)
[2019-07-12] MEDS: ASPIRIN EC 81 MG TAB PO SCH (07:59)
[2019-07-12] MEDS: glipiZIDE 5 MG TAB PO SCH ×2 (08:00→16:45)
[2019-07-12] MEDS: COLCHICINE 0.6 MG TAB PO SCH (08:00)
[2019-07-12] MEDS: JUVEN PACKET PO SCH ×2 (08:00→19:38)
[2019-07-12] MEDS: DOXYCYCLINE 100 MG CAP PO SCH ×2 (08:00→19:39)
[2019-07-12] MEDS: PROMOD 30 ML DOSE PO SCH ×2 (08:00→19:40)
--- NOTE | 2019-07-12 09:35 | FAST ---
SHIFT START DATE/TIME: 07/12/2019 07:00 (CDT) SHIFT END DATE/TIME: 07/12/2019 19:00 (CDT) NAME NABIL MARTI DATE OF : 1945 DATE OF ADMISSION: 06/22/2019 18:11 (CDT) PHONE: AGE: 74 SSN# [id number] GENDER: Male ENCOUNTER PHYSICIAN: Dr. Magdi De Jesus M.D. ADMISSION DIAGNOSIS: - Orthopaedic Disorders 08 - Unilateral Hip Fracture (08.11) RIGHT HIP FRACTURE. EATING: EATING - STEP 1: Does the patient complete the activity by him/herself with no assistance (physical, verbal/nonverbal cueing, setup/clean-up)? Yes. 1. [id number] ADMISSION PERFORMANCE: Independent CODE: 06 ORAL HYGIENE: ORAL HYGIENE - STEP 1: Does the patient complete the activity by him/herself with no assistance (physical, verbal/nonverbal cueing, setup/clean-up)? Yes. 1. [id number] ADMISSION PERFORMANCE: Independent CODE: 06 TOILETING HYGIENE: TOILETING HYGIENE - STEP 1: Does the patient complete the activity by him/herself with no assistance (physical, verbal/nonverbal cueing, setup/clean-up)? No. TOILETING HYGIENE - STEP 2: Does the patient need only setup/clean-up assistance from one helper? No. TOILETING HYGIENE - STEP 3: Does the patient need only verbal/nonverbal cueing or touching/steadying/contact guard assistance fro m one helper? Yes. 1. [id number] ADMISSION PERFORMANCE: Supervision or touching assistance CODE: 04 BATHING: Not assessed/no information CODE: - DRESSING - UPPER BODY: DRESSING - UPPER BODY - STEP 1: Does the patient complete the activity by him/herself with no assistance (physical, verbal/nonverbal cueing, setup/clean-up)? Yes. 1. [id number] ADMISSION PERFORMANCE: Independent CODE: 06 DRESSING - LOWER BODY: DRESSING - LOWER BODY - STEP 1: Does the patient complete the activity by him/herself with no assistance (physical, verbal/nonverbal cueing, setup/clean-up)? No. DRESSING - LOWER BODY - STEP 2: Does the patient need only setup/clean-up assistance from one helper? No. DRESSING - LOWER BODY - STEP 3: Does the patient need only verbal/nonverbal cueing or touching/steadying/contact guard assistance fro m one helper? Yes. 1. [id number] ADMISSION PERFORMANCE: Supervision or touching assistance CODE: 04 PUTTING ON/TAKING OFF FOOTWEAR: FOOTWEAR - STEP 1: Does the patient complete the activity by him/herself with no assistance (physical, verbal/nonverbal cueing, setup/clean-up)? No. FOOTWEAR - STEP 2: Does the patient need only setup/clean-up assistance from one helper? No. FOOTWEAR - STEP 3: Does the patient need only verbal/nonverbal cueing or touching/steadying/contact guard assistance fro m one helper? Yes. 1. [id number] ADMISSION PERFORMANCE: Supervision or touching assistance CODE: 04 ROLL LEFT AND RIGHT: ROLL LEFT AND RIGHT - STEP 1: Does the patient complete the activity by him/herself with no assistance (physical, verbal/nonverbal cueing, setup/clean-up)? No. ROLL LEFT AND RIGHT - STEP 2: Does the patient need only setup/clean-up assistance from one helper? Yes. 1. [id number] ADMISSION PERFORMANCE: Setup or clean-up assistance CODE: 05 SIT TO LYING: SIT TO LYING - STEP 1: Does the patient complete the activity by him/herself with no assistance (physical, verbal/nonverbal cueing, setup/clean-up)? Yes. 1. [id number] ADMISSION PERFORMANCE: Independent CODE: 06 LYING TO SITTING: LYING TO SITTING ON SIDE OF BED - STEP 1: Does the patient complete the activity by him/herself with no assistance (physical, verbal/nonverbal cueing, setup/clean-up)? Yes. 1. [id number] ADMISSION PERFORMANCE: Independent CODE: 06 SIT TO STAND: SIT TO STAND - STEP 1: Does the patient complete the activity by him/herself with no assistance (physical, verbal/nonverbal cueing, setup/clean-up)? Yes. 1. [id number] ADMISSION PERFORMANCE: Independent CODE: 06 TRANSFERS: BED, CHAIR: CHAIR/[id number] TRANSFER - STEP 1: Does the patient complete the activity by him/herself with no assistance (physical, verbal/nonverbal cueing, setup/clean-up)? No. CHAIR/[id number] TRANSFER - STEP 2: Does the patient need only setup/clean-up assistance from one helper? Yes. 1. [id number] ADMISSION PERFORMANCE: Setup or clean-up assistance CODE: 05 TRANSFER TOILET: TOILET TRANSFER - STEP 1: Does the patient complete the activity by him/herself with no assistance (physical, verbal/nonverbal cueing, setup/clean-up)? No. TOILET TRANSFER - STEP 2: Does the patient need only setup/clean-up assistance from one helper? Yes. 1. [id number] ADMISSION PERFORMANCE: Setup or clean-up assistance CODE: 05 TRANSFERS: CAR: Not assessed/no information CODE: - WALK 10 FEET: Not assessed/no information CODE: - 1 STEP (CURB): Not assessed/no information CODE: - PICKING UP OBJECT: Not attempted due to medical condition or safety concerns CODE: 88 DOES THE PATIENT USE A WHEELCHAIR/SCOOTER? Q1. DOES THE PATIENT USE A WHEELCHAIR/SCOOTER?: Yes CODE: 1 WHEEL 50 FEET WITH TWO TURNS: WHEEL 50 FEET WITH TWO TURNS - STEP 1: Does the patient complete the activity by him/herself with no assistance (physical, verbal/nonverbal cueing, setup/clean-up)? Yes. 1. [id number] ADMISSION PERFORMANCE: Independent CODE: 06 INDICATE THE TYPE OF WHEELCHAIR/SCOOTER USED: RR1. INDICATE THE TYPE OF WHEELCHAIR/SCOOTER USED.: Manual CODE: 1 WHEEL 150 FEET: WHEEL 150 FEET - STEP 1: Does the patient complete the activity by him/herself with no assistance (physical, verbal/nonverbal cueing, setup/clean-up)? Yes. 1. [id number] ADMISSION PERFORMANCE: Independent CODE: 06 INDICATE THE TYPE OF WHEELCHAIR/SCOOTER USED: SS1. INDICATE THE TYPE OF WHEELCHAIR/SCOOTER USED.: Manual CODE: 1 BLADDER AND BOWEL: H350. BLADDER CONTINENCE (3-DAY ASSESSMENT PERIOD): Incontinent daily (at least once a day) CODE: 3 H400. BOWEL CONTINENCE (3-DAY ASSESSMENT PERIOD): Always continent CODE: 0 SIGNATURE PANEL: The following modified sections: 1. [id number] Admission Performance, 1. [id number] Admission Performance, 1. AX4745O Admission Performance, 1. JX8272v Admission Performance, 1. GD1139g Admission Performance, 1. ZL8976w Admission Performance, 1. QA6561n Admission Performance, 1. TV7175q Admission Performance , 1. ST9644v Admission Performance, 1. GD9853n Admission Performance, 1. KQ5288d Admission Performanc e, 1. AC9096o Admission Performance, 1. OL3399Q Admission Performance, 1. IP5039D Admission Performan ce, 1. JJ3252W Admission Performance, 1. KO9920J Admission Performance, 1. ZB1982R Admission Performa nce, 1. JG5957P Admission Performance, 1. UB7263O Admission Performance, Q1. Does the patient use a w heelchair/scooter?, 1. DK1300F Admission Performance, RR1. Indicate the type of wheelchair/scooter us ed., 1. JK4023X Admission Performance, Code, SS1. Indicate the type of wheelchair/scooter used., H350 . Bladder Continence (3-day assessment period), H350. Bladder Continence (3-day assessment period), H 350. Bladder Continence (3-day assessment period), H350. Bladder Continence (3-day assessment period) , H350. Bladder Continence (3-day assessment period), H350. Bladder Continence (3-day assessment negar od), H350. Bladder Continence (3-day assessment period), H400. Bowel Continence (3-day assessment per iod), H400. Bowel Continence (3-day assessment period), H350. Bladder Continence (3-day assessment pe riod), H350. Bladder Continence (3-day assessment period) were [electronically] signed by Melody [email or web address] on SatJul 12 2019 09:34:30 GMT-0500 (Central Daylight Time)
[2019-07-12] MEDS: MEDIHONEY 44 ML TOPICAL TUBE TOP SCH (09:36)
[2019-07-12] MEDS: BACI/NEOMYCIN/POLY OINT 15GM TOP SCH (09:36)
[2019-07-12] MEDS ORDERED: D50W 25 GM/50 ML SYRINGE IV PRN (16:34)
[2019-07-12] MEDS ORDERED: GLUCAGON 1 MG/VIAL IM PRN (16:34)
[2019-07-12] MEDS: TERAZOSIN HCL 5 MG CAP PO SCH (20:32)
[2019-07-13] MEDS: MAGNESIUM OXIDE 400 MG TAB PO SCH ×2 (05:33→17:06)
[2019-07-13] MEDS: PANTOPRAZOLE 40MG TABLET PO SCH (05:34)
[2019-07-13] MEDS: NYSTATIN PWDR 100000 UNIT/GM TOP SCH ×3 (06:34→19:27)
[2019-07-13] MEDS: ENOXAPARIN 40 MG/0.4 ML SQ SCH (06:35)
[2019-07-13] MEDS: INSULIN -REGULAR HUMAN 50 UNIT/0.5 ML ML SQ SCH ×4 (07:30→19:29)
[2019-07-13] MEDS: TRAMADOL HCL 50 MG TAB PO PRN ×2 (07:40→19:29)
[2019-07-13] MEDS: INSULIN GLARGINE 100 UNITS/ML SQ SCH ×2 (07:42→19:29)
[2019-07-13] MEDS: GUAIFENESIN 600 MG SA TAB PO SCH ×2 (07:43→19:28)
[2019-07-13] MEDS: FE SULF/FA/VIT B COMP & C TAB PO SCH (07:43)
[2019-07-13] MEDS: FERROUS SULFATE 325 MG TAB PO SCH (07:43)
[2019-07-13] MEDS: METOPROLOL TAR 50 MG TAB PO SCH ×2 (07:43→19:28)
[2019-07-13] MEDS: AMLODIPINE 5 MG TAB PO SCH (07:44)
[2019-07-13] MEDS: ASPIRIN EC 81 MG TAB PO SCH (07:44)
[2019-07-13] MEDS: DOXYCYCLINE 100 MG CAP PO SCH ×2 (07:44→19:28)
[2019-07-13] MEDS: glipiZIDE 5 MG TAB PO SCH ×2 (07:44→17:06)
[2019-07-13] MEDS: COLCHICINE 0.6 MG TAB PO SCH (07:44)
[2019-07-13] MEDS: LORATADINE 10 MG TAB PO SCH (07:45)
[2019-07-13] MEDS: hydroCHLOROthiazide 12.5 MG CAP PO SCH (07:45)
[2019-07-13] MEDS: LOSARTAN POTASSIUM 50 MG TABLET PO SCH (07:45)
[2019-07-13] MEDS: JUVEN PACKET PO SCH ×2 (07:46→19:21)
[2019-07-13] MEDS: PROMOD 30 ML DOSE PO SCH ×2 (07:46→19:21)
[2019-07-13] MEDS: BACI/NEOMYCIN/POLY OINT 15GM TOP SCH (08:33)
[2019-07-13] MEDS: MEDIHONEY 44 ML TOPICAL TUBE TOP SCH (08:33)
[2019-07-13] MEDS: LIDOCAINE 4% PATCH TOP SCH (08:45)
--- NOTE | 2019-07-13 14:18 | FAST ---
ENCOUNTER DATE AND TIME: 07/13/2019 08:00 (CDT) NAME NABIL MARTI DATE OF : 1945 DATE OF ADMISSION: 06/22/2019 18:11 (CDT) PHONE: AGE: 74 N# [id number] GENDER: Male ENCOUNTER PHYSICIAN: Dr. Magdi De Jesus M.D. ADMISSION DIAGNOSIS: - Orthopaedic Disorders 08 - Unilateral Hip Fracture (08.11) RIGHT HIP FRACTURE. EATING: Not assessed/no information CODE: - ORAL HYGIENE: ORAL HYGIENE - STEP 1: Does the patient complete the activity by him/herself with no assistance (physical, verbal/nonverbal cueing, setup/clean-up)? Yes. 1. ADMISSION PERFORMANCE: Independent CODE: 06 TOILETING HYGIENE: Not assessed/no information CODE: - BATHING: SHOWER/BATHE SELF - STEP 1: Does the patient complete the activity by him/herself with no assistance (physical, verbal/nonverbal cueing, setup/clean-up)? Yes. 1. ADMISSION PERFORMANCE: Independent CODE: 06 DRESSING - UPPER BODY: DRESSING - UPPER BODY - STEP 1: Does the patient complete the activity by him/herself with no assistance (physical, verbal/nonverbal cueing, setup/clean-up)? Yes. 1. ADMISSION PERFORMANCE: Independent CODE: 06 DRESSING - LOWER BODY: DRESSING - LOWER BODY - STEP 1: Does the patient complete the activity by him/herself with no assistance (physical, verbal/nonverbal cueing, setup/clean-up)? Yes. 1. ADMISSION PERFORMANCE: Independent CODE: 06 PUTTING ON/TAKING OFF FOOTWEAR: FOOTWEAR - STEP 1: Does the patient complete the activity by him/herself with no assistance (physical, verbal/nonverbal cueing, setup/clean-up)? Yes. 1. [id number] ADMISSION PERFORMANCE: Independent CODE: 06 DOES THE PATIENT USE A WHEELCHAIR/SCOOTER? CODE: EXPR INDICATE THE TYPE OF WHEELCHAIR/SCOOTER USED: CODE: EXPR INDICATE THE TYPE OF WHEELCHAIR/SCOOTER USED: CODE: EXPR BLADDER AND BOWEL: CODE: EXPR CODE: EXPR SIGNATURE PANEL: The following modified sections: 1. HK0855E Admission Performance, 1. IT1579w Admission Performance, 1. OO2677n Admission Performance, 1. AY4412b Admission Performance, 1. SZ9655c Admission Performance were [electronically] signed by ANNY Ayala on SatJul 13 2019 14:17:45 GMT-0500 (Central Daylight Time)
--- NOTE | 2019-07-13 15:59 | FAST ---
SHIFT START DATE/TIME: 07/13/2019 07:00 (CDT) SHIFT END DATE/TIME: 07/13/2019 19:00 (CDT) NAME NABIL MARTI DATE OF : 1945 DATE OF ADMISSION: 06/22/2019 18:11 (CDT) PHONE: AGE: 74 N# [id number] GENDER: Male ENCOUNTER PHYSICIAN: Dr. Magdi De Jesus M.D. ADMISSION DIAGNOSIS: - Orthopaedic Disorders 08 - Unilateral Hip Fracture (08.11) RIGHT HIP FRACTURE. EATING: EATING - STEP 1: Does the patient complete the activity by him/herself with no assistance (physical, verbal/nonverbal cueing, setup/clean-up)? No. EATING - STEP 2: Does the patient need only setup/clean-up assistance from one helper? No. EATING - STEP 3: Does the patient need only verbal/nonverbal cueing or touching/steadying/contact guard assistance fro m one helper? Yes. 1. [id number] ADMISSION PERFORMANCE: Supervision or touching assistance CODE: 04 ORAL HYGIENE: ORAL HYGIENE - STEP 1: Does the patient complete the activity by him/herself with no assistance (physical, verbal/nonverbal cueing, setup/clean-up)? Yes. 1. [id number] ADMISSION PERFORMANCE: Independent CODE: 06 TOILETING HYGIENE: TOILETING HYGIENE - STEP 1: Does the patient complete the activity by him/herself with no assistance (physical, verbal/nonverbal cueing, setup/clean-up)? No. TOILETING HYGIENE - STEP 2: Does the patient need only setup/clean-up assistance from one helper? No. TOILETING HYGIENE - STEP 3: Does the patient need only verbal/nonverbal cueing or touching/steadying/contact guard assistance fro m one helper? Yes. 1. [id number] ADMISSION PERFORMANCE: Supervision or touching assistance CODE: 04 BATHING: Not assessed/no information CODE: - DRESSING - UPPER BODY: Not assessed/no information CODE: - DRESSING - LOWER BODY: Not assessed/no information CODE: - PUTTING ON/TAKING OFF FOOTWEAR: Not assessed/no information CODE: - ROLL LEFT AND RIGHT: ROLL LEFT AND RIGHT - STEP 1: Does the patient complete the activity by him/herself with no assistance (physical, verbal/nonverbal cueing, setup/clean-up)? No. ROLL LEFT AND RIGHT - STEP 2: Does the patient need only setup/clean-up assistance from one helper? No. ROLL LEFT AND RIGHT - STEP 3: Does the patient need only verbal/nonverbal cueing or touching/steadying/contact guard assistance fro m one helper? Yes. 1. [id number] ADMISSION PERFORMANCE: Supervision or touching assistance CODE: 04 SIT TO LYING: SIT TO LYING - STEP 1: Does the patient complete the activity by him/herself with no assistance (physical, verbal/nonverbal cueing, setup/clean-up)? No. SIT TO LYING - STEP 2: Does the patient need only setup/clean-up assistance from one helper? No. SIT TO LYING - STEP 3: Does the patient need only verbal/nonverbal cueing or touching/steadying/contact guard assistance fro m one helper? Yes. 1. [id number] ADMISSION PERFORMANCE: Supervision or touching assistance CODE: 04 LYING TO SITTING: LYING TO SITTING ON SIDE OF BED - STEP 1: Does the patient complete the activity by him/herself with no assistance (physical, verbal/nonverbal cueing, setup/clean-up)? No. LYING TO SITTING ON SIDE OF BED - STEP 2: Does the patient need only setup/clean-up assistance from one helper? No. LYING TO SITTING ON SIDE OF BED - STEP 3: Does the patient need only verbal/nonverbal cueing or touching/steadying/contact guard assistance fro m one helper? Yes. 1. [id number] ADMISSION PERFORMANCE: Supervision or touching assistance CODE: 04 SIT TO STAND: SIT TO STAND - STEP 1: Does the patient complete the activity by him/herself with no assistance (physical, verbal/nonverbal cueing, setup/clean-up)? No. SIT TO STAND - STEP 2: Does the patient need only setup/clean-up assistance from one helper? No. SIT TO STAND - STEP 3: Does the patient need only verbal/nonverbal cueing or touching/steadying/contact guard assistance fro m one helper? Yes. 1. [id number] ADMISSION PERFORMANCE: Supervision or touching assistance CODE: 04 TRANSFERS: BED, CHAIR: CHAIR/[id number] TRANSFER - STEP 1: Does the patient complete the activity by him/herself with no assistance (physical, verbal/nonverbal cueing, setup/clean-up)? No. CHAIR/[id number] TRANSFER - STEP 2: Does the patient need only setup/clean-up assistance from one helper? No. CHAIR/[id number] TRANSFER - STEP 3: Does the patient need only verbal/nonverbal cueing or touching/steadying/contact guard assistance fro m one helper? Yes. 1. [id number] ADMISSION PERFORMANCE: Supervision or touching assistance CODE: 04 TRANSFER TOILET: TOILET TRANSFER - STEP 1: Does the patient complete the activity by him/herself with no assistance (physical, verbal/nonverbal cueing, setup/clean-up)? No. TOILET TRANSFER - STEP 2: Does the patient need only setup/clean-up assistance from one helper? No. TOILET TRANSFER - STEP 3: Does the patient need only verbal/nonverbal cueing or touching/steadying/contact guard assistance fro m one helper? Yes. 1. [id number] ADMISSION PERFORMANCE: Supervision or touching assistance CODE: 04 TRANSFERS: CAR: Not assessed/no information CODE: - WALK 10 FEET: Not assessed/no information CODE: - 1 STEP (CURB): Not assessed/no information CODE: - PICKING UP OBJECT: Not assessed/no information CODE: - DOES THE PATIENT USE A WHEELCHAIR/SCOOTER? CODE: EXPR WHEEL 50 FEET WITH TWO TURNS: Not assessed/no information CODE: - INDICATE THE TYPE OF WHEELCHAIR/SCOOTER USED: CODE: EXPR WHEEL 150 FEET: Not assessed/no information CODE: - INDICATE THE TYPE OF WHEELCHAIR/SCOOTER USED: CODE: EXPR BLADDER AND BOWEL: H350. BLADDER CONTINENCE (3-DAY ASSESSMENT PERIOD): Stress incontinence only CODE: 1 H400. BOWEL CONTINENCE (3-DAY ASSESSMENT PERIOD): Always continent CODE: 0 SIGNATURE PANEL: The following modified sections: 1. [id number] Admission Performance, 1. PS9834M Admission Performance, 1. ET9473W Admission Performance, 1. MN5262B Admission Performance, 1. FL6799H Admission Performance, 1. NP0401P Admission Performance, 1. TK2267S Admission Performance, 1. TS2097M Admission Performance , 1. WG2007D Admission Performance, 1. TF1427Z Admission Performance, 1. CC3598B Admission Performanc e, Code, H350. Bladder Continence (3-day assessment period), H400. Bowel Continence (3-day assessment period) were [electronically] signed by Scott Alonzo on SatJul 13 2019 15:58:34 GMT-0500 (Central Day light Time)
--- NOTE | 2019-07-13 16:40 | RAD REPORT ---
EXAM DESCRIPTION: RAD - Hip Right 2 View - 07/13/2019 4:28 pm CLINICAL HISTORY: Right hip infection COMPARISON: Hip Right 2 View dated 06/21/2019 FINDINGS: Right total hip arthroplasty is noted. No evidence of hardware loosening is seen. No fract ure or aggressive marrow lesion.
--- NOTE | 2019-07-13 18:28 | R.PN ---
ENCOUNTER DATE AND TIME: 07/13/2019 18:26 (CDT) NAME NABIL MARTI DATE OF : 1945 DATE OF ADMISSION: 06/22/2019 18:11 (CDT) RIGHT HIP FRACTURECHIEF COMPLAINT: Right hip fracture SUBJECTIVE: Pt denied any depression. Pt denied any Shortness of Breath. He has less bilateral knee pain after 5% lidoderm patches were placed. He is making good overall prog ress with physical and occupational therapy. Blood work is stable. VITAL SIGNS Temperature: 97.4 F SBP/DBP:153/86 Pulse: 78 Resp: 17 MEDICATION ALLERGIES: No Known Drug Allergies (NKDA) ENVIRONMENTAL ALLERGIES: None Known - Substance Allergies None Known - Other Allergies None Known NURSING: - Shower allowing shower - Lab Results blood Sugar Check ACHS - Skin care per protocol PRECAUTIONS: - Posterior Hip Precaution No adduction across midline No external rotation No hip flexion >90 degrees No internal rotation No wheel chair propulsion - Weight Bearing Precaution WBAT right LE ACTIVITIES OOB only with supervision THERAPIES: - Dietary and Nutrition Adequate Nutrition. Nutritional Education. Nutritional Supplements. PHYSICAL EXAM - Gen Alert and awake Lying in bed No apparent distress Oriented to: person, time, and place - Skin Right hip incision intact No abnormalities - Eyes No abnormalities - ENMT No abnormalities - Neck No abnormalities - CVS RRR - Chest No abnormalities - Resp Clear to auscultation - Abd Soft - GI nondistended Deferred - No abnormalities - Ext Mild bilateral lower extremity edema. - MSK 4+/5 weakness in both lower extremities. - Neuro No focal deficits - Psych No abnormalities ASSESSMENT: Pt. is a 74 yo Right-handed white male.On 06/20/2019 he was admitted to [facility] with diagnosis RIGHT HIP FRACTURE.His impairment category is Orthopaedic Disorders 08 - Unilater al Hip Fracture (08.11).Pre-morbidly, Pt. was independent/mod-I in Self-Care, Sphincter Control, Miguel sfers Control, Locomotion, Communication, and Social Cognition; and he had good Sphincter Control.Cur rently, he has deficits of Self-Care, Transfers Control, Locomotion, Endurance, Balance, and Safety A wareness.Pt. is now referred to [facility] for acute in-patient rehabilitation in order to maximize patient's functional independence in activities of daily living, strength, ROM, and mobility.- Rehab Goal Patient has realistic goal of being discharged at assistance level 6-[place] to reside at Home with Fam delmy/Relatives. MDM/PLAN: - Physical Therapy Decreased range of motion - to improve, our physical therapists will perform initial evaluation of p t's status upon admission and devise an individualized program for increasing patient's Range of Patricio on. Gait dysfunction - to improve, our physical therapists will perform initial evaluation of pt's statu s upon admission and devise an individualized program for Gait Training, and Wheel Chair mobility Inability to transfer - to improve, our physical therapists will perform initial evaluation of pt's status upon admission and devise an individualized program for Bed mobility Need for home safety evaluation - to improve, our physical therapists will perform initial evaluatio n of pt's status upon admission and devise an individualized program for Home Evaluation Need in caregiver upon discharge - to improve, our physical therapists will perform initial evaluati on of pt's status upon admission and devise an individualized program for Caregiver Training Edema - to improve, our physical therapists will perform initial evaluation of pt's status upon admi ssion and devise an individualized program for Elevation Training, and Lymphedema Therapy New precaution - to improve, our physical therapists will perform initial evaluation of pt's status upon admission and devise an individualized program for Patient precaution education Poor balance - to improve, our physical therapists will perform initial evaluation of pt's status up on admission and devise an individualized program for Balance Training Poor endurance - to improve, our physical therapists will perform initial evaluation of pt's status upon admission and devise an individualized program for Endurance Training Weakness - to improve, our physical therapists will perform initial evaluation of pt's status upon a dmission and devise an individualized program for Aquatic Therapy, Neuromuscular Reeducation, and Str engthening Achieving independence - to improve, our physical therapists will perform initial evaluation of pt's status upon admission and devise an individualized program for Community Reintegration Activities - Occupational Therapy ADL deficits - to improve, our occupation therapists will perform initial evaluation of pt's status upon admission and devise an individualized program for Bathing, Bed mobility, Community Reintegratio n, Cooking, Dressing, Eating, Fine Motor Skills, Grooming, Homemaking, Kitchen Mobility, Laundry, Pat ient Education, Safety Awareness, Splinting - Positioning, Transfers(Toilet, Tub, Shower), and Wheel Chair Management Need for childbirth and infant care teacher - to improve, our occupation therapists will perform initial evaluation of pt's status upon admission and devise an individualized program for Caregiver Training Weakness - to improve, our occupation therapists will perform initial evaluation of pt's status upon admission and devise an individualized program for Aquatic Therapy, Balance, Endurance, UE ROM, and UE strengthening - Other See attached MAR (Medication Administration Record) See attached MAR (Medication Administration Record) Nabil Marti.pdf - Anterior Hip Precaution No abduction No active extension No adduction across midline No external rotation No hip flexion >90 degrees No internal rotation - Diet - Liquid Texture Continue Regular - Tube Feed Continue N/A - Diet Type Continue Regular - Posterior Hip Precaution No adduction across midline No external rotation No hip flexion >90 degrees No internal rotation No wheel chair propulsion - Lab Results blood Sugar Check ACHS - Weight Bearing Precaution WBAT right LE - Skin care per protocol - Diet - Solid Texture Continue Regular - Shower allowing shower FUNCTIONAL STATUS: UPDATED AT WEEKLY TEAM CONFERENCE - Bladder Same accident frequency: 7-Ind - No accidents in the past 7 days - Bowel Same accident frequency: 7-Ind - No accidents in the past 7 days - Walking Same score based on distance walked: 1(<=50ft) - Wheelchair Same score based on distance traveled: 0(N/A) FUNCTIONAL STATUS: - Self-Care A. Eating sup B. Grooming sup C. Bathing modA D. Dressing - Upper modA E. Dressing - Lower maxA F. Toileting maxA - Sphincter Control G: Bladder control Ind H: Bowel control Ind - Transfers Control I. Bed/Chair/Wheelchair maxA J. Toilet maxA K. Tub/Shower ADNO - Locomotion L. Walk/Wheelchair (C) maxA L. Walk/Wheelchair (W) maxA M. Stairs ADNO - Communication N. Comprehension (B) Ind O. Expression (B) Ind - Social Cognition P. Social Interaction Ind Q. Problem Solving Ind R. Memory Ind - Endurance Poor - Balance Fair - Safety Awareness Fair QI SCORES:: - Self-Care A. Eating 05-Setup or clean-up assistance B. Oral hygiene 05-Setup or clean-up assistance C. Toileting hygiene 02-Substantial/maximal assistance E. Shower/bathe self 02-Substantial/maximal assistance F. Upper body dressing 02-Substantial/maximal assistance G. Lower body dressing 02-Substantial/maximal assistance H. Putting on/taking off footwear 02-Substantial/maximal assistance - Mobility A. Roll left and right 02-Substantial/maximal assistance B. Sit to lying 02-Substantial/maximal assistance C. Lying to sitting on side of bed 02-Substantial/maximal assistance D. Sit to stand 02-Substantial/maximal assistance E. Chair/[id number] transfer 02-Substantial/maximal assistance F. Toilet transfer 02-Substantial/maximal assistance G. Car transfer 88-Not attempted due to medical condition or safety concerns I. Walk 10 feet 01-Dependent J. Walk 50 feet with two turns 88-Not attempted due to medical condition or safety concerns K. Walk 150 feet 01-Dependent L. Walking 10 feet on uneven surfaces 09-Not applicable M. 1 step (curb) 09-Not applicable N. 4 steps 88-Not attempted due to medical condition or safety concerns O. 12 steps 88-Not attempted due to medical condition or safety concerns P. Picking up object 88-Not attempted due to medical condition or safety concerns R. Wheel 50 feet with two turns 88-Not attempted due to medical condition or safety concerns S. Wheel 150 feet 88-Not attempted due to medical condition or safety concerns - Bladder and Bowel Bladder continence 0-Always continent Bowel continence 0-Always continent CURRENT FUNC. DEFICITS: Self-Care, Transfers Control, Locomotion, Endurance, Balance, and Safety Awareness SIGNATURE PANEL: (CDT)
[2019-07-13] MEDS: TERAZOSIN HCL 5 MG CAP PO SCH (19:28)
[2019-07-14] MEDS: MAGNESIUM OXIDE 400 MG TAB PO SCH (05:04)
[2019-07-14] MEDS: ENOXAPARIN 40 MG/0.4 ML SQ SCH (06:29)
[2019-07-14] MEDS: PANTOPRAZOLE 40MG TABLET PO SCH (06:29)
[2019-07-14] MEDS: LIDOCAINE 4% PATCH TOP SCH (06:30)
[2019-07-14] MEDS: NYSTATIN PWDR 100000 UNIT/GM TOP SCH (06:31)
[2019-07-14] MEDS: INSULIN -REGULAR HUMAN 50 UNIT/0.5 ML ML SQ SCH ×2 (07:30→11:30)
[2019-07-14 07:34] VITALS: TEMP 96.8
[2019-07-14] MEDS: JUVEN PACKET PO SCH (08:00)
[2019-07-14] MEDS: PROMOD 30 ML DOSE PO SCH (08:00)
[2019-07-14] MEDS: INSULIN GLARGINE 100 UNITS/ML SQ SCH (08:02)
[2019-07-14] MEDS: TRAMADOL HCL 50 MG TAB PO PRN (08:03)
[2019-07-14] MEDS: DOXYCYCLINE 100 MG CAP PO SCH (08:04)
[2019-07-14] MEDS: FE SULF/FA/VIT B COMP & C TAB PO SCH (08:04)
[2019-07-14] MEDS: hydroCHLOROthiazide 12.5 MG CAP PO SCH (08:04)
[2019-07-14] MEDS: FERROUS SULFATE 325 MG TAB PO SCH (08:05)
[2019-07-14] MEDS: glipiZIDE 5 MG TAB PO SCH (08:05)
[2019-07-14] MEDS: METOPROLOL TAR 50 MG TAB PO SCH (08:06)
[2019-07-14] MEDS: LORATADINE 10 MG TAB PO SCH (08:06)
[2019-07-14] MEDS: AMLODIPINE 5 MG TAB PO SCH (08:07)
[2019-07-14] MEDS: ASPIRIN EC 81 MG TAB PO SCH (08:07)
[2019-07-14] MEDS: COLCHICINE 0.6 MG TAB PO SCH (08:07)
[2019-07-14] MEDS: LOSARTAN POTASSIUM 50 MG TABLET PO SCH (08:07)
[2019-07-14] MEDS: GUAIFENESIN 600 MG SA TAB PO SCH (08:07)
[2019-07-14 08:08] VITALS: BP 122/74
[2019-07-14] MEDS: MEDIHONEY 44 ML TOPICAL TUBE TOP SCH (08:32)
[2019-07-14] MEDS: BACI/NEOMYCIN/POLY OINT 15GM TOP SCH (08:32)
== END 2019-07-14 13:45 | disposition home health service (06) | DRG 560 ==
LOC: 5TH 18:11
PROVIDERS: ADMIT Psychiatry & Neurology Neurology with Special Qualifications in Child Neurology; ATTEND Psychiatry & Neurology Neurology with Special Qualifications in Child Neurology
DX: S72.001D Fracture of unspecified part of neck of right femur, subsequent encounter for closed fracture with routine healing (principal); E87.2 Acidosis; N17.9 Acute kidney failure, unspecified; Z96.641 Presence of right artificial hip joint; E11.40 Type 2 diabetes mellitus with diabetic neuropathy, unspecified; E11.65 Type 2 diabetes mellitus with hyperglycemia; I10 Essential (primary) hypertension; E78.5 Hyperlipidemia, unspecified; D63.8 Anemia in other chronic diseases classified elsewhere; K76.0 Fatty (change of) liver, not elsewhere classified; E86.0 Dehydration; E66.9 Obesity, unspecified; M19.90 Unspecified osteoarthritis, unspecified site; N40.0 Benign prostatic hyperplasia without lower urinary tract symptoms; L89.612 Pressure ulcer of right heel, stage 2; Z89.422 Acquired absence of other left toe(s); Z68.38 Body mass index [BMI] 38.0-38.9, adult; Z87.01 Personal history of pneumonia (recurrent)
CPT/HCPCS: 36415; 71045; 80048; 80053; 81003; 81015; 82040; 82150; 82248; 82962; 83605; 83690; 83735; 84134; 84145; 85025; 87040; 87086; 87088; 97110; 97112; 97116; 97161; 97530; 97542; 99251; J1650; J1815; J7030